=== PATIENT | male | born 1945 | race Caucasian/White ===

== ENCOUNTER 2016-08-22 18:19 | Inpatient (IN) | payer OTHER ==
[~2016-08-22] VITALS: Ht 182.9 cm; Wt 106.6 kg
[~2016-08-22 18:19] MED LIST: ALEVE220 M2 PO; COMBIVENT RESPIM4 GM; HYDROCODON-ACE1 EAC5 PO; HYSINGLA PO; MEDROL4 M2 PO; OMEPRAZOLE40 M1 PO; PERCOCET 5-3251 EACH PO; PREDNISONE10 M2 PO; PROVENTIL HFA6.7 GM INH; SPIRIVA18 MCG INH; SYMBICORT 16010.2 GM INH; TYLENOL EXTRA500 M2 PO
--- NOTE | 2016-08-22 18:23 | ED GENERAL ADULT ---
History of Present Illness General Chief Complaint: Dyspnea (COPD, CHF, Other) Stated Complaint: BIBA DYSPNEA Allergies Coded Allergies: NO KNOWN ALLERGIES (05/16/14) Reconcile Medications Acetaminophen (Tylenol Extra Strength) 500 MG TABLET 2 TAB PO PRN PAIN ( Reported) Albuterol Sulfate (Proventil Hfa) 90 MCG HFA.AER.AD 2 PUF INH PRN EMPHYSEMA ( Reported) Budesonide/Formoterol Fumarate (Symbicort 160-4.5 Mcg Inhaler) 160 MCG-4.5 MCG/ ACTUATION HFA.AER.AD 2 PUF INH TID EMPHYSEMA (Reported) Hydrocodone/Acetaminophen (Hydrocodon-Acetaminophen 5-300) (Unknown Strength) TABLET (Unknown Dose) PO TID PAIN (Reported) Naproxen Sodium (Aleve) 220 MG TABLET 2 TAB PO DAILY PAIN (Reported) Omeprazole 40 MG CAPSULE.DR 1 CAP PO DAILY GI (Reported) Prednisone 10 MG TABLET 0 PO SI COPD/Pneumonitis 06/15/16-06/19/16 take 6 tablets daily 06/20/16- 06/24/16 take 5 tablets daily 06/25/16- 06/29/16 take 4 tablets daily 06/30/16- 07/04/16 take 3 tablets daily 07/05/16-07/09/16 take 2 tablets daily 07/10/16- 07/14/16 take 1 tablet daily and then stop. 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
--- NOTE | 2016-08-22 18:26 | ED DYSPNEA/ASTHMA COMPLAINT ---
History of Present Illness General Chief Complaint: Dyspnea (COPD, CHF, Other) Stated Complaint: BIBA DYSPNEA Source: patient Exam Limitations: no limitations Vital Signs & Intake/Output Vital Signs & Intake/Output Vital Signs Date Time Temp Pulse Resp B/P Pulse O2 O2 Flow FiO2 Ox Delivery Rate 08/22 2058 97.5 91 20 127/77 92 Venti Mask 55% 08/22 190 94 Non 100% ReBreather 08/22 1854 97.8 104 20 107/75 94 Non 100% ReBreather 08/22 1836 97 Non 100% ReBreather Allergies Coded Allergies: NO KNOWN ALLERGIES (05/16/14) Reconcile Medications Acetaminophen (Tylenol Extra Strength) 500 MG TABLET 2 TAB PO PRN PAIN ( Reported) Albuterol Sulfate (Proventil Hfa) 90 MCG HFA.AER.AD 2 PUF INH PRN EMPHYSEMA ( Reported) Budesonide/Formoterol Fumarate (Symbicort 160-4.5 Mcg Inhaler) 160 MCG-4.5 MCG/ ACTUATION HFA.AER.AD 2 PUF INH TID EMPHYSEMA (Reported) Cholecalciferol (Vitamin D3) (Vitamin D) (Unknown Strength) TABLET (Unknown Dose) PO DAILY SUPPLEMENT (Reported) Cyanocobalamin (Vitamin B-12) (Unknown Strength) TABLET (Unknown Dose) PO QMON SUPPLEMENT (Reported) Hydrocodone/Acetaminophen (Hydrocodon-Acetaminophen 5-300) (Unknown Strength) TABLET (Unknown Dose) PO BID PAIN (Reported) Naproxen Sodium (Aleve) 220 MG TABLET 2 TAB PO DAILY PAIN (Reported) Omeprazole 40 MG CAPSULE.DR 1 CAP PO DAILY GI (Reported) Prednisone 10 MG TABLET 0 PO SI COPD/Pneumonitis 06/15/16-06/19/16 take 6 tablets daily 06/20/16- 06/24/16 take 5 tablets daily 06/25/16- 06/29/16 take 4 tablets daily 06/30/16- 07/04/16 take 3 tablets daily 07/05/16-07/09/16 take 2 tablets daily 07/10/16- 07/14/16 take 1 tablet daily and then stop. Tiotropium [place] (Spiriva) 18 MCG CAP.W.DEV 1 CAP INH DAILY EMPHYSEMA ( Reported) Triage Nurses Notes Reviewed? yes Onset: Abrupt Duration: day(s): (4), constant, continues in ED Timing: recent history Severity: moderate, severe HPI: 7-year-old male comes into the emergency room with complaints of shortness of breath is been going on for the past few weeks but increased over the past 4 days to the point where if he walks 5-6 feet he feels short of breath. Patient is on oxygen 60 L at home. History of COPD. Ambulance reports that his O2 saturation was 79% on arrival. They placed patient on high flow oxygen. His O2 saturation came up to the mid 90s. Patient denies any chest pain. Associated cough. Denies any vomiting or fever chills. Patient does admit to a history of blood clots in his left leg. Patient is currently not on anticoagulants. (YISSEL JOHN) Past History Travel History Traveled to [place] past 21 day No Medical History Any Pertinent Medical History? 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 No (YISSEL JOHN) Review of Systems Review of Systems Constitutional: Reports: see HPI. EENTM: Reports: no symptoms. Respiratory: Reports: see HPI. Cardiovascular: Reports: no symptoms. GI: Reports: no symptoms. Genitourinary: Reports: no symptoms. Musculoskeletal: Reports: no symptoms. Skin: Reports: no symptoms. Neurological/Psychological: Reports: no symptoms. Hematologic/Endocrine: Reports: no symptoms. Immunologic/Allergic: Reports: no symptoms. All Other Systems: Reviewed and Negative (YISSEL JOHN) Physical Exam Physical Exam General Appearance: alert, awake, moderate distress Head: atraumatic, normal appearance Eyes: Bilateral: normal appearance, EOMI. Ears, Nose, Throat: normal pharynx, normal ENT inspection Neck: normal inspection, full range of motion Respiratory: decreased breath sounds, respiratory distress (MODERATE) Cardiovascular: regular rate/rhythm Gastrointestinal: soft Extremities: normal inspection Neurologic/Psych: awake, alert, oriented x 3 Skin: intact, normal color Core Measures ACS in differential dx? No Severe Sepsis Present: No Septic Shock Present: No (YISSEL JOHN) Progress Differential Diagnosis: asthma, AMI, bronchitis, costochondritis, CHF, COPD, musculoskeletal pain, pericarditis, pulmonary embolism, pneumonia, pneumothorax, rib fracture, unstable angina Plan of Care: Orders Procedure Date/time Status Admit to inpatient 08/22 2227 Active THERAPIST ORDERS 08/22 2150 Complete ARTERIAL BLOOD GAS (GEN) 08/22 1826 Complete TROPONIN LEVEL 08/22 1826 Complete D-DIMER 08/22 1826 Complete COMPREHENSIVE METABOLIC PANEL 08/22 1826 Complete CBC WITHOUT DIFFERENTIAL 08/22 1826 Complete EKG 08/22 1826 Active Current Medications Sig/[place]etta Start time Last Medication Dose Stop Time Status Admin Azithromycin 500 MG ONCE ONE 08/22 2230 AC (Zithromax) 08/22 2329 Sodium Chloride 250 ML (Normal Saline 0.9%) Ceftriaxone Sodium 1,000 MG ONCE ONE 08/22 2230 AC (Rocephin) 08/22 2231 Laboratory Tests 08/22/161936: Anion Gap 10, Estimated GFR > 60, BUN/Creatinine Ratio 32.5 H, Glucose 126 H, Calcium 8.9, Total Bilirubin 1.0, AST 13 L, ALT 18 L, Alkaline Phosphatase 70, Troponin I < 0.01, Total Protein 6.3, Albumin 3.3 L, Globulin 3.0, Albumin/ Globulin Ratio 1.1, D-Dimer 833 H 08/22/161935: CBC w Diff NO MAN DIFF REQ, RBC 5.14, MCV 88.3, MCH 29.9, RDW 17.0 H, MPV 6.8 L, Gran % 84.7 H, Lymphocytes % 8.1 L, Monocytes % 6.9, Eosinophils % 0.1, Basophils % 0.2, Absolute Granulocytes 8.2 H, Absolute Lymphocytes 0.8 L, Absolute Monocytes 0.7 H, Absolute Eosinophils 0, Absolute Basophils 0, PUBS MCHC 33.8 08/22/161829: pH 7.46 H, pCO2 25 L, pO2 153 H, HCO3 17 L, ABG O2 Sat (Measured) 96.0, Carboxyhemoglobin 2.2, O2 Concentration % 100%, O2 Delivery Method NRB, Phlebotomy Draw Site RIGHT RADIAL Diagnostic Imaging: Viewed by Me: Radiology Read. Discussed w/RAD: Radiology Read. Radiology Impression: SERVICE DATE: 08/22/16 EXAM TYPE: RAD - XRY- PORTABLE CHEST XRAY EXAMINATION: XR PORTABLE CHEST CLINICAL INFORMATION: Shortness of breath. COMPARISON: Multiple prior studies. Most recent exams Chest x-ray 07/08/2016, CT chest 06/11/2016 TECHNIQUE: Portable view of the chest was obtained. 6:31 PM FINDINGS: Extensive interstitial lung disease similar prior studies. Lung volume is low. This likely accounts for the slight increased density in the peripheral lung at the mid and lower lobes relative to prior chest x-ray. An underlying infiltrate, particularly on the right lung, cannot be entirely excluded however. No pleural effusion. IMPRESSION: Extensive interstitial lung disease. Increased density in the right and left midlung which can be accentuated by the low inspiratory effort. An underlying infiltrate cannot be entirely excluded, particularly in the right lung. DICTATED BY: HAILY CAMP MD DATE/TIME DICTATED:08/22/161848 Initial ED EKG: normal intervals, normal p-waves, normal sinus rhythm, rate (101 ), nonspecific ST T wave chg, left anterior fascicular block Prior EKG: unchanged Hand-Off Endorsed To: MEHRDAD VALLADARES MD Endorsed Time: 1955 Pending: CT, labs (ERIN TRAN,YISSEL) Radiology Impression: PATIENT: YULISA FOWLER PRESENT AGE: 70 PATIENT ACCOUNT NO: [id number] : 45 LOCATION: [facility] ORDERING PHYSICIAN: YISSEL TRAN SERVICE DATE: 08/22/16 EXAM TYPE: CAT - CTA CHEST-PULMONARY EMBOLISM EXAMINATION: CT ANGIOGRAM OF THE CHEST WITH AND WITHOUT CONTRAST (CT PULMONARY ANGIOGRAM FOR PE) CLINICAL INFORMATION: Shortness of breath. Hypoxia. COMPARISON: CT chest 06/11/2016. Chest x-ray 08/22/2016 CT chest 12/12/2015 TECHNIQUE: Prior to contrast administration, noncontrast localization images were obtained. Subsequently, multidetector volumetric imaging was performed from the thoracic inlet to below the diaphragms following the administration of 85 mL Optiray 320 intravenous contrast. No contrast reaction reported Sagittal, coronal, and MIP oblique sagittal reformatted images were obtained on the CT workstation, uploaded to PACS, and reviewed. Total exam dose-length product 589.81 mGy-cm FINDINGS: QUALITY OF STUDY/CONTRAST BOLUS: Satisfactory. PULMONARY ARTERIES: No central or segmental pulmonary emboli. THORACIC AORTA: Thoracic aorta is mildly prominent measuring 4 cm transverse unchanged since prior study. There is vascular calcifications of the aortic arch. LUNG: There is underlying interstitial lung disease with emphysematous blebs of the lungs. No significant bronchiectasis. There is diffuse airspace disease with air bronchograms in the anterior right upper lobe in the posterior right lower lobe. This lung disease is worse than the exam of 06/11/2016 and is new since the CAT scan of 12/12/2015. No infiltrate of the left lung. PLEURA: No pleural effusion or pneumothorax. MEDIASTINUM: 1.5 cm diameter lymph node in the pretracheal retrovascular space and 1.4 cm lymph node in the subcarina. These lymph nodes are similar to the CAT scan of 06/11/2016. No evidence of septal bowing or right heart strain. CHEST WALL/AXILLA: No axillary or internal mammary lymphadenopathy. OSSEOUS STRUCTURES: Multilevel degenerative change of the spine with endplate spurs. UPPER ABDOMEN: Surgical changes at the gastroesophageal junction with small hiatal hernia. Cortical cyst at upper pole of right kidney. IMPRESSION: 1. No evidence of pulmonary embolism. 2. Chronic interstitial and emphysematous changes of lung. There is developing confluent airspace disease in the right lung that is worsening since prior exams. Finding of multifocal pneumonia. Patient does have history of lung cancer. Known underlying malignancy cannot be entirely excluded. There is associated mediastinal lymphadenopathy. VTE: Negative. DICTATED BY: HAILY CAMP MD DATE/TIME DICTATED:08/22/162131 RECORD LABEL INTERN:TANISHA DATE/TIME TRANSCRIBED:08/22/162131 CONFIDENTIAL, DO NOT COPY WITHOUT APPROPRIATE AUTHORIZATION. <Electronically signed in Other Vendor System> SIGNED BY: HAILY CAMP MD 08/22/162157 (JACQUELYN CORTÉS,MERHDAD Layton) Departure Departure Disposition: STILL A PATIENT Condition: Stable Clinical Impression Primary Impression: Dyspnea Referrals: JUANA VENEGAS MD (PCP/Family) Referred to [facility] as new patient No Departure Forms: Customer Survey General Discharge Information (YISSEL JHON) Admission Note Spoke With: ANDERS NESBITT MD Documentation of Exam: Documentation of any treatments & extenuating circumstances including Concerns Regarding Discharge (functional status, medication knowledge or non-compliance, living conditions, etc.) that warrant an admission rather than observation: [ Patient to be admitted for IV antibiotics and pulmonary consult. Patient is having increasing oxygen demand. Patient is at high risk to be discharged. EVEN ON high flow O2 and his saturations are 92% at rest.] PA/SUSTAINABILITY PROJECT COORDINATOR Co-Sign Statement Statement: ED Attending supervision documentation- [X] I saw and evaluated the patient. I have also reviewed all the pertinent lab results and diagnostic results. I agree with the findings and the plan of care as documented in the PA's/SUSTAINABILITY PROJECT COORDINATOR's documentation. [X] I have reviewed the ED Record and agree with the PA's/SUSTAINABILITY PROJECT COORDINATOR's documentation. [] Additions or exceptions (if any) to the PAs/SUSTAINABILITY PROJECT COORDINATOR's note and plan are summarized below: [] (JACQUELYN CORTÉS,MEHRDAD Layton) Critical Care Note Critical Care Note Critical Care Time: non-applicable (YISSEL JOHN)
[2016-08-22] MEDS ORDERED: VITAMIN D2000 UNI1 PO (18:56)
--- NOTE | 2016-08-22 18:56 | RADIOLOGY REPORT ---
EXAMINATION: XR PORTABLE CHEST CLINICAL INFORMATION: Shortness of breath. COMPARISON: Multiple prior studies. Most recent exams Chest x-ray 07/08/2016, CT chest 06/11/2016 TECHNIQUE: Portable view of the chest was obtained. 6:31 PM FINDINGS: Extensive interstitial lung disease similar prior studies. Lung volume is low. This likely accounts for the slight increased density in the peripheral lung at the mid and lower lobes relative to prior chest x-ray. An underlying infiltrate, particularly on the right lung, cannot be entirely excluded however. No pleural effusion. IMPRESSION: Extensive interstitial lung disease. Increased density in the right and left midlung which can be accentuated by the low inspiratory effort. An underlying infiltrate cannot be entirely excluded, particularly in the right lung.
[2016-08-22] MEDS ORDERED: VITAMIN B-121000 MC3 PO (18:57)
[2016-08-22 19:46] LABS: ABSOLUTE BASOPHIL COUNT 0 /CUMM (0.0-0.2); ABSOLUTE EOSINOPHIL COUNT 0 /CUMM (0.0-0.7); ABSOLUTE GRANULOCYTE CT 8.2 /CUMM (1.4-6.5); ABSOLUTE LYMPH COUNT 0.8 /CUMM (1.2-3.4); ABSOLUTE MONOCYTE COUNT 0.7 /CUMM (0.10-0.60); BASOPHIL % 0.2 % (0.0-2.0); EOSINOPHIL % 0.1 % (0-5); GRANULOCYTE % 84.7 % (42.2-75.2); HEMATOCRIT 45.4 % (42-52); MEAN CORPUSCULAR HGB 29.9 PG (27.0-31.0); MEAN CORPUSCULAR HGB CONC 33.8 G/DL (33.0-37.0); MEAN CORPUSCULAR VOLUME 88.3 FL (80.0-94.0); MEAN PLATELET VOLUME 6.8 FL (7.4-10.4); PLATELET COUNT 187 /CUMM (130-400); RED BLOOD CELL CT 5.14 /CUMM (4.70-6.10); WHITE BLOOD CELL COUNT 9.7 /CUMM (4.8-10.8)
--- NOTE | 2016-08-22 21:58 | CT SCAN REPORT ---
EXAMINATION: CT ANGIOGRAM OF THE CHEST WITH AND WITHOUT CONTRAST (CT PULMONARY ANGIOGRAM FOR PE) CLINICAL INFORMATION: Shortness of breath. Hypoxia. COMPARISON: CT chest 06/11/2016. Chest x-ray 08/22/2016 CT chest 12/12/2015 TECHNIQUE: Prior to contrast administration, noncontrast localization images were obtained. Subsequently, multidetector volumetric imaging was performed from the thoracic inlet to below the diaphragms following the administration of 85 mL Optiray 320 intravenous contrast. No contrast reaction reported Sagittal, coronal, and MIP oblique sagittal reformatted images were obtained on the CT workstation, uploaded to PACS, and reviewed. Total exam dose-length product 589.81 mGy-cm FINDINGS: QUALITY OF STUDY/CONTRAST BOLUS: Satisfactory. PULMONARY ARTERIES: No central or segmental pulmonary emboli. THORACIC AORTA: Thoracic aorta is mildly prominent measuring 4 cm transverse unchanged since prior study. There is vascular calcifications of the aortic arch. LUNG: There is underlying interstitial lung disease with emphysematous blebs of the lungs. No significant bronchiectasis. There is diffuse airspace disease with air bronchograms in the anterior right upper lobe in the posterior right lower lobe. This lung disease is worse than the exam of 06/11/2016 and is new since the CAT scan of 12/12/2015. No infiltrate of the left lung. PLEURA: No pleural effusion or pneumothorax. MEDIASTINUM: 1.5 cm diameter lymph node in the pretracheal retrovascular space and 1.4 cm lymph node in the subcarina. These lymph nodes are similar to the CAT scan of 06/11/2016. No evidence of septal bowing or right heart strain. CHEST WALL/AXILLA: No axillary or internal mammary lymphadenopathy. OSSEOUS STRUCTURES: Multilevel degenerative change of the spine with endplate spurs. UPPER ABDOMEN: Surgical changes at the gastroesophageal junction with small hiatal hernia. Cortical cyst at upper pole of right kidney. IMPRESSION: 1. No evidence of pulmonary embolism. 2. Chronic interstitial and emphysematous changes of lung. There is developing confluent airspace disease in the right lung that is worsening since prior exams. Finding of multifocal pneumonia. Patient does have history of lung cancer. Known underlying malignancy cannot be entirely excluded. There is associated mediastinal lymphadenopathy. VTE: Negative.
--- NOTE | 2016-08-22 23:55 | History & Physical ---
PAUL CORTÉS,[facility] 08/22/16 6584: General Information and HPI MD Statement: I have seen and personally examined YULISA FOWLER and documented this H&P. The patient is a 70 year old M who presented with a patient stated chief complaint of [progressive shortness of breath]. Source of Information: patient, old records Exam Limitations: no limitations History of Present Illness: 70/M with PMH of non-small cell lung cancer S/P radiation at [place] 4 months ago, COPD on 3 L at rest, 8 L on exertion, DVTs 20 years ago not on any anti- coagulation, who presented to [place] ED complaining of progressive shortness breath or the last 10 days. Patient shortness breath started 10 days ago, however according to the patient the last 4 days he became severely short of breath, Even a few steps can give him dyspnea and mild palpitation. Patient oxygen need significantly increased during the last month. Patient denies fever, chills, cough, chest pain, nausea, vomiting, sick contacts, or recent travel. Patient was admitted on May 2016 for acute hypoxic respiratory failure secondary to COPD exacerbation and radiation pneumonitis Patient stated that he received Flu shot this year and Pneumococcal vaccine last year. Allergies/Medications Allergies: Coded Allergies: NO KNOWN ALLERGIES (05/16/14) Home Med list Acetaminophen (Tylenol Extra Strength) 500 MG TABLET 2 TAB PO PRN PAIN ( Reported) Albuterol Sulfate (Proventil Hfa) 90 MCG HFA.AER.AD 2 PUF INH PRN EMPHYSEMA ( Reported) Budesonide/Formoterol Fumarate (Symbicort 160-4.5 Mcg Inhaler) 160 MCG-4.5 MCG/ ACTUATION HFA.AER.AD 2 PUF INH TID EMPHYSEMA (Reported) Cholecalciferol (Vitamin D3) (Vitamin D) (Unknown Strength) TABLET (Unknown Dose) PO DAILY SUPPLEMENT (Reported) Cyanocobalamin (Vitamin B-12) (Unknown Strength) TABLET (Unknown Dose) PO QMON SUPPLEMENT (Reported) Hydrocodone/Acetaminophen (Hydrocodon-Acetaminophen 5-300) (Unknown Strength) TABLET (Unknown Dose) PO BID PAIN (Reported) Naproxen Sodium (Aleve) 220 MG TABLET 2 TAB PO DAILY PAIN (Reported) Omeprazole 40 MG CAPSULE.DR 1 CAP PO DAILY GI (Reported) Prednisone 10 MG TABLET 0 PO SI COPD/Pneumonitis 06/15/16-06/19/16 take 6 tablets daily 06/20/16- 06/24/16 take 5 tablets daily 06/25/16- 06/29/16 take 4 tablets daily 06/30/16- 07/04/16 take 3 tablets daily 07/05/16-07/09/16 take 2 tablets daily 07/10/16- 07/14/16 take 1 tablet daily and then stop. 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 unknown Functional Ability ADLs Independent: dressing, eating, toileting, bathing. Ambulation: independent IADLs Independent: shopping, housework, finances, food prep, telephone, transportation , medication admin. Review of Systems Review of Systems Constitutional: Denies: chills, diaphoresis, fever. Cardiovascular: Reports: palpitations (very mild when SOB). Denies: chest pain, orthopena. Respiratory: Reports: short of breath. Denies: cough, hemoptysis, orthopnea, sputum production. GI: Denies: abdominal pain, bloating, constipation, diarrhea, distention, nausea, vomiting. Genitourinary: Denies: dysuria. Exam & Diagnostic Data Last 24 Hrs of Vital Signs/I&O Vital Signs Date Time Temp Pulse Resp B/P Pulse O2 O2 Flow FiO2 Ox Delivery Rate 08/23 0115 93 08/22 2351 97.8 87 20 134/79 94 40% 08/22 2058 97.5 91 20 127/77 92 Venti Mask 55% 08/22 1904 94 Non 100% ReBreather 08/22 1854 97.8 104 20 107/75 94 Non 100% ReBreather 08/22 1836 97 Non 100% ReBreather Intake & Output 08/23 0800 08/23 0000 08/22 1600 Intake Total Output Total Balance Patient 106.594 kg 106.594 kg Weight Physical Exam General Appearance Alert, Oriented X3, Cooperative, Moderate Distress Skin No Rashes HEENT Atraumatic, PERRLA, EOMI, Mucous Membr. moist/pink Neck No JVD Cardiovascular Regular Rate, Normal S1, Normal S2, No Murmurs Lungs mild wheezing on the right chest from the anterior side Abdomen Normal Bowel Sounds, Soft, No Tenderness Neurological Normal Speech Extremities No Cyanosis, No Edema, clubbing on all fingers Last 24 Hrs of Labs/Regan: Laboratory Tests 08/22/161936: Anion Gap 10, Estimated GFR > 60, BUN/Creatinine Ratio 32.5 H, Glucose 126 H, Calcium 8.9, Total Bilirubin 1.0, AST 13 L, ALT 18 L, Alkaline Phosphatase 70, Troponin I < 0.01, Ziv-D-Ucqliicqaum Pept 336 H, Total Protein 6.3, Albumin 3.3 L, Globulin 3.0, Albumin/Globulin Ratio 1.1, D-Dimer 833 H 08/22/161935: CBC w Diff NO MAN DIFF REQ, RBC 5.14, MCV 88.3, MCH 29.9, RDW 17.0 H, MPV 6.8 L, Gran % 84.7 H, Lymphocytes % 8.1 L, Monocytes % 6.9, Eosinophils % 0.1, Basophils % 0.2, Absolute Granulocytes 8.2 H, Absolute Lymphocytes 0.8 L, Absolute Monocytes 0.7 H, Absolute Eosinophils 0, Absolute Basophils 0, PUBS MCHC 33.8 08/22/161829: pH 7.46 H, pCO2 25 L, pO2 153 H, HCO3 17 L, ABG O2 Sat (Measured) 96.0, Carboxyhemoglobin 2.2, O2 Concentration % 100%, O2 Delivery Method NRB, Phlebotomy Draw Site RIGHT RADIAL Microbiology 08/23 250 URINE ROUT: Legionella Antigen - COMP 08/23 250 URINE ROUT: Streptococcus pneumoniae Antigen (M - COMP 08/23 215 BLOOD: Blood Culture - RECD 08/23 155 BLOOD: Blood Culture - RECD 08/23 42 LOWER RESP: Respiratory Culture - ORD 12/30 0042 LOWER RESP: Gram Stain - ORD Assessment/Plan Assessment: Assessment and plan Acute hypoxic respiratory failure 2/2 HAP. patient with COPD and radiation pneumonitis. Presented with a progressive shortness of breath. She was found to have a pneumonia on imaging. * Patient will be on high flow oxygen goal is saturations above 92% * TRC nebs [id number] * IV Solu-Medrol 40 every 8 hours for COPD * Received 1 dose of IV ceftriaxone and azithromycin in the ED.We'll start patient on vancomycin and ceftazidime to cover HCAP * Blood culture/sputum cultures * Urine strep and Legionella * Continue Symbicort, Spiriva, Ventolin inhalers * Pulmonary consult with Dr. Lowery in a.m. * Inform oncologist Dr. Yadav about the admissision #GERD * We will continue PPI for Heart healthy diet Lovenox Full code As Ranked By This Provider Problem List: 1. Lung cancer 2. Lung nodules 3. Hypoxemia 4. Acute respiratory failure Core Measures/Miscellaneous Acute Coronary Syndrome ACS Diagnosis: No Cerebrovascular Accident CVA/TIA Diagnosis: No Congestive Heart Failure CHF Diagnosis: No Venous Thromboembolism VTE Risk Factors: Acute medical illness, Age > 40, Cancer/chemo/oth therapy VTE Prophylaxis Ordered Inpt: Mech & Pharm No Mech VTE prophylaxis d/t: No contraindications No VTE Pharm Prophylaxis d/t: No contraindications VTE Diagnosis: No VTE Type: NONE VTE Confirmed by (Test): NONE Severe Sepsis Severe Sepsis Present: No Septic Shock Septic Shock Present: No Miscellaneous Documentation Attending Case Discussed With: ANDERS NESBITT MD Primary Care Physician: JUANA VENEGAS MD Patient sees these Specialists JUANA VENEGAS MD Level of Patient Care: General Medicine AMADO JEAN BAPTISTE 08/23/16 0021: Resident Review Statement Resident Statement: examined this patient, discussed with internal combustion engine assembler Other Findings: Patient is a 70-year-old male with past medical history of non-small cell lung cancer status post radiation at [place] 4 months ago, significant COPD/emphysema ( 3 L at rest, 8 L on exertion, previous history of DVTs not on any anti- coagulation), last admission in May 2016 for acute hypoxic respiratory failure secondary to COPD exacerbation and radiation pneumonitis presented to the hospital for increased shortness of breath and worsening respiratory distress. Denies any fever, chills, cough, sputum production, chest pain, palpitations, nausea, vomiting, sick contacts. Had Flu shot this season and Pneumococcal admission last year. His oxygen requirements has increased significantly over the past 4 weeks and he is barely able to ambulate 5-6 steps due to severe hypoxia. Patient desaturated to 79% in the ED and was put on high flow oxygen after which the saturations came up to 90%. Vitals in the ED temperature 97.8, pulse 104, respiration 20, blood pressure 107 /75 saturating 94% on high flow oxygen Labs showed no white count, H&H of 15.4/ 45.4, BUN 26, creatinine 0.8, AST 13, ALT 18, troponin negative, d-dimer 833 AB.46/25/153/17 Chest x-ray: Extensive interstitial lung disease, increased density in the right and the left midlung? Infiltrate in the right lung. Chest CTA: No PE..Chronic interstitial and emphysematous changes of lung. There is developing confluent airspace disease in the right lung that is worsening since prior exams. Finding of multifocal pneumonia.There is associated mediastinal lymphadenopathy. Physical exam: Gen.: Awake, alert, oriented 3, in moderate distress, speaking in full sentences. HEENT: PERRLA, EOMI, high flow oxygen CVS: Tachycardic, S1 and S2 heard, no murmurs rubs and gallops. Chest: Decreased breath sounds bilaterally, wheezing heard and really over the chest. Extremities:1+ pitting edema in bilateral lower extremities to mid shins , Clubbing of fingernails noted. Plan: 1.Acute hypoxic respiratory failure secondary to healthcare associated pneumonia in a patient with COPD/emphysematous changes and radiation pneumonitis. Low probability of PE, Low Wells score. Recent admission to the hospital 2 months ago for COPD exacerbation. [facility] -Continue high flow oxygen to keep oxygen saturations above 92% -TR nebs [id number]-[id number] -IV Solu-Medrol 40 every 8 hours -Received 1 dose of IV ceftriaxone and azithromycin in the ED.We'll start patient on vancomycin and ceftazidime to coverfor MRSA/ Gram negative septicemia. -Blood culture/sputum cultures -Urine strep and Legionella -Continue Symbicort, Spiriva, Ventolin inhalers -Pulmonary consult with Dr. Lowery in a.m. - Inform oncologist Dr. Yadav about the admissision -Continue PPI for GERD -Heart healthy diet -Mild pain pathway -Full code ANDERS NESBITT 08/23/16 0650: Attending MD Review Statement Attending Statement Attending MD Statement: examined this patient, discuss w/resident/PA/DIGITAL MARKETING APPRENTICE, agreed w/resident/PA/DIGITAL MARKETING APPRENTICE, reviewed EMR data (avail), reviewed images, amended to note Attending Assessment/Plan: CC : SOB PMHx: COPD on home oxygen at 3-5 L, remote history of DVT, diagnosis of lung cancer 6 months back status post radiation Patient complains of worsening shortness of breath since last 10 days, present at rest but more with exertion. Patient denies any cough, sputum production, chest pain, sick contacts, loss of consciousness, palpitations. Patient has chronic leg swelling since several years which has not changed recently. When patient could not take a few steps even to bathroom, he decided to come in ER. Patient states that his functionality has markedly declined since his radiation therapy approximately 4 months back, he was admitted in the month of May for suspected pneumonia. Even after treatment for that has not recovered to his normal. Before radiation therapy patient used to play golf for a few hours, now with progressively worsening of shortness of breath over the months, he cannot even walk a few steps. He is on tapering dose of by mouth steroids. He took his pneumonia vaccine last year, and flu shot this season. Vitals: Afebrile, heart rate 104 on presentation, respiratory rate 20-30, BP stable. Patient was saturating 79 % on 8 L nasal cannula at presentation, was started on nonrebreather and was saturating well at 90%. But patient had irritation of the mask so was changed to high flow nasal cannula, patient was maintaining O2 saturations are around 92%. But intermittently even with minimal exertion and talking patient's O2 saturation was dropping along with increased respiratory rate up to high 30s. On examination a O 3, accessory muscles of respiration in use, respiratory distress. No JVD, neck supple, mucosa dry, no lymphadenopathy, no pharyngeal congestion. CVS: S1-S2 heard Jorge and regular. RS: Diffuse crackles bilaterally. Markedly decreased air entry. Abdomen: Soft, NT, ND, bowel sounds present. Patient had pitting edema bilateral feet. Labs show WBC of 9.7 with granulocytes 84%. BUN 26, glucose 126, proBNP 336, d- dimer 833. ABG showed pH 7.46/25/153/17 100% NRB. CXR: Extensive interstitial lung disease. Increased density in the right and left midlung which can be accentuated by the low inspiratory effort. An underlying infiltrate cannot be entirely excluded, particularly in the right lung. CTA chest: No evidence of pulmonary embolism. Chronic interstitial and emphysematous changes of lung. There is developing confluent airspace disease in the right lung that is worsening since prior exams. Finding of multifocal pneumonia. Patient does have history of lung cancer. Known underlying malignancy cannot be entirely excluded. There is associated mediastinal lymphadenopathy. A and P #1 acute hypoxic respiratory failure: Probably secondary to pneumonia and the setting of underlying severe COPD #2 multifocal pneumonia and right lung: Patient does not have significant fever spike, had neutrophilia but patient is on by mouth steroids. CT findings suggest multifocal pneumonia. Given patient's immunocompromised state he may not mount appropriate reaction, he has been hospitalized in the last 3 months, for now we will cover for healthcare associated pneumonia with vancomycin and ceftaz, check flu test, sputum culture, blood culture, continue nebulization, continue high flow nasal cannula, he'll Mucinex, repeat ABG in the morning. Consult pulmonology and infectious diseases in morning. Continue IV prednisone 40 mg every 8 hourly given his extensive COPD. Patient had similar episode in the month of May at that time was found to have radiation pneumonitis. #3 patient and history of lung cancer: Status post radiation therapy. Informed oncology but patient's presence #4: DVT prophylaxis with Lovenox, adequate pain control.
[2016-08-23 06:37] VITALS: BP 98/57
[2016-08-23 06:39] VITALS: BP 110/67
--- NOTE | 2016-08-23 06:53 | Admission Certification ---
Admission Certification Certification Statement - As attending physician, I certify that at the time of - admission, based on clinical presentation, severity of - symptoms, need for further diagnostic testing and - therapeutic interventions, and risk of adverse outcomes - without in-hospital treatment, in my clinical assessment, - this patient requires an acute hospital stay for a minimum - of two nights or longer. I have also considered psychsocial - factors such as support system, advanced age, financial - issues, cognitive issues, and failed out-patient treatments, - past re-admission history, safety of patient, and lack of - compliance as applicable. Specific rationale supporting this admission is: Suspected multifocal right pneumonia, acute on chronic hypoxic respiratory failure
[2016-08-23 08:13] LABS: ABSOLUTE BASOPHIL COUNT 0 /CUMM (0.0-0.2); ABSOLUTE EOSINOPHIL COUNT 0 /CUMM (0.0-0.7); ABSOLUTE GRANULOCYTE CT 6.9 /CUMM (1.4-6.5); ABSOLUTE LYMPH COUNT 0.9 /CUMM (1.2-3.4); ABSOLUTE MONOCYTE COUNT 0.5 /CUMM (0.10-0.60); BASOPHIL % 0.1 % (0.0-2.0); EOSINOPHIL % 0.2 % (0-5); GRANULOCYTE % 82.1 % (42.2-75.2); HEMATOCRIT 41.4 % (42-52); MEAN CORPUSCULAR HGB 29.9 PG (27.0-31.0); MEAN CORPUSCULAR HGB CONC 33.8 G/DL (33.0-37.0); MEAN CORPUSCULAR VOLUME 88.5 FL (80.0-94.0); MEAN PLATELET VOLUME 7.1 FL (7.4-10.4); PLATELET COUNT 202 /CUMM (130-400); RBC DISTRIBUTION WIDTH 16.9 % (11.5-14.5); RED BLOOD CELL CT 4.68 /CUMM (4.70-6.10); WHITE BLOOD CELL COUNT 8.4 /CUMM (4.8-10.8)
--- NOTE | 2016-08-23 11:10 | Cons- Pulmonary ---
General Information and HPI Consulting Request Date of Consult: 08/23/16 Requested By: Med team History of Present Illness: 70/M with PMH of non-small cell lung cancer S/P radiation at [place] 4 months ago, COPD on 3 L at rest, 8 L on exertion, DVTs 20 years ago not on any anti- coagulation, who presented to [facility] ED complaining of progressive shortness breath or the last 10 days. Patient shortness breath started 10 days ago, however according to the patient the last 4 days he became severely short of breath, Even a few steps can give him dyspnea and mild palpitation. Patient oxygen need significantly increased during the last month. Patient denies fever, chills, cough, chest pain, nausea, vomiting, sick contacts, or recent travel. Patient was admitted on May 2016 for acute hypoxic respiratory failure secondary to COPD exacerbation and radiation pneumonitis Patient stated that he received Flu shot this year and Pneumococcal vaccine last year. 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 He has a significant prior smoking history, and developed worsening shortness of breath prompting a Chest CT on 08/01/15 which showed a spiculated 3 x 1.4 cm RUL lesion, and a 1.7 x 1.7cm RLL lesion. Pet showed uptake in both (SUVm 3.7 in the RUL lesion, and SUVm 5.7 in the RLL lesion), with no adenopathy or distant disease noted. CT guided biopsy of the RUL nodule was non-diagnostic. A repeat Chest CT showed radiographic progression of the 2 lesions. A mediastinoscopy on 01/02/16 was negative at station 4R. Despite lack of path confirmation, the two nodules were considered highly suspicious for lung cancers given his smoking history and the radiographic characteristics and progression on serial scans. With negative mediastinal staging, the RUL and RLL lesions were presumed to be independent stage I lung cancers, and therefore the patient underwent SBRT radiosurgery under the direction of Dr. Anat Hurtado. SUMMARY OF RADIATION THERAPY: Region Treated: RUL Technique: SBRT Radiation Energy: 6MV Dose per Fraction: 1000 cGy Number of Fractions: 5 Total Dose: 5000 cGy Region Treated: RLL Technique: SBRT Radiation Energy: 6MV Dose per Fraction: 1000 cGy Number of Fractions: 5 Total Dose: 5000 cGy Treatment Dates: 03/08/16 - 03/19/16 SInce xrt pt did have worsening dyspnea and he was recently rxd for xrt pna with a prolonged steroid taper Constitutional: Denies: chills, diaphoresis, fever. Cardiovascular: Reports: palpitations (very mild when SOB). Denies: chest pain, orthopena. Respiratory: Reports: short of breath. Denies: cough, hemoptysis, orthopnea, sputum production. GI: Denies: abdominal pain, bloating, constipation, diarrhea, distention, nausea, vomiting. Genitourinary: Denies: dysuria. Allergies/Medications Allergies: Coded Allergies: NO KNOWN ALLERGIES (05/16/14) Home Med List: Acetaminophen (Tylenol Extra Strength) 500 MG TABLET 2 TAB PO PRN PAIN ( Reported) Albuterol Sulfate (Proventil Hfa) 90 MCG HFA.AER.AD 2 PUF INH PRN EMPHYSEMA ( Reported) Budesonide/Formoterol Fumarate (Symbicort 160-4.5 Mcg Inhaler) 160 MCG-4.5 MCG/ ACTUATION HFA.AER.AD 2 PUF INH TID EMPHYSEMA (Reported) Cholecalciferol (Vitamin D3) (Vitamin D) (Unknown Strength) TABLET (Unknown Dose) PO DAILY SUPPLEMENT (Reported) Cyanocobalamin (Vitamin B-12) (Unknown Strength) TABLET (Unknown Dose) PO QMON SUPPLEMENT (Reported) Hydrocodone/Acetaminophen (Hydrocodon-Acetaminophen 5-300) (Unknown Strength) TABLET (Unknown Dose) PO BID PAIN (Reported) Naproxen Sodium (Aleve) 220 MG TABLET 2 TAB PO DAILY PAIN (Reported) Omeprazole 40 MG CAPSULE.DR 1 CAP PO DAILY GI (Reported) Prednisone 10 MG TABLET 0 PO SI COPD/Pneumonitis 06/15/16-06/19/16 take 6 tablets daily 06/20/16- 06/24/16 take 5 tablets daily 06/25/16- 06/29/16 take 4 tablets daily 06/30/16- 07/04/16 take 3 tablets daily 07/05/16-07/09/16 take 2 tablets daily 07/10/16- 07/14/16 take 1 tablet daily and then stop. Tiotropium [place] (Spiriva) 18 MCG CAP.W.DEV 1 CAP INH DAILY EMPHYSEMA ( Reported) Review of Systems Review of Systems Constitutional: Reports: see HPI. 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 unknown Functional Ability ADLs Independent: dressing, eating, toileting, bathing. Ambulation: independent IADLs Independent: shopping, housework, finances, food prep, telephone, transportation , medication admin. Exam & Diagnostic Data Last 24 Hrs of Vital Signs/I&O Vital Signs Date Time Temp Pulse Resp B/P Pulse O2 O2 Flow FiO2 Ox Delivery Rate 08/23 0639 98.6 68 20 110/67 96 08/23 0115 93 08/22 2351 97.8 87 20 134/79 94 40% 08/22 2058 97.5 91 20 127/77 92 Venti Mask 55% 08/22 1904 94 Non 100% ReBreather 08/22 1854 97.8 104 20 107/75 94 Non 100% ReBreather 08/22 1836 97 Non 100% ReBreather Intake & Output 08/23 1600 08/23 0800 08/23 0000 Intake Total 270 Output Total 325 Balance -55 Intake, IV 30 Intake, Oral 240 Output, Urine 325 Patient 235 lb 235 lb Weight Last 48 Hrs of Labs/Regan: Laboratory Tests 08/23/16 0655: Anion Gap 9, Estimated GFR > 60, BUN/Creatinine Ratio 30.0 H, CBC w Diff NO MAN DIFF REQ, RBC 4.68 L, MCV 88.5, MCH 29.9, RDW 16.9 H, MPV 7.1 L, Gran % 82.1 H, Lymphocytes % 11.2 L, Monocytes % 6.4, Eosinophils % 0.2, Basophils % 0.1, Absolute Granulocytes 6.9 H, Absolute Lymphocytes 0.9 L, Absolute Monocytes 0.5, Absolute Eosinophils 0, Absolute Basophils 0, PUBS MCHC 33.8 08/22/161936: Anion Gap 10, Estimated GFR > 60, BUN/Creatinine Ratio 32.5 H, Glucose 126 H, Calcium 8.9, Total Bilirubin 1.0, AST 13 L, ALT 18 L, Alkaline Phosphatase 70, Troponin I < 0.01, Jiy-O-Cwrpsswbeik Pept 336 H, Total Protein 6.3, Albumin 3.3 L, Globulin 3.0, Albumin/Globulin Ratio 1.1, D-Dimer 833 H 08/22/161935: CBC w Diff NO MAN DIFF REQ, RBC 5.14, MCV 88.3, MCH 29.9, RDW 17.0 H, MPV 6.8 L, Gran % 84.7 H, Lymphocytes % 8.1 L, Monocytes % 6.9, Eosinophils % 0.1, Basophils % 0.2, Absolute Granulocytes 8.2 H, Absolute Lymphocytes 0.8 L, Absolute Monocytes 0.7 H, Absolute Eosinophils 0, Absolute Basophils 0, PUBS MCHC 33.8 08/22/161829: pH 7.46 H, pCO2 25 L, pO2 153 H, HCO3 17 L, ABG O2 Sat (Measured) 96.0, Carboxyhemoglobin 2.2, O2 Concentration % 100%, O2 Delivery Method NRB, Phlebotomy Draw Site RIGHT RADIAL Microbiology 08/23 250 URINE ROUT: Legionella Antigen - COMP 08/23 250 URINE ROUT: Streptococcus pneumoniae Antigen (M - COMP Assessment/Plan Impression/Plan: CT CHEST WITH IVC IMPRESSION: 1. No evidence of pulmonary embolism. 2. Chronic interstitial and emphysematous changes of lung. There is developing confluent airspace disease in the right lung that is worsening since prior exams. Finding of multifocal pneumonia. Patient does have history of lung cancer. Known underlying malignancy cannot be entirely excluded. There is associated mediastinal lymphadenopathy. VTE: Negative. DICTATED BY: HAILY CAMP MD DATE/TIME DICTATED:08/22/162131 Physical Exam General Appearance Alert, Oriented X3, Cooperative, Moderate Distress Skin No Rashes HEENT Atraumatic, PERRLA, EOMI, Mucous Membr. moist/pink Neck No JVD Cardiovascular Regular Rate, Normal S1, Normal S2, No Murmurs Lungs mild wheezing on the right chest from the anterior side Abdomen Normal Bowel Sounds, Soft, No Tenderness Neurological Normal Speech Extremities No Cyanosis, No Edema, clubbing on all fingers This is a 70-year-old gentleman with very advanced emphysema with previous clinical diagnosis of right upper lobe and right lower lobe 2 separate primary lung cancers T2 probable N0 and T1 probable N0 with previous negative biopsy including negative biopsy for 4R lymph node with significant PET abnormality for which she has had radiation therapy at [place] now subsequently has worsening overall performance status with significant shortness of breath and CT scan suggestive of worsening pulmonary infiltrates with air bronchogram in the anterior right upper lobe and in the posterior right lower lobe which seems to be much worse since May 2016. His issues include * Acute hypoxemic respiratory failure related to very severe COPD now with worsening lung cancer in the right side clinically versus radiation pneumonitis. Bacterial pneumonitis seems less likely however it cannot be ruled out * Use had worsening mediastinal lymphadenopathy suggestive of tumor regression * No clinical evidence suggestive of invasive Aspergillus her PCP etc. however that may need to be ruled out if he clinically improves * Severe emphysema with worsening performance status * Recent evidence suggestive of radiation pneumonitis which is still present * Hiatal hernia with GERD * Anxiety/depression. Recommendation * Continue intravenous antibiotics which him to ceftazidime and azithromycin * Sputum culture * Swab his nose for MRSA * Start him on intravenous Solu-Medrol 40 mg every 8 foot 3 days then 40 mg every 12 * High flow oxygen therapy * Continue his current bronchodilator * Albuterol nebulizer therapy 4 times a day when necessary * Low-dose by mouth delighted if he has worsening shortness of breath * Had an extensive discussion with the patient and also discussed with his daughter over the telephone. The recent past his overall performance status and his dyspnea is getting worse. Patient is becoming more hypoxemic. This is due to combination of very severe COPD with emphysema and worsening lung cancer in the right lung. Patient wishes conservative therapy only. He wishes maximum medical therapy and he does not wish to be intubated. He wished to be made DNR/ DNI. If he were to deteriorate further he is can a consider palliative therapy. At this present time he should continue maximum medical therapy and decide on further care depending on his clinical progression. Prognosis is guarded. Discussed with his daughter over the telephone also extensively in the patient. * If he gets worse he could be transferred to the intensive care unit for better monitoring but however patient will be DNR/DNI. Consult Acknowledgment - Thank you for your consult request.
--- NOTE | 2016-08-23 11:27 | PN- Housestaff ---
CRISTINA CORTÉS,GRISELDA 08/23/16 1127: Subjective Follow-up For: Acute hypoxic respiratory failure Multifocal pneumonia COPD exacerbation Subjective: Patient seen and examined at bedside. He endorses persistent shortness of breath on exertion. Patient reports his dyspnea has been progressively worsening over the past 3 months. Patient understand the severeity of his lung disease and thus poor prognosis. Code status has been changed to DNR/DNI subsequently. Denies any chest pain, palpitations, f/c/n/v/c/d. Review of Systems Constitutional: Reports: see HPI. Objective Last 24 Hrs of Vital Signs/I&O Vital Signs Date Time Temp Pulse Resp B/P Pulse O2 O2 Flow FiO2 Ox Delivery Rate 08/23 1634 92 Nasal 7.0L Cannula 08/23 1418 99.0 99 20 110/64 94 08/23 1224 94 Nasal 8L Cannula 08/23 1209 Nasal 8L Cannula 08/23 0800 Nasal 40% Cannula 08/23 0639 98.6 68 20 110/67 96 08/23 0115 93 08/22 2351 97.8 87 20 134/79 94 40% 08/22 2058 97.5 91 20 127/77 92 Venti Mask 55% 08/22 1904 94 Non 100% ReBreather 08/22 1854 97.8 104 20 107/75 94 Non 100% ReBreather Intake & Output 08/23 1600 08/23 0800 08/23 0000 Intake Total 1100 270 Output Total 325 Balance 1100 -55 Intake, IV 500 30 Intake, Oral 600 240 Output, Urine 325 Patient 106.594 kg 106.594 kg Weight Physical Exam General Appearance: Alert, Oriented X3, Cooperative, No Acute Distress Other Physical Findings: Skin No Rashes HEENT Atraumatic, PERRLA, EOMI, Mucous Membr. moist/pink Neck No JVD Cardiovascular Regular Rate, Normal S1, Normal S2, No Murmurs Lungs mild wheezing on the right chest from the anterior side Abdomen Normal Bowel Sounds, Soft, No Tenderness Neurological Normal Speech Extremities No Cyanosis, No Edema, clubbing on all fingers Current Medications: Current Medications Sig/Rosetta Start time Last Medication Dose Route Stop Time Status Admin Acetaminophen 325 MG Q6P PRN 08/22 2315 AC PO Albuterol Sulfate 2 PUF Q6P PRN 08/23 1400 AC INH Albuterol Sulfate 2 PUF BID 08/23 1000 DC 08/23 INH 0912 Albuterol Sulfate 3 ML ONCE ONE 08/22 1845 DC 08/22 INH 08/22 1846 1830 Azithromycin 500 MG ONCE ONE 08/22 2230 DC 08/22 Sodium Chloride 250 ML IV 08/22 2329 2250 Budesonide/ 2 PUF TID 08/23 1000 AC 08/23 Formoterol Fumarate INH 1720 Ceftazidime 1,000 MG IQ8 08/23 0800 AC 08/23 IV 1720 Ceftriaxone Sodium 0 .STK-MED ONE 08/22 2238 DC .ROUTE Ceftriaxone Sodium 1,000 MG ONCE ONE 08/22 2230 DC 08/22 IV 08/22 223 2250 Cholecalciferol 1,000 IU DAILY 08/23 1000 AC 08/23 PO 0912 Enoxaparin Sodium 40 MG DAILY 08/23 1000 AC 08/23 SC 0912 Guaifenesin 600 MG Q12 08/23 0222 AC 08/23 PO 0912 Ipratropium [place] 2.5 ML ONCE ONE 08/22 1845 DC 08/22 INH 08/22 184 1830 Methylprednisolone 40 MG Q12 08/26 1000 AC IV Methylprednisolone 0 .STK-MED ONE 08/228 DC .ROUTE Methylprednisolone 40 MG Q8 08/22 2330 AC 08/23 IV 08/25 2300 1320 Naproxen 500 MG .STK-MED ONE 08/23 0557 DC PO 08/23 0558 Naproxen 250 MG BID PRN 08/22 2315 AC 08/23 PO 0601 Omeprazole 40 MG DAILY AC 08/23 0700 AC 08/23 PO 0600 Prednisone 10 MG DAILY 08/23 1000 CAN PO Sodium Chloride 1,000 ML Q13H 08/23 0100 CAN IV 08/23 1359 Tiotropium [place] 1 PUF DAILY 08/23 1000 AC 08/23 INH 1053 Vancomycin HCl 1,500 MG DAILY 08/23 1000 DC Sodium Chloride 500 ML IV Vancomycin HCl 1,500 MG Q12 08/23 1000 AC 08/23 Sodium Chloride 500 ML IV 1055 Last 24 Hrs of Lab/Rgean Results Last 24 Hrs of Labs/Mics: Laboratory Tests 08/23/16 0655: Anion Gap 9, Estimated GFR > 60, BUN/Creatinine Ratio 30.0 H, CBC w Diff NO MAN DIFF REQ, RBC 4.68 L, MCV 88.5, MCH 29.9, RDW 16.9 H, MPV 7.1 L, Gran % 82.1 H, Lymphocytes % 11.2 L, Monocytes % 6.4, Eosinophils % 0.2, Basophils % 0.1, Absolute Granulocytes 6.9 H, Absolute Lymphocytes 0.9 L, Absolute Monocytes 0.5, Absolute Eosinophils 0, Absolute Basophils 0, PUBS MCHC 33.8 08/22/161936: Anion Gap 10, Estimated GFR > 60, BUN/Creatinine Ratio 32.5 H, Glucose 126 H, Calcium 8.9, Total Bilirubin 1.0, AST 13 L, ALT 18 L, Alkaline Phosphatase 70, Troponin I < 0.01, Lrg-D-Ezporwbiqae Pept 336 H, Total Protein 6.3, Albumin 3.3 L, Globulin 3.0, Albumin/Globulin Ratio 1.1, D-Dimer 833 H 08/22/161935: CBC w Diff NO MAN DIFF REQ, RBC 5.14, MCV 88.3, MCH 29.9, RDW 17.0 H, MPV 6.8 L, Gran % 84.7 H, Lymphocytes % 8.1 L, Monocytes % 6.9, Eosinophils % 0.1, Basophils % 0.2, Absolute Granulocytes 8.2 H, Absolute Lymphocytes 0.8 L, Absolute Monocytes 0.7 H, Absolute Eosinophils 0, Absolute Basophils 0, PUBS MCHC 33.8 Microbiology 08/23 1359 UPPER RESP: Surveillance Culture - CAN Cancelled: Cancelled via OE: Duplicate Order 08/23 250 URINE ROUT: Legionella Antigen - COMP 08/23 250 URINE ROUT: Streptococcus pneumoniae Antigen (M - COMP 08/23 0215 BLOOD: Blood Culture - RECD 08/23 0155 BLOOD: Blood Culture - RECD 08/23 42 LOWER RESP: Respiratory Culture - COLB 08/23 42 LOWER RESP: Gram Stain - COLB Assessment/Plan Assessment: 70-year-old male with past medical history of non-small cell lung cancer status post radiation at [place] 3 months ago, 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 His acute hypoxic respiratory failure most likely 2/2 HCAP with a component of advanced emphysema and radiation pneumonitis. # Acute hypoxic respiratory failure Patient desaturated to 79% in the ED, requiring high flow oxygen after which the saturations came above 90%. This is most likely 2/2 HCAP and advanced COPD/ emphysema. It is also likely that radiation pneumonitis has developed following his XRT 3 months ago. Patient received 1 dose of IV ceftriaxone and azithromycin in the ED. * Adequate oxygen support to maintain saturations above 92% * TRC nebulizer treatment [id number] * Begin steroid as discussed below * Antimicrobial therapy as discussed below * Follow pulmonary recs # Multifocal pneumonia * Cont IV vancomycin and ceftazidime to coverfor MRSA/Gram negative septicemia * Discontinue vanco if MRSA screening of the nare is negative * Cont to monitor for signs of SIRS * Follow blood/sputum cultures * Urine strep and Legionella # Advanced COPD/emphysema * IV Solu-Medrol 40mg Q8H * Continue Symbicort, Spiriva, Ventolin inhalers * TRC neb treatment # Lung cancer Patient has a presumably independen primary NSCLCs of the right upper lobe and right lower lobe, cT2aN0 and cT1bN0, respectively. S/p 5 cylcles of XRT (last session 3 months ago). Chest CT on 08/01/15 showed a spiculated 3 x 1.4 cm RUL lesion, and a 1.7 x 1.7cm RLL lesion. PET showed uptake in both (SUVm 3.7 in the RUL lesion, and SUVm 5.7 in the RLL lesion), with no adenopathy or distant disease noted. CT guided biopsy of the RUL nodule was non-diagnostic. A repeat Chest CT showed radiographic progression of the 2 lesions. A mediastinoscopy on 01/02/16 was negative at station 4R. Despite lack of path confirmation, the two nodules were considered highly suspicious for lung cancers given his smoking history and the radiographic characteristics and progression on serial scans. With negative mediastinal staging, the RUL and RLL lesions were presumed to be independent stage I lung cancers, and therefore the patient underwent SBRT radiosurgery under the direction of Dr. Cristina Hurtado. * Per Dr. Yadav, no interventions recommended from oncology standpoint at this point. Patient is not a candidate for chemotherapy. Radiation is currently not indicated as patient may be actively suffering from radiation pneumonitis. # GERD # Mild pain pathway # Heart healthy diet # DNR/I Problem List: 1. Protrusion of intervertebral disc of lumbosacral region 2. Emphysema lung 3. Lung nodules 4. Hypoxemia 5. Lung cancer 6. Acute respiratory failure 7. COPD exacerbation 8. Radiation pneumonitis 9. Dyspnea Pain Ratin Pain Location: 0 Pain Goal: Remain pain free Pain Plan: Mild pain pathway Tomorrow's Labs & Rationales: CBC to monitor for infection CLARISSA CORTÉS,ANA 08/23/16 1525: Attending MD Review Statement Attending Statement Attending MD Statement: examined this patient, discuss w/resident/PA/PROCESS CONTROL SUPERVISOR, agreed w/resident/PA/PROCESS CONTROL SUPERVISOR, reviewed EMR data (avail), discussed with nursing, discussed with case mgmt, amended to note Attending Assessment/Plan: Patient seen and examined. Case discussed with his caddy master Jens Lowery MD. He is currently comfortable at rest. He is obviously distressed about his overall prognosis which is poor. His current condition appears to be secondary to his underlying severe COPD and worsening pulmonary cancer. Ocular pneumonia is within the differential although less likely in the absence of fever or leukocytosis. His respiratory condition has been worsening over the past few months particularly over the past week. He has now agreed for DO NOT RESUSCITATE/DO NOT INTUBATE status. He also states that he does not wish to be transferred to the intensive care unit should the need arise. His wishes at that his condition deteriorates he would like to be transition home if possible. We will continue therapy through the weekend with antibiotic therapy and steroids in hopes for improvement of his respiratory status. Patient will be reevaluated on Friday with a discussion with his family regarding goals at that point.
[2016-08-23 14:18] VITALS: BP 110/64
[2016-08-23 22:30] VITALS: BP 120/76
[2016-08-24 06:30] VITALS: BP 132/70
[2016-08-24 08:06] LABS: ABSOLUTE BASOPHIL COUNT 0 /CUMM (0.0-0.2); ABSOLUTE EOSINOPHIL COUNT 0 /CUMM (0.0-0.7); ABSOLUTE GRANULOCYTE CT 9.3 /CUMM (1.4-6.5); ABSOLUTE LYMPH COUNT 0.9 /CUMM (1.2-3.4); ABSOLUTE MONOCYTE COUNT 0.6 /CUMM (0.10-0.60); BASOPHIL % 0 % (0.0-2.0); EOSINOPHIL % 0 % (0-5); GRANULOCYTE % 85.9 % (42.2-75.2); HEMATOCRIT 43.4 % (42-52); MEAN CORPUSCULAR HGB 30.1 PG (27.0-31.0); MEAN CORPUSCULAR HGB CONC 33.9 G/DL (33.0-37.0); MEAN CORPUSCULAR VOLUME 88.8 FL (80.0-94.0); MEAN PLATELET VOLUME 7.3 FL (7.4-10.4); PLATELET COUNT 209 /CUMM (130-400); RED BLOOD CELL CT 4.89 /CUMM (4.70-6.10); WHITE BLOOD CELL COUNT 10.8 /CUMM (4.8-10.8)
--- NOTE | 2016-08-24 11:30 | PN- Housestaff ---
FLYNN CORTÉS,[facility] 08/24/16 1130: Subjective Follow-up For: Acute hypoxic respiratory failure Multifocal pneumonia COPD exacerbation Subjective: Patient seen and examined this morning. He was lying comfortably in bed in no acute distress oxygen has been brought down to 7 L satting high 90s. He maintains afebrile, cough improving. No other complaints. Review of Systems Constitutional: Reports: see HPI. Objective Last 24 Hrs of Vital Signs/I&O Vital Signs Date Time Temp Pulse Resp B/P Pulse O2 O2 Flow FiO2 Ox Delivery Rate 08/24 0630 97.9 81 20 132/70 92 Nasal 6.5L Cannula 08/24 0000 Nasal 6.5L Cannula 08/23 2230 98.9 92 20 120/76 95 Nasal 6.5L Cannula 08/23 1849 91 Nasal 7.0L Cannula 08/23 1634 92 Nasal 7.0L Cannula 08/23 1600 Nasal 8L Cannula 08/23 1418 99.0 99 20 110/64 94 08/23 1224 94 Nasal 8L Cannula 08/23 1209 Nasal 8L Cannula Intake & Output 08/24 1600 08/24 0800 08/24 0000 Intake Total 740 960 Output Total Balance 740 960 Intake, IV 500 Intake, Oral 240 960 Number 0 Bowel Movements Physical Exam General Appearance: Alert, Oriented X3, Cooperative, No Acute Distress Cardiovascular: Regular Rate, Normal S1, Normal S2, No Murmurs Lungs: Clear to Auscultation Abdomen: Normal Bowel Sounds, Soft, No Tenderness Neurological: Normal Speech Extremities: No Clubbing, No Cyanosis, No Edema Current Medications: Current Medications Sig/Rosetta Start time Last Medication Dose Route Stop Time Status Admin Acetaminophen 325 MG Q6P PRN 08/22 2315 AC PO Albuterol Sulfate 2 PUF Q6P PRN 08/23 1400 AC INH Albuterol Sulfate 2 PUF BID 08/23 1000 DC 08/23 INH 0912 Budesonide/ 2 PUF TID 08/23 1000 AC 08/24 Formoterol Fumarate INH 1119 Ceftazidime 1,000 MG IQ8 08/23 0800 AC 08/24 IV 0936 Cholecalciferol 1,000 IU DAILY 08/23 1000 AC 08/24 PO 1121 Enoxaparin Sodium 40 MG DAILY 08/23 1000 AC 08/24 SC 1121 Guaifenesin 600 MG Q12 08/23 0222 AC 08/24 PO 1121 Methylprednisolone 40 MG Q12 08/26 1000 AC IV Methylprednisolone 40 MG Q8 08/22 2330 AC 08/24 IV 08/25 2300 0708 Naproxen 500 MG ONCE PRN 08/230 DC 08/23 PO 08/23 2131 2237 Naproxen 250 MG BID PRN 08/22 2315 AC 08/23 PO 0601 Omeprazole 40 MG DAILY AC 08/23 0700 AC 08/24 PO 0708 Tiotropium [place] 1 PUF DAILY 08/23 1000 AC 08/24 INH 1119 Vancomycin HCl 1,500 MG Q12 08/23 1000 AC 08/23 Sodium Chloride 500 ML IV 2236 Last 24 Hrs of Lab/Regan Results Last 24 Hrs of Labs/Mics: Laboratory Tests 08/24/16 0600: CBC w Diff NO MAN DIFF REQ, RBC 4.89, MCV 88.8, MCH 30.1, RDW 17.0 H, MPV 7.3 L, Gran % 85.9 H, Lymphocytes % 8.5 L, Monocytes % 5.6, Eosinophils % 0, Basophils % 0 L, Absolute Granulocytes 9.3 H, Absolute Lymphocytes 0.9 L, Absolute Monocytes 0.6, Absolute Eosinophils 0, Absolute Basophils 0, PUBS MCHC 33.9 Microbiology 08/23 1359 UPPER RESP: Surveillance Culture - CAN Cancelled: Cancelled via OE: Duplicate Order Assessment/Plan Assessment: 70-year-old male with past medical history of non-small cell lung cancer status post radiation at [place] 3 months ago, 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 His acute hypoxic respiratory failure most likely 2/2 HCAP with a component of advanced emphysema and radiation pneumonitis. # Acute hypoxic respiratory failure Patient desaturated to 79% in the ED, requiring high flow oxygen after which the saturations came above 90%. This is most likely 2/2 HCAP and advanced COPD/ emphysema. It is also likely that radiation pneumonitis has developed following his XRT 3 months ago. Patient received 1 dose of IV ceftriaxone and azithromycin in the ED. * Adequate oxygen support to maintain saturations above 92% * TRC nebulizer treatment [id number] * Begin steroid as discussed below * Antimicrobial therapy as discussed below * Follow pulmonary recs # Multifocal pneumonia * Cont IV vancomycin and ceftazidime to coverfor MRSA/Gram negative septicemia * Discontinue vanco if MRSA screening of the nare is negative * Cont to monitor for signs of SIRS * Follow blood/sputum cultures * Urine strep and Legionella # Advanced COPD/emphysema * IV Solu-Medrol 40mg Q8H * Continue Symbicort, Spiriva, Ventolin inhalers * TRC neb treatment # Lung cancer Patient has a presumably independen primary NSCLCs of the right upper lobe and right lower lobe, cT2aN0 and cT1bN0, respectively. S/p 5 cylcles of XRT (last session 3 months ago). Chest CT on 08/01/15 showed a spiculated 3 x 1.4 cm RUL lesion, and a 1.7 x 1.7cm RLL lesion. PET showed uptake in both (SUVm 3.7 in the RUL lesion, and SUVm 5.7 in the RLL lesion), with no adenopathy or distant disease noted. CT guided biopsy of the RUL nodule was non-diagnostic. A repeat Chest CT showed radiographic progression of the 2 lesions. A mediastinoscopy on 01/02/16 was negative at station 4R. Despite lack of path confirmation, the two nodules were considered highly suspicious for lung cancers given his smoking history and the radiographic characteristics and progression on serial scans. With negative mediastinal staging, the RUL and RLL lesions were presumed to be independent stage I lung cancers, and therefore the patient underwent SBRT radiosurgery under the direction of Dr. Anat Hurtado. * Per Dr. Yadav, no interventions recommended from oncology standpoint at this point. Patient is not a candidate for chemotherapy. Radiation is currently not indicated as patient may be actively suffering from radiation pneumonitis. # GERD # Mild pain pathway # Heart healthy diet # DNR/I Problem List: 1. Dyspnea 2. COPD exacerbation 3. Lung cancer Pain Ratin Pain Location: none Pain Goal: Remain pain free Pain Plan: Mild pain pathway Tomorrow's Labs & Rationales: CBC in setting of infection ANA ROMO MD 08/24/16 1141: Attending MD Review Statement Attending Statement Attending MD Statement: examined this patient, discuss w/resident/PA/FINGER BUFFS ASSEMBLER, agreed w/resident/PA/FINGER BUFFS ASSEMBLER, reviewed EMR data (avail), discussed with nursing, discussed with case mgmt, amended to note Attending Assessment/Plan: Patient seen and examined. Lying comfortably in bed not in any acute distress. He reports feeling better today. Reports been able to walk to the bathroom unassisted. He is currently maintaining saturation on about 6 L of oxygen. On examination entry is fair bilaterally with no added sounds. He has no jugular venous distention. He has no peripheral edema. His symptomatology is likely a combination of his underlying COPD, pulmonary malignancy and possible radiation pneumonitis. We will continue systemic steroid therapy through the weekend. We begin slowly tapering his steroid therapy today and continue empiric antibiotic therapy.
--- NOTE | 2016-08-24 11:39 | PN- Att Addend ---
Attending Addendum Attending Brief Note Patient seen and examined. Lying comfortably in bed not in any acute distress. He reports feeling better today. Reports been able to walk to the bathroom unassisted. He is currently maintaining saturation on about 6 L of oxygen. On examination entry is fair bilaterally
--- NOTE | 2016-08-24 13:13 | PN- Pulmonary ---
Subjective HPI/Critical Care Issues: The patient is awake and alert. He reports feeling somewhat improved. His oxygen requirement continues to improve since admission. He reports feeling anxious. He denies any chest pain, chest congestion, or sputum production. He continues to have physically limiting shortness of breath. He denies any fever or chills. Overall, the patient feels that he is getting better and denies any new complaints today. Objective Current Medications: Current Medications Sig/Rosetta Start time Last Medication Dose Route Stop Time Status Admin Acetaminophen 325 MG Q6P PRN 08/22 2315 AC PO Albuterol Sulfate 2 PUF Q6P PRN 08/23 1400 AC INH Albuterol Sulfate 2 PUF BID 08/23 1000 DC 08/23 INH 0912 Budesonide/ 2 PUF TID 08/23 1000 AC 08/24 Formoterol Fumarate INH 1119 Ceftazidime 1,000 MG IQ8 08/23 0800 AC 08/24 IV 0936 Cholecalciferol 1,000 IU DAILY 08/23 1000 AC 08/24 PO 1121 Enoxaparin Sodium 40 MG DAILY 08/23 1000 AC 08/24 SC 1121 Guaifenesin 600 MG Q12 08/23 0222 AC 08/24 PO 1121 Methylprednisolone 40 MG Q12 08/26 1000 AC IV Methylprednisolone 40 MG Q8 08/22 2330 AC 08/24 IV 08/25 2300 0708 Naproxen 500 MG ONCE PRN 08/23 2130 DC 08/23 PO 08/23 2131 2237 Naproxen 250 MG BID PRN 08/22 2315 AC 08/23 PO 0601 Omeprazole 40 MG DAILY AC 08/23 0700 AC 08/24 PO 0708 Tiotropium [place] 1 PUF DAILY 08/23 1000 AC 08/24 INH 1119 Vancomycin HCl 1,500 MG Q12 08/23 1000 AC 08/23 Sodium Chloride 500 ML IV 2236 Vital Signs & I&O Last 24 Hrs of Vitals and I&O: Vital Signs Date Time Temp Pulse Resp B/P Pulse O2 O2 Flow FiO2 Ox Delivery Rate 08/24 1218 94 Nasal 7.0L Cannula 08/24 630 97.9 81 20 132/70 92 Nasal 6.5L Cannula 08/24 0000 Nasal 6.5L Cannula 08/23 2230 98.9 92 20 120/76 95 Nasal 6.5L Cannula 08/23 1849 91 Nasal 7.0L Cannula 08/23 1634 92 Nasal 7.0L Cannula 08/23 1600 Nasal 8L Cannula 08/23 1418 99.0 99 20 110/64 94 Intake & Output 08/24 1600 08/24 0800 08/24 0000 Intake Total 740 960 Output Total Balance 740 960 Intake, IV 500 Intake, Oral 240 960 Number 0 Bowel Movements Exam General Appearance: no apparent distress, alert, awake, comfortable Head: atraumatic, normal appearance Neck: supple Respiratory: Faint bilateral crackles and scattered rhonchi Cardiovascular: regular rate/rhythm Abdomen: normal bowel sounds, soft, non-tender Extremities: no edema Skin: intact, normal color, warm/dry Results Last 24 Hrs of Lab Results: Laboratory Tests 08/24/16 0600: CBC w Diff NO MAN DIFF REQ, RBC 4.89, MCV 88.8, MCH 30.1, RDW 17.0 H, MPV 7.3 L, Gran % 85.9 H, Lymphocytes % 8.5 L, Monocytes % 5.6, Eosinophils % 0, Basophils % 0 L, Absolute Granulocytes 9.3 H, Absolute Lymphocytes 0.9 L, Absolute Monocytes 0.6, Absolute Eosinophils 0, Absolute Basophils 0, PUBS MCHC 33.9 Last 24 Hrs of Micro Results: Cultures are negative to date. Impression/Plan Impression/Plan Impression/Plan: 1. Acute hypoxemic rest or failure related to very severe COPD with worsening lung cancer versus radiation pneumonitis. A superimposed superinfection needs to be excluded as well. 2. 2 separate lung cancers in the past, treated with radiation. 3. Hiatal hernia with superimposed GERD. 4. Anxiety/depression. Recommendations: * Continue IV antibiotics including ceftazidime and azithromycin. * Follow-up sputum culture. * Continue nebs/TRC. * Keep oxygen sats around 92%. * Continue IV steroids - however the medication orders need to be clarified as it is written for both every 8 and every 12. * Continue Symbicort and Spiriva. * Continue Mucinex. * Lovenox for DVT prophylaxis. * Continue all supportive care.
[2016-08-24 14:15] VITALS: BP 120/60
[2016-08-24 22:29] VITALS: BP 112/78
[2016-08-25 07:34] VITALS: BP 120/70
--- NOTE | 2016-08-25 08:40 | PN- Housestaff ---
FLYNN CORTÉS,[facility] 08/25/16 0840: Subjective Follow-up For: Acute hypoxic respiratory failure Multifocal pneumonia COPD exacerbation. Subjective: Patient seen and examined this morning. He was sitting in his bed in no acute distress. He remains on 7 L of oxygen satting high 90s. Remains afebrile,, vitals remained within normal limits. No other complaints. Review of Systems Constitutional: Reports: see HPI. Objective Last 24 Hrs of Vital Signs/I&O Vital Signs Date Time Temp Pulse Resp B/P Pulse O2 O2 Flow FiO2 Ox Delivery Rate 08/25 0734 97.6 74 18 120/70 93 Nasal 7.0L Cannula 08/25 0000 96 Nasal 7.0L Cannula 08/24 2229 98.0 82 20 112/78 96 08/24 1600 Nasal 7.0L Cannula 08/24 1415 97.5 89 20 120/60 93 Nasal 7.0L Cannula 08/24 1218 94 Nasal 7.0L Cannula Intake & Output 08/25 1600 08/25 0800 08/25 0000 Intake Total 540 980 Output Total Balance 540 980 Intake, IV 300 500 Intake, Oral 240 480 Number 0 Bowel Movements Physical Exam General Appearance: Alert, Oriented X3, Cooperative, No Acute Distress Cardiovascular: Regular Rate, Normal S1, Normal S2, No Murmurs Lungs: Clear to Auscultation, Normal Air Movement Abdomen: Normal Bowel Sounds, Soft, No Tenderness Extremities: No Clubbing, No Cyanosis, No Edema Current Medications: Current Medications Sig/Rosetta Start time Last Medication Dose Route Stop Time Status Admin Acetaminophen 325 MG Q6P PRN 08/22 2315 AC PO Albuterol Sulfate 2 PUF Q6P PRN 08/23 1400 AC INH Budesonide/ 2 PUF TID 08/23 1000 AC 08/25 Formoterol Fumarate INH 0852 Ceftazidime 1,000 MG IQ8 08/23 0800 AC 08/25 IV 0848 Cholecalciferol 1,000 IU DAILY 08/23 1000 AC 08/24 PO 1121 Enoxaparin Sodium 40 MG DAILY 08/23 1000 AC 08/25 SC 0851 Guaifenesin 600 MG Q12 08/23 0222 AC 08/25 PO 0852 Methylprednisolone 40 MG Q12 08/26 1000 AC IV Methylprednisolone 40 MG Q8 08/22 2330 DC 08/25 IV 08/25 2300 0632 Naproxen 250 MG BID PRN 08/22 2315 AC 08/24 PO 2325 Omeprazole 40 MG DAILY AC 08/23 0700 AC 08/25 PO 0632 Tiotropium [place] 1 PUF DAILY 08/23 1000 AC 08/25 INH 0847 Vancomycin HCl 1,500 MG Q12 08/23 1000 AC 08/24 Sodium Chloride 500 ML IV 2157 Last 24 Hrs of Lab/Regan Results Last 24 Hrs of Labs/Mics: Laboratory Tests 08/25/16 0715: CBC w Diff Pending, WBC Pending, RBC Pending, Hgb Pending, Hct Pending, MCV Pending, MCH Pending, RDW Pending, Plt Count Pending, MPV Pending, Gran % Pending, Lymphocytes % Pending, Monocytes % Pending, Eosinophils % Pending, Basophils % Pending, Absolute Granulocytes Pending, Absolute Lymphocytes Pending , Absolute Monocytes Pending, Absolute Eosinophils Pending, Absolute Basophils Pending, PUBS MCHC Pending Assessment/Plan Assessment: 70-year-old male with past medical history of non-small cell lung cancer status post radiation at [place] 3 months ago, 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 His acute hypoxic respiratory failure most likely 2/2 HCAP with a component of advanced emphysema and radiation pneumonitis. # Acute hypoxic respiratory failure Patient desaturated to 79% in the ED, requiring high flow oxygen after which the saturations came above 90%. This is most likely 2/2 HCAP and advanced COPD/ emphysema. It is also likely that radiation pneumonitis has developed following his XRT 3 months ago. Patient received 1 dose of IV ceftriaxone and azithromycin in the ED. * Adequate oxygen support to maintain saturations above 92% * TRC nebulizer treatment [id number] * Steroids, currently solumedrol 40mg BID * Antimicrobial therapy as discussed below * Follow pulmonary recs # Multifocal pneumonia * Cont IV vancomycin and ceftazidime to coverfor MRSA/Gram negative septicemia * Discontinue vanco if MRSA screening of the nare is negative * Cont to monitor for signs of SIRS * NGTD blood/sputum cultures * Urine strep and Legionella negative. # Advanced COPD/emphysema * IV Solu-Medrol 40mg Q8H * Continue Symbicort, Spiriva, Ventolin inhalers * [facility] neb treatment # Lung cancer Patient has a presumably independen primary NSCLCs of the right upper lobe and right lower lobe, cT2aN0 and cT1bN0, respectively. S/p 5 cylcles of XRT (last session 3 months ago). Chest CT on 08/01/15 showed a spiculated 3 x 1.4 cm RUL lesion, and a 1.7 x 1.7cm RLL lesion. PET showed uptake in both (SUVm 3.7 in the RUL lesion, and SUVm 5.7 in the RLL lesion), with no adenopathy or distant disease noted. CT guided biopsy of the RUL nodule was non-diagnostic. A repeat Chest CT showed radiographic progression of the 2 lesions. A mediastinoscopy on 01/02/16 was negative at station 4R. Despite lack of path confirmation, the two nodules were considered highly suspicious for lung cancers given his smoking history and the radiographic characteristics and progression on serial scans. With negative mediastinal staging, the RUL and RLL lesions were presumed to be independent stage I lung cancers, and therefore the patient underwent SBRT radiosurgery under the direction of Dr. Anat Hurtado. * Per Dr. Yadav, no interventions recommended from oncology standpoint at this point. Patient is not a candidate for chemotherapy. Radiation is currently not indicated as patient may be actively suffering from radiation pneumonitis. # GERD # Mild pain pathway # Heart healthy diet # DNR/I Problem List: 1. COPD exacerbation 2. Lung cancer 3. Dyspnea Pain Ratin Pain Location: none Pain Goal: Remain pain free Pain Plan: Tylenol Tomorrow's Labs & Rationales: CBC for WBC monitor ANA ROMO MD 08/25/16 1015: Attending MD Review Statement Attending Statement Attending MD Statement: examined this patient, discuss w/resident/PA/SAP HANA DEVELOPER, agreed w/resident/PA/SAP HANA DEVELOPER, reviewed EMR data (avail), discussed with nursing, amended to note Attending Assessment/Plan: Patient seen and examined. Resting comfortably. He reports no worsening of his symptoms. He reports been able to ambulate with less shortness of breath compared to his state prior to admission. He however does continue to complain of dyspnea with exertion. Stayed afebrile and hemodynamically stable. He is on 7 L of oxygen and maintaining saturation of about 93%. On examination he has adequate entry bilaterally with no significant added sounds. He has no jugular venous distention. He has no peripheral edema. He does appear to be in acute distress. He was jovial this morning. Recommendations: -Solu-Medrol 40 mg IV twice daily today. We'll reevaluate in the morning and consider transitioning to oral prednisone. -Continue current antibiotic regimen. Follow-up with the pulmonary service regarding transitioning him to oral antibiotics. -Patient scheduled to have family meeting with his motor vehicle escort driver Jens Lowery MD on Friday to further discuss prognosis and goals of care. -Due to mobilize patient as tolerated. -Hold off repeat labs tomorrow unless there is a change in clinical status.
[2016-08-25 08:57] LABS: ABSOLUTE BASOPHIL COUNT 0 /CUMM (0.0-0.2); ABSOLUTE EOSINOPHIL COUNT 0 /CUMM (0.0-0.7); ABSOLUTE MONOCYTE COUNT 0.7 /CUMM (0.10-0.60); BASOPHIL % 0 % (0.0-2.0); EOSINOPHIL % 0.1 % (0-5); GRANULOCYTE % 84.9 % (42.2-75.2); HEMATOCRIT 44.2 % (42-52); MEAN CORPUSCULAR HGB CONC 33.6 G/DL (33.0-37.0); MEAN CORPUSCULAR VOLUME 89.1 FL (80.0-94.0); MEAN PLATELET VOLUME 7.4 FL (7.4-10.4); PLATELET COUNT 239 /CUMM (130-400); RBC DISTRIBUTION WIDTH 17.5 % (11.5-14.5); RED BLOOD CELL CT 4.96 /CUMM (4.70-6.10)
[2016-08-25 10:48] LABS: WHITE BLOOD CELL COUNT 11.8 /CUMM (4.8-10.8)
--- NOTE | 2016-08-25 12:45 | PN- Pulmonary ---
Subjective HPI/Critical Care Issues: The patient is awake and alert. He reports slowly feeling better. He has ongoing shortness of breath at rest. He denies any new complaints today. Objective Current Medications: Current Medications Sig/Rosetta Start time Last Medication Dose Route Stop Time Status Admin Acetaminophen 325 MG Q6P PRN 08/22 2315 AC PO Albuterol Sulfate 2 PUF Q6P PRN 08/23 1400 AC INH Budesonide/ 2 PUF TID 08/23 1000 AC 08/25 Formoterol Fumarate INH 0852 Ceftazidime 1,000 MG IQ8 08/23 0800 AC 08/25 IV 0848 Cholecalciferol 1,000 IU DAILY 08/23 1000 AC 08/25 PO 1125 Enoxaparin Sodium 40 MG DAILY 08/23 1000 AC 08/25 SC 0851 Guaifenesin 600 MG Q12 08/23 0222 AC 08/25 PO 0852 Methylprednisolone 40 MG Q12 08/26 1000 AC IV Methylprednisolone 40 MG Q8 08/22 2330 DC 08/25 IV 08/25 2300 0632 Naproxen 250 MG BID PRN 08/22 2315 AC 08/24 PO 2325 Omeprazole 40 MG DAILY AC 08/23 0700 AC 08/25 PO 0632 Tiotropium [place] 1 PUF DAILY 08/23 1000 AC 08/25 INH 0847 Vancomycin HCl 1,500 MG Q12 08/23 1000 AC 08/25 Sodium Chloride 500 ML IV 1133 Vital Signs & I&O Last 24 Hrs of Vitals and I&O: Vital Signs Date Time Temp Pulse Resp B/P Pulse O2 O2 Flow FiO2 Ox Delivery Rate 08/25 0734 97.6 74 18 120/70 93 Nasal 7.0L Cannula 08/25 0000 96 Nasal 7.0L Cannula 08/24 2229 98.0 82 20 112/78 96 08/24 1600 Nasal 7.0L Cannula 08/24 1415 97.5 89 20 120/60 93 Nasal 7.0L Cannula Intake & Output 08/25 1600 08/25 0800 08/25 0000 Intake Total 540 980 Output Total Balance 540 980 Intake, IV 300 500 Intake, Oral 240 480 Number 0 Bowel Movements Exam General Appearance: no apparent distress, alert, awake, comfortable Head: atraumatic, normal appearance Neck: supple Respiratory: Faint bilateral crackles and scattered rhonchi Cardiovascular: regular rate/rhythm Abdomen: normal bowel sounds, soft, non-tender Extremities: no edema Skin: intact, normal color, warm/dry Results Last 24 Hrs of Lab Results: Laboratory Tests 08/25/16 0715: CBC w Diff NO MAN DIFF REQ, RBC 4.96, MCV 89.1, MCH 30.0, RDW 17.5 H, MPV 7.4, Gran % 84.9 H, Lymphocytes % 8.9 L, Monocytes % 6.1, Eosinophils % 0.1, Basophils % 0 L, Absolute Granulocytes 10.0 H, Absolute Lymphocytes 1.0 L, Absolute Monocytes 0.7 H, Absolute Eosinophils 0, Absolute Basophils 0, PUBS MCHC 33.6 Impression/Plan Impression/Plan Impression/Plan: 1. Acute hypoxemic rest or failure related to very severe COPD with worsening lung cancer versus radiation pneumonitis. A superimposed superinfection needs to be excluded as well. 2. 2 separate lung cancers in the past, treated with radiation. 3. Hiatal hernia with superimposed GERD. 4. Anxiety/depression. Recommendations: * Continue IV antibiotics including ceftazidime and azithromycin. * Follow-up sputum culture. * Continue nebs/TRC. * Keep oxygen sats around 92%. * Continue IV steroids - q 12 hours. * Continue Symbicort and Spiriva. * Continue Mucinex. * Lovenox for DVT prophylaxis. * Continue all supportive care.
[2016-08-25 15:22] VITALS: BP 114/68
[2016-08-25 22:45] VITALS: BP 104/60
[2016-08-26 05:59] VITALS: BP 98/70
[2016-08-26 07:44] LABS: ABSOLUTE BASOPHIL COUNT 0 /CUMM (0.0-0.2); ABSOLUTE EOSINOPHIL COUNT 0 /CUMM (0.0-0.7); ABSOLUTE GRANULOCYTE CT 8.4 /CUMM (1.4-6.5); ABSOLUTE MONOCYTE COUNT 0.8 /CUMM (0.10-0.60); BASOPHIL % 0 % (0.0-2.0); EOSINOPHIL % 0 % (0-5); GRANULOCYTE % 82.5 % (42.2-75.2); HEMATOCRIT 42.6 % (42-52); MEAN CORPUSCULAR HGB 29.9 PG (27.0-31.0); MEAN CORPUSCULAR VOLUME 87.9 FL (80.0-94.0); PLATELET COUNT 232 /CUMM (130-400); RBC DISTRIBUTION WIDTH 17.2 % (11.5-14.5); RED BLOOD CELL CT 4.85 /CUMM (4.70-6.10); WHITE BLOOD CELL COUNT 10.1 /CUMM (4.8-10.8)
--- NOTE | 2016-08-26 08:21 | PN- Housestaff ---
PATRICIO CORTÉS,MARGY 08/26/16 0821: Subjective Follow-up For: acute hypoxic resp failure due to hcap Subjective: pt was seen this morning, he is in good spirit. reports feeling much better. o2 requirement currently 3 L at rest. iv solumedrol changed to 40 mg prednisone. As per Dr. Newton, we will keep vanco and ceftaz for now and will check with Dr. Lowery tomorrow about changing to PO abx. Review of Systems Constitutional: Denies: chills, fever. EENTM: Denies: visual changes. Cardiovascular: Denies: chest pain, orthopena. Respiratory: Reports: short of breath. Denies: cough, sputum production, wheezing. Gastrointestinal: Denies: abdominal pain, bloating, constipation, diarrhea. Objective Last 24 Hrs of Vital Signs/I&O Vital Signs Date Time Temp Pulse Resp B/P Pulse O2 O2 Flow FiO2 Ox Delivery Rate 08/26 0800 Nasal 5.0L Cannula 08/26 0559 97.7 69 20 98/70 93 Nasal 6.0L Cannula 08/26 0000 Nasal 5.0L Cannula 08/25 2245 98.3 76 20 104/60 94 Nasal 6.0L Cannula 08/25 2142 95 Nasal 7.0L Cannula 08/25 1600 95 Nasal 7.0L Cannula 08/25 1522 98.7 79 20 114/68 95 Intake & Output 08/26 1600 08/26 0800 08/26 0000 Intake Total 490 500 Output Total Balance 490 500 Intake, IV 130 500 Intake, Oral 360 Physical Exam General Appearance: Alert, Oriented X3, Cooperative, No Acute Distress Skin: No Significant Lesion HEENT: Atraumatic, PERRLA Neck: Supple Lymphatic: Axillary nl, Cervical nl Lungs: Clear to Auscultation, Normal Air Movement Abdomen: Normal Bowel Sounds, Soft, No Tenderness Neurological: Normal Speech Extremities: No Edema, wearing compressing stockings Current Medications: Current Medications Sig/Rosetta Start time Last Medication Dose Route Stop Time Status Admin Acetaminophen 325 MG Q6P PRN 08/22 2315 AC PO Albuterol Sulfate 2 PUF Q6P PRN 08/23 1400 AC INH Budesonide/ 2 PUF TID 08/23 1000 AC 08/26 Formoterol Fumarate INH 0958 Ceftazidime 1,000 MG IQ8 08/23 0800 AC 08/26 IV 0828 Cholecalciferol 1,000 IU DAILY 08/23 1000 AC 08/26 PO 0959 Enoxaparin Sodium 40 MG DAILY 08/23 1000 AC 08/26 SC 1000 Guaifenesin 600 MG Q12 08/23 0222 AC 08/26 PO 0959 Melatonin 5 MG AT BEDTIME 08/26 2200 AC 08/25 PO 2359 Melatonin 5 MG .STK-MED ONE 08/25 2256 DC PO 08/25 2257 Melatonin 3 MG .STK-MED ONE 08/25 2254 DC PO 08/25 2255 Methylprednisolone 40 MG Q12 08/26 1000 DC IV Methylprednisolone 40 MG Q12 08/25 1430 DC 08/26 IV 0959 Naproxen 250 MG BID PRN 08/22 2315 AC 08/24 PO 2325 Omeprazole 40 MG DAILY AC 08/23 0700 AC 08/26 PO 0644 Prednisone 40 MG DAILY 08/27 1000 AC PO Tiotropium [place] 1 PUF DAILY 08/23 1000 AC 08/26 INH 0959 Vancomycin HCl 1,500 MG Q12 08/23 1000 AC 08/26 Sodium Chloride 500 ML IV 1019 Last 24 Hrs of Lab/Regan Results Last 24 Hrs of Labs/Mics: Laboratory Tests 08/26/16 0600: CBC w Diff NO MAN DIFF REQ, RBC 4.85, MCV 87.9, MCH 29.9, RDW 17.2 H, MPV 7.0 L, Gran % 82.5 H, Lymphocytes % 9.5 L, Monocytes % 8.0, Eosinophils % 0, Basophils % 0 L, Absolute Granulocytes 8.4 H, Absolute Lymphocytes 1.0 L, Absolute Monocytes 0.8 H, Absolute Eosinophils 0, Absolute Basophils 0, PUBS MCHC 34.0 Assessment/Plan Assessment: 70-year-old male with past medical history of non-small cell lung cancer status post radiation at [place] 3 months ago, 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 His acute hypoxic respiratory failure most likely 2/2 HCAP with a component of advanced emphysema and radiation pneumonitis. # Acute hypoxic respiratory failure Patient desaturated to 79% in the ED, requiring high flow oxygen after which the saturations came above 90%. This is most likely 2/2 HCAP and advanced COPD/ emphysema. It is also likely that radiation pneumonitis has developed following his XRT 3 months ago. Patient received 1 dose of IV ceftriaxone and azithromycin in the ED. * Adequate oxygen support to maintain saturations above 92% * TRC nebulizer treatment [id number] * Steroids, currently solumedrol 40mg BID --> switched to prednisone 40 daily * Antimicrobial therapy as discussed below * Follow pulmonary recs * Continue vanc and ceftaz pending Dr. Lowery's recc tomorrow # Multifocal pneumonia * Cont IV vancomycin and ceftazidime to coverfor MRSA/Gram negative septicemia * Discontinue vanco if MRSA screening of the nare is negative * Cont to monitor for signs of SIRS * NGTD blood/sputum cultures * Urine strep and Legionella negative. # Advanced COPD/emphysema * IV Solu-Medrol 40mg Q8H * Continue Symbicort, Spiriva, Ventolin inhalers * TRC neb treatment # Lung cancer Patient has a presumably independen primary NSCLCs of the right upper lobe and right lower lobe, cT2aN0 and cT1bN0, respectively. S/p 5 cylcles of XRT (last session 3 months ago). Chest CT on 08/01/15 showed a spiculated 3 x 1.4 cm RUL lesion, and a 1.7 x 1.7cm RLL lesion. PET showed uptake in both (SUVm 3.7 in the RUL lesion, and SUVm 5.7 in the RLL lesion), with no adenopathy or distant disease noted. CT guided biopsy of the RUL nodule was non-diagnostic. A repeat Chest CT showed radiographic progression of the 2 lesions. A mediastinoscopy on 01/02/16 was negative at station 4R. Despite lack of path confirmation, the two nodules were considered highly suspicious for lung cancers given his smoking history and the radiographic characteristics and progression on serial scans. With negative mediastinal staging, the RUL and RLL lesions were presumed to be independent stage I lung cancers, and therefore the patient underwent SBRT radiosurgery under the direction of Dr. Anat Hurtado. * Per Dr. Yadav, no interventions recommended from oncology standpoint at this point. Patient is not a candidate for chemotherapy. Radiation is currently not indicated as patient may be actively suffering from radiation pneumonitis. # GERD # Mild pain pathway # Heart healthy diet # DNR/I Problem List: 1. Acute respiratory failure Pain Ratin Pain Location: none Pain Goal: Remain pain free Pain Plan: mild pp Tomorrow's Labs & Rationales: none DVT/Prophylaxis: mechanical, pharmacological ANA NEWTON MD 08/26/16 1148: Attending MD Review Statement Attending Statement Attending MD Statement: examined this patient, discuss w/resident/PA/COATING MACHINE OPERATOR, agreed w/resident/PA/COATING MACHINE OPERATOR, reviewed EMR data (avail), discussed with nursing, discussed with case mgmt, amended to note Attending Assessment/Plan: Patient seen and examined. Resting comfortably and not in acute distress. No issues overnight. Reports being comfortable at rest. He reports less shortness of breath when ambulating. He remains afebrile and hemodynamically stable. Oxygen requirement has been tapered down to 5 L. On examination he has adequate entry without significant added sounds. He has no evidence of volume overload on exam. Recommendations: -Discontinue Solu-Medrol and begin patient on prednisone 40 mg daily. -Follow-up with the pulmonary service regarding transition patient to oral antibiotic therapy and regimen. -Patient scheduled to have a meeting with his jde developer Jens Lowery MD tomorrow to discuss further goals of care. -Mobilize patient as tolerated. -No need to repeat serum chemistry and CBC tomorrow unless there is a change in the patients clinical status.
--- NOTE | 2016-08-26 09:38 | PN- Pulmonary ---
Subjective HPI/Critical Care Issues: The patient is awake and alert. He reports feeling significantly improved. His oxygenation and continues to improve noting that he is now on 6 L nasal cannula. He offers no new complaints today. Objective Current Medications: Current Medications Sig/Rosetta Start time Last Medication Dose Route Stop Time Status Admin Acetaminophen 325 MG Q6P PRN 08/22 2315 AC PO Albuterol Sulfate 2 PUF Q6P PRN 08/23 1400 AC INH Budesonide/ 2 PUF TID 08/23 1000 AC 08/25 Formoterol Fumarate INH 205 Ceftazidime 1,000 MG IQ8 08/23 0800 AC 08/26 IV 0828 Cholecalciferol 1,000 IU DAILY 08/23 1000 AC 08/25 PO 1125 Enoxaparin Sodium 40 MG DAILY 08/23 1000 AC 08/25 SC 0851 Guaifenesin 600 MG Q12 08/23 0222 AC 08/25 PO 2058 Melatonin 5 MG AT BEDTIME 08/26 2200 AC 08/25 PO 2359 Melatonin 5 MG .STK-MED ONE 08/25 2256 DC PO 08/25 2257 Melatonin 3 MG .STK-MED ONE 08/25 2254 DC PO 08/25 2255 Methylprednisolone 40 MG Q12 08/26 1000 DC IV Methylprednisolone 40 MG Q12 08/25 1430 AC 08/25 IV 2058 Methylprednisolone 40 MG Q8 08/22 2330 DC 08/25 IV 08/25 2300 0632 Naproxen 250 MG BID PRN 08/22 2315 AC 08/24 PO 2325 Omeprazole 40 MG DAILY AC 08/23 0700 AC 08/26 PO 0644 Tiotropium [place] 1 PUF DAILY 08/23 1000 AC 08/25 INH 0847 Vancomycin HCl 1,500 MG Q12 08/23 1000 AC 08/25 Sodium Chloride 500 ML IV 2059 Vital Signs & I&O Last 24 Hrs of Vitals and I&O: Vital Signs Date Time Temp Pulse Resp B/P Pulse O2 O2 Flow FiO2 Ox Delivery Rate 08/26 0800 Nasal 5.0L Cannula 08/26 0559 97.7 69 20 98/70 93 Nasal 6.0L Cannula 08/26 0000 Nasal 5.0L Cannula 08/25 2245 98.3 76 20 104/60 94 Nasal 6.0L Cannula 08/25 2142 95 Nasal 7.0L Cannula 08/25 1600 95 Nasal 7.0L Cannula 08/25 1522 98.7 79 20 114/68 95 Intake & Output 08/26 1600 08/26 0800 08/26 0000 Intake Total 490 500 Output Total Balance 490 500 Intake, IV 130 500 Intake, Oral 360 Exam General Appearance: no apparent distress, alert, awake, comfortable Head: atraumatic, normal appearance Neck: supple Respiratory: Faint bilateral crackles and scattered rhonchi Cardiovascular: regular rate/rhythm Abdomen: normal bowel sounds, soft, non-tender Extremities: no edema Skin: intact, normal color, warm/dry Impression/Plan Impression/Plan Impression/Plan: 1. Acute hypoxemic respiratory failure related to very severe COPD with worsening lung cancer versus radiation pneumonitis. A superimposed superinfection needs to be excluded as well. 2. 2 separate lung cancers in the past, treated with radiation. 3. Hiatal hernia with superimposed GERD. 4. Anxiety/depression. Recommendations: * Agree with changing over to oral antibiotics. * Discontinue Solu-Medrol and start prednisone 40 mg daily.. * Continue nebs/TRC. * Keep oxygen sats around 92%. * Continue Symbicort and Spiriva. * Continue Mucinex. * Lovenox for DVT prophylaxis. * Dr. Lowery will resume follow-up care. * Continue all supportive care.
[2016-08-26 14:13] VITALS: BP 145/70
[2016-08-26 22:51] VITALS: BP 110/70
--- NOTE | 2016-08-27 06:07 | PN- Housestaff ---
CRISTINA CORTÉS,GRISELDA 08/27/16 0606: Subjective Follow-up For: Acute hypoxic respiratory failure Multifocal pneumonia COPD exacerbation Subjective: Patient seen and examined at bedside. Patient states that today is "the best he has felt in months." Patient endorses mild shortness of breath on exertion, much improved. He would really like to go home but can wait one more night. Denies any chest pain, palpitations, f/c/n/v/c/d. Review of Systems Constitutional: Reports: see HPI. Objective Last 24 Hrs of Vital Signs/I&O Vital Signs Date Time Temp Pulse Resp B/P Pulse O2 O2 Flow FiO2 Ox Delivery Rate 08/27 0738 98.5 99 20 102/60 91 Nasal 5.0L Cannula 08/27 0000 93 Nasal 5.0L Cannula 08/26 2251 98.5 80 20 110/70 93 Nasal 5.0L Cannula 08/26 1600 Nasal 5.0L Cannula 08/26 1413 97.8 101 20 145/70 91 Intake & Output 08/27 1600 08/27 0800 08/27 0000 Intake Total 200 400 Output Total Balance 200 400 Intake, Oral 200 400 Physical Exam General Appearance: Alert, Oriented X3, Cooperative, No Acute Distress Other Physical Findings: Skin No Rashes HEENT Atraumatic, PERRLA, EOMI, Mucous Membr. moist/pink Neck No JVD Cardiovascular Regular Rate, Normal S1, Normal S2, No Murmurs Lungs CTA, normal breath sounds Abdomen Normal Bowel Sounds, Soft, No Tenderness Neurological Normal Speech Extremities No Cyanosis, No Edema, clubbing on all fingers Current Medications: Current Medications Sig/Rosetta Start time Last Medication Dose Route Stop Time Status Admin Acetaminophen 325 MG Q6P PRN 08/22 2315 AC PO Albuterol Sulfate 2 PUF Q6P PRN 08/23 1400 AC INH Budesonide/ 2 PUF TID 08/23 1000 AC 08/27 Formoterol Fumarate INH 1020 Ceftazidime 1,000 MG IQ8 08/23 0800 DC 08/27 IV 0834 Cholecalciferol 1,000 IU DAILY 08/23 1000 AC 08/27 PO 1017 Enoxaparin Sodium 40 MG DAILY 08/23 1000 AC 08/27 SC 1019 Guaifenesin 600 MG Q12 08/23 0222 AC 08/27 PO 1019 Melatonin 5 MG AT BEDTIME 08/26 2200 AC 08/26 PO 2120 Methylprednisolone 40 MG Q12 08/25 1430 DC 08/26 IV 0959 Naproxen 250 MG BID PRN 08/22 2315 AC 08/24 PO 2325 Omeprazole 40 MG DAILY AC 08/23 0700 AC 08/27 PO 0540 Prednisone 60 MG DAILY 08/28 1000 AC PO Prednisone 40 MG DAILY 08/27 1000 DC PO Tiotropium [place] 1 PUF DAILY 08/23 1000 AC 08/27 INH 1019 Vancomycin HCl 1,500 MG Q12 08/23 1000 DC 08/26 Sodium Chloride 500 ML IV 212 Assessment/Plan Assessment: 70-year-old male with past medical history of non-small cell lung cancer status post radiation at [place] 3 months ago, 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 His acute hypoxic respiratory failure most likely 2/2 HCAP with a component of advanced emphysema and radiation pneumonitis. # Acute hypoxic respiratory failure Patient desaturated to 79% in the ED, requiring high flow oxygen after which the saturations came above 90%. This is most likely 2/2 HCAP and advanced COPD/ emphysema. It is also likely that radiation pneumonitis has developed following his XRT 3 months ago. Patient received 1 dose of IV ceftriaxone and azithromycin in the ED. * Adequate oxygen support to maintain saturations above 92% * TRC nebulizer treatment [id number] * Cont prednisone at increased dose of 60mg PO daily per pulm rec * Antimicrobial therapy as discussed below * Cont to appreciate pulmonary recs # Healthcare Associated Pneumonia * Cont IV vancomycin and ceftazidime, switch to Moxifloxacin tomorrow per pulm rec * Cont to monitor for signs of SIRS * Blood/sputum cultures - NGTD # Advanced COPD/emphysema * Cont antibiotics and steroid as per above-mentioned plans * Continue Symbicort, Spiriva, Ventolin inhalers * TRC neb treatment # Lung cancer Patient has a presumably independen primary NSCLCs of the right upper lobe and right lower lobe, cT2aN0 and cT1bN0, respectively. S/p 5 cylcles of XRT (last session 3 months ago). Chest CT on 08/01/15 showed a spiculated 3 x 1.4 cm RUL lesion, and a 1.7 x 1.7cm RLL lesion. PET showed uptake in both (SUVm 3.7 in the RUL lesion, and SUVm 5.7 in the RLL lesion), with no adenopathy or distant disease noted. CT guided biopsy of the RUL nodule was non-diagnostic. A repeat Chest CT showed radiographic progression of the 2 lesions. A mediastinoscopy on 01/02/16 was negative at station 4R. Despite lack of path confirmation, the two nodules were considered highly suspicious for lung cancers given his smoking history and the radiographic characteristics and progression on serial scans. With negative mediastinal staging, the RUL and RLL lesions were presumed to be independent stage I lung cancers, and therefore the patient underwent SBRT radiosurgery under the direction of Dr. Cristina Hurtado. * Per Dr. Yadav, no interventions recommended from oncology standpoint at this point. Patient is not a candidate for chemotherapy. Radiation is currently not indicated as patient may be actively suffering from radiation pneumonitis. # GERD # Mild pain pathway # Heart healthy diet # DNR/I Problem List: 1. Protrusion of intervertebral disc of lumbosacral region 2. Emphysema lung 3. Lung nodules 4. Hypoxemia 5. Lung cancer 6. Acute respiratory failure 7. COPD exacerbation 8. Radiation pneumonitis 9. Dyspnea Pain Ratin Pain Location: 0 Pain Goal: Remain pain free Pain Plan: Mild pain pathway Tomorrow's Labs & Rationales: CBC to monitor for infection ANA ROMO MD 08/27/16 1045: Attending MD Review Statement Attending Statement Attending MD Statement: examined this patient, discuss w/resident/PA/STONE HAND, agreed w/resident/PA/STONE HAND, reviewed EMR data (avail), discussed with nursing, discussed with case mgmt, amended to note Attending Assessment/Plan: Patient seen and examined. He is in very good spirits today. No new complaints today. Reports mild cough. Denies shortness of breath at rest. He reports that he is able to perform mild activities with less shortness of breath. He is remained hemodynamically stable. Maintaining saturation on 5 L of oxygen. On examination he has mild crepitus in the left lung base. Case discussed with his seismographer Jens Lowery MD. Recommendations: -Increase prednisone to 60 mg orally daily as recommended by his seismographer. -Transition to moxifloxacin for several more days of antibiotic therapy tomorrow. -Anticipate patient for discharge home tomorrow. -Follow-up with case management to set up home visiting nurse services. -Follow-up with case management to set up home visiting nurse services.
[2016-08-27 07:38] VITALS: BP 102/60
--- NOTE | 2016-08-27 13:00 | PN- Pulmonary ---
Subjective HPI/Critical Care Issues: Patient seen and examined at bedside. Patient states that today is "the best he has felt in months." Patient endorses mild shortness of breath on exertion, much improved. He would really like to go home but can wait one more night. Denies any chest pain, palpitations, f/c/n/v/c/d. Review of Systems Constitutional: Reports: see HPI. Objective Current Medications: Current Medications Sig/Rosetta Start time Last Medication Dose Route Stop Time Status Admin Acetaminophen 325 MG Q6P PRN 08/22 2315 AC PO Albuterol Sulfate 2 PUF Q6P PRN 08/23 1400 AC INH Budesonide/ 2 PUF TID 08/23 1000 AC 08/27 Formoterol Fumarate INH 1020 Ceftazidime 1,000 MG IQ8 08/23 0800 DC 08/27 IV 0834 Cholecalciferol 1,000 IU DAILY 08/23 1000 AC 08/27 PO 1017 Enoxaparin Sodium 40 MG DAILY 08/23 1000 AC 08/27 SC 1019 Guaifenesin 600 MG Q12 08/23 0222 AC 08/27 PO 1019 Melatonin 5 MG AT BEDTIME 08/26 2200 AC 08/26 PO 2120 Naproxen 250 MG BID PRN 08/22 2315 AC 08/24 PO 2325 Omeprazole 40 MG DAILY AC 08/23 0700 AC 08/27 PO 0540 Prednisone 60 MG DAILY 08/28 1000 AC PO Prednisone 40 MG DAILY 08/27 1000 DC PO Tiotropium [place] 1 PUF DAILY 08/23 1000 AC 08/27 INH 1019 Vancomycin HCl 1,500 MG Q12 08/23 1000 DC 08/26 Sodium Chloride 500 ML IV 2121 Vital Signs & I&O Last 24 Hrs of Vitals and I&O: Vital Signs Date Time Temp Pulse Resp B/P Pulse O2 O2 Flow FiO2 Ox Delivery Rate 08/27 0738 98.5 99 20 102/60 91 Nasal 5.0L Cannula 08/27 0000 93 Nasal 5.0L Cannula 08/26 2251 98.5 80 20 110/70 93 Nasal 5.0L Cannula 08/26 1600 Nasal 5.0L Cannula 08/26 1413 97.8 101 20 145/70 91 Intake & Output 08/27 1600 08/27 0800 08/27 0000 Intake Total 200 400 Output Total Balance 200 400 Intake, Oral 200 400 Impression/Plan Impression/Plan Impression/Plan: CT CHEST WITH IVC IMPRESSION: 1. No evidence of pulmonary embolism. 2. Chronic interstitial and emphysematous changes of lung. There is developing confluent airspace disease in the right lung that is worsening since prior exams. Finding of multifocal pneumonia. Patient does have history of lung cancer. Known underlying malignancy cannot be entirely excluded. There is associated mediastinal lymphadenopathy. VTE: Negative. DICTATED BY: HAILY CAMP MD DATE/TIME DICTATED:08/22/162131 Physical Exam General Appearance Alert, Oriented X3, Cooperative, Moderate Distress Skin No Rashes HEENT Atraumatic, PERRLA, EOMI, Mucous Membr. moist/pink Neck No JVD Cardiovascular Regular Rate, Normal S1, Normal S2, No Murmurs Lungs mild wheezing on the right chest from the anterior side Abdomen Normal Bowel Sounds, Soft, No Tenderness Neurological Normal Speech Extremities No Cyanosis, No Edema, clubbing on all fingers This is a 70-year-old gentleman with very advanced emphysema with previous clinical diagnosis of right upper lobe and right lower lobe 2 separate primary lung cancers T2 probable N0 and T1 probable N0 with previous negative biopsy including negative biopsy for 4R lymph node with significant PET abnormality for which she has had radiation therapy at [facility] now subsequently has worsening overall performance status with significant shortness of breath and CT scan suggestive of worsening pulmonary infiltrates with air bronchogram in the anterior right upper lobe and in the posterior right lower lobe which seems to be much worse since May 2016. His issues include * Resolving Acute hypoxemic respiratory failure related to very severe COPD now with worsening lung cancer in the right side clinically versus radiation pneumonitis. So far has shown improvement and Bacterial pneumonitis seems less likely however it cannot be ruled out * Use had worsening mediastinal lymphadenopathy suggestive of tumor progression vs reactive lymphadenopathy with previous LN biopsy being neg * No clinical evidence suggestive of invasive Aspergillus her PCP etc. however that may need to be ruled out if he clinically improves * Severe emphysema with worsening performance status * Recent evidence suggestive of radiation pneumonitis which is still present * Hiatal hernia with GERD * Anxiety/depression. Recommendation * Continue intravenous antibiotics and switch to po moxi for another 7 days * Sputum culture * PO prednisone 60 qd for 2 weeks and then very slow Taper after * Start po vit d 1000 units and one calcium pill daily * Start fosomax 70 mg q weekly after dc * Continue his current bronchodilator * Strict diet while on steroids * Hopefully dc in am.
--- NOTE | 2016-08-27 13:30 | Patient Discharge Instructions ---
Discharge Instructions General Discharge Information You were seen/treated for: Pneumonia Special Instructions: Please follow up with Dr. Lowery (crew dispatcher) and Dr. Lau (primary care) within a week of discharge. Diet Continue normal diet: Yes Activity Full Activity/No Limits: Yes Acute Coronary Syndrome Inclusion Criteria At DC or during hospital stay patient has or had the following: ACS DIAGNOSIS No Discharge Core Measures Meds if any: Prescribed or Continued at Discharge Meds if any: NOT Prescribed or Continued at Discharge Congestive Heart Failure Inclusion Criteria At DC or during hospital stay patient has or had the following: CHF DIAGNOSIS No Discharge Core Measures Meds if any: Prescribed or Continued at Discharge Meds if any: NOT Prescribed or Continued at Discharge Cerebrovascular accident Inclusion Criteria At DC or during hospital stay patient has or had the following: CVA/TIA Diagnosis No Discharge Core Measures Meds if any: Prescribed or Continued at Discharge Meds if any: NOT Prescribed or Continued at Discharge Venous thromboembolism Inclusion Criteria VTE Diagnosis No VTE Type NONE VTE Confirmed by (Test) NONE Discharge Core Measures - Per Current guidelines, there needs to be overlap - treatment for the first 5 days of Warfarin therapy. - If discharged on Warfarin prior to 5 days of - overlap therapy, the patient will need to be - assessed for post discharge needs including - *Post discharge parental anticoagulation - *Warfarin and/or parental anticoagulation education - *Follow up date to check INR post discharge At least 5 days overlap therapy as Inpatient No Meds if any: Prescribed or Continued at Discharge Note: Overlap Therapy is Warfarin and Anticoagulant Meds if any: NOT Prescribed or Continued at Discharge
[2016-08-27] MEDS ORDERED: AVELOX400 M1 PO ×3 (13:31→17:04)
[2016-08-27] MEDS ORDERED: FOSAMAX70 M1 PO ×3 (13:33→13:53)
[2016-08-27] MEDS ORDERED: CALCIUM GLUCONA45 MG PO (13:41)
[2016-08-27] MEDS ORDERED: PREDNISONE20 M1 PO ×3 (13:45→13:53)
[2016-08-27 15:37] VITALS: BP 124/72
[2016-08-27] MEDS ORDERED: AEROCHAMBER WI1 EACH INH (17:03)
[2016-08-27 22:46] VITALS: BP 120/60
--- NOTE | 2016-08-28 06:27 | PN- Housestaff ---
ANAT CORTÉS,LOR 08/28/16 0626: Subjective Follow-up For: Acute hypoxic respiratory failure Multifocal pneumonia COPD exacerbation Subjective: Patient seen and examined at bedside. He reports feeling even better than yesterday. Denies anyh cough and shortness of breath currently. Feels ready for discharge. Denies any chest pain, palpitations, f/c/n/v/c/d. Review of Systems Constitutional: Reports: see HPI. Objective Last 24 Hrs of Vital Signs/I&O Vital Signs Date Time Temp Pulse Resp B/P Pulse O2 O2 Flow FiO2 Ox Delivery Rate 08/28 08 Nasal 5.0L Cannula 08/28 0643 97.7 74 22 120/88 97 Nasal Cannula 08/28 0000 Nasal 5.0L Cannula 08/27 2246 98.1 90 20 120/60 93 Nasal Cannula Intake & Output 08/28 1600 08/28 0800 08/28 0000 Intake Total 100 350 Output Total Balance 100 350 Intake, IV 250 Intake, Oral 100 100 Physical Exam General Appearance: Alert, Oriented X3, Cooperative, No Acute Distress Other Physical Findings: Skin No Rashes HEENT Atraumatic, PERRLA, EOMI, Mucous Membr. moist/pink Neck No JVD Cardiovascular Regular Rate, Normal S1, Normal S2, No Murmurs Lungs CTA, normal breath sounds Abdomen Normal Bowel Sounds, Soft, No Tenderness Neurological Normal Speech Extremities No Cyanosis, No Edema, clubbing on all fingers Assessment/Plan Assessment: 70-year-old male with past medical history of non-small cell lung cancer status post radiation at [place] 3 months ago, 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 His acute hypoxic respiratory failure most likely 2/2 HCAP with a component of advanced emphysema and radiation pneumonitis. # Acute hypoxic respiratory failure Patient desaturated to 79% in the ED, requiring high flow oxygen after which the saturations came above 90%. This is most likely 2/2 HCAP and advanced COPD/ emphysema. It is also likely that radiation pneumonitis has developed following his XRT 3 months ago. Patient received 1 dose of IV ceftriaxone and azithromycin in the ED. * Adequate oxygen support to maintain saturations above 92% * TRC nebulizer treatment [id number] * Discharge on prednisone 60mg PO daily per pulm rec, taper to be completed after discharge * Antimicrobial therapy as discussed below * Cont to appreciate pulmonary recs # Healthcare Associated Pneumonia * Discharge on Moxifloxacin today per pulm rec * Cont to monitor for signs of SIRS * Blood/sputum cultures - NGTD # Advanced COPD/emphysema * Cont antibiotics and steroid as per above-mentioned plans * Continue Symbicort, Spiriva, Ventolin inhalers * TRC neb treatment # Lung cancer Patient has a presumably independen primary NSCLCs of the right upper lobe and right lower lobe, cT2aN0 and cT1bN0, respectively. S/p 5 cylcles of XRT (last session 3 months ago). Chest CT on 08/01/15 showed a spiculated 3 x 1.4 cm RUL lesion, and a 1.7 x 1.7cm RLL lesion. PET showed uptake in both (SUVm 3.7 in the RUL lesion, and SUVm 5.7 in the RLL lesion), with no adenopathy or distant disease noted. CT guided biopsy of the RUL nodule was non-diagnostic. A repeat Chest CT showed radiographic progression of the 2 lesions. A mediastinoscopy on 01/02/16 was negative at station 4R. Despite lack of path confirmation, the two nodules were considered highly suspicious for lung cancers given his smoking history and the radiographic characteristics and progression on serial scans. With negative mediastinal staging, the RUL and RLL lesions were presumed to be independent stage I lung cancers, and therefore the patient underwent SBRT radiosurgery under the direction of Dr. Anat Hurtado. * Per Dr. Yadav, no interventions recommended from oncology standpoint at this point. Patient is not a candidate for chemotherapy. Radiation is currently not indicated as patient may be actively suffering from radiation pneumonitis. # GERD # Mild pain pathway # Heart healthy diet # DNR/I Problem List: 1. Protrusion of intervertebral disc of lumbosacral region 2. Emphysema lung 3. Lung nodules 4. Hypoxemia 5. Lung cancer 6. Acute respiratory failure 7. COPD exacerbation 8. Radiation pneumonitis 9. Dyspnea Pain Ratin Pain Location: 0 Pain Goal: Remain pain free Pain Plan: Mild pathway Tomorrow's Labs & Rationales: None - discharge ANA ROMO MD 08/28/16 1048: Attending MD Review Statement Attending Statement Attending MD Statement: discuss w/resident/PA/PROMOTIONS PRODUCER, agreed w/resident/PA/PROMOTIONS PRODUCER, reviewed EMR data (avail), discussed with nursing, discussed with case mgmt, amended to note Attending Assessment/Plan: Patient seen and examined. Resting comfortably and not in acute distress. No issues overnight. He reports feeling well this morning and is ready to go home today. He has remained afebrile and hemodynamically stable. He has no leukocytosis on his labs. On examination he has mild left lower lobe crepitus. He is maintaining saturation on 5 L of oxygen. 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 Patient will be discharged home today on a prednisone taper. He'll continue moxifloxacin for his pneumonia and follow-up with the pulmonary service as an outpatient.
[2016-08-28 06:43] VITALS: BP 120/88
[2016-08-28 08:12] LABS: ABSOLUTE BASOPHIL COUNT 0 /CUMM (0.0-0.2); ABSOLUTE EOSINOPHIL COUNT 0.1 /CUMM (0.0-0.7); ABSOLUTE GRANULOCYTE CT 6.7 /CUMM (1.4-6.5); ABSOLUTE LYMPH COUNT 1.2 /CUMM (1.2-3.4); ABSOLUTE MONOCYTE COUNT 0.8 /CUMM (0.10-0.60); BASOPHIL % 0.2 % (0.0-2.0); EOSINOPHIL % 0.6 % (0-5); GRANULOCYTE % 76.8 % (42.2-75.2); HEMATOCRIT 45.2 % (42-52); MEAN CORPUSCULAR HGB 30.1 PG (27.0-31.0); MEAN CORPUSCULAR HGB CONC 34.2 G/DL (33.0-37.0); MEAN CORPUSCULAR VOLUME 88.1 FL (80.0-94.0); MEAN PLATELET VOLUME 7.1 FL (7.4-10.4); PLATELET COUNT 234 /CUMM (130-400); RBC DISTRIBUTION WIDTH 17.1 % (11.5-14.5); RED BLOOD CELL CT 5.13 /CUMM (4.70-6.10); WHITE BLOOD CELL COUNT 8.7 /CUMM (4.8-10.8)
--- NOTE | 2016-08-28 12:44 | PN- Pulmonary ---
Subjective HPI/Critical Care Issues: Doing better Still has mild dyspnea Objective Current Medications: Current Medications Sig/Rosetta Start time Last Medication Dose Route Stop Time Status Admin Acetaminophen 325 MG Q6P PRN 08/22 2315 AC PO Albuterol Sulfate 2 PUF Q6P PRN 08/23 1400 AC INH Budesonide/ 2 PUF TID 08/23 1000 AC 08/28 Formoterol Fumarate INH 1020 Calcium 600 MG DAILY 08/27 1329 DC PO Calcium Gluconate 500 MG DAILY 08/27 1335 AC 08/28 PO 1019 Ceftazidime 1,000 MG ONCE ONE 08/27 1900 CAN IV 08/27 1901 Ceftazidime 1,000 MG ONCE ONE 08/27 1630 DC 08/27 IV 08/27 1631 1632 Ceftazidime 1,000 MG IQ8 08/27 1600 DC IV 08/27 1900 Cholecalciferol 1,000 IU DAILY 08/23 1000 AC 08/28 PO 1019 Enoxaparin Sodium 40 MG DAILY 08/23 1000 AC 08/28 SC 1021 Guaifenesin 600 MG Q12 08/23 0222 AC 08/28 PO 1019 Melatonin 5 MG AT BEDTIME 08/26 2200 AC 08/27 PO 2208 Moxifloxacin HCl 400 MG DAILY 08/28 1000 AC 08/28 PO 1019 Naproxen 250 MG BID PRN 08/22 2315 AC 08/24 PO 2325 Omeprazole 40 MG DAILY AC 08/23 0700 AC 08/28 PO 0551 Patient Medication 1 ED .STK-MED ONE 08/27 1419 [facility] Teaching ED 08/27 1420 Prednisone 60 MG DAILY 08/28 1000 DC PO Prednisone 60 MG DAILY 08/27 1630 AC 08/28 PO 1019 Tiotropium Warrior 1 PUF DAILY 08/23 1000 AC 08/28 INH 1019 Vancomycin HCl 1,500 MG Q12 08/27 2200 CAN Sodium Chloride 500 ML IV 08/27 2300 Vancomycin HCl 1,500 MG ONCE ONE 08/27 1900 CAN Sodium Chloride 250 ML IV 08/27 1944 Vancomycin HCl 1,500 MG ONCE ONE 08/27 1630 CAN Sodium Chloride 500 ML IV 08/27 1759 Vancomycin HCl 1,500 MG ONCE ONE 08/27 1415 DC 08/27 Sodium Chloride 250 ML IV 08/27 1459 1633 Vital Signs & I&O Last 24 Hrs of Vitals and I&O: Vital Signs Date Time Temp Pulse Resp B/P Pulse O2 O2 Flow FiO2 Ox Delivery Rate 08/28 0800 Nasal 5.0L Cannula 08/28 0643 97.7 74 22 120/88 97 Nasal Cannula 08/28 0000 Nasal 5.0L Cannula 08/27 2246 98.1 90 20 120/60 93 Nasal Cannula 08/27 1600 Nasal 5.0L Cannula 08/27 1537 98.4 69 20 124/72 92 Intake & Output 08/28 1600 08/28 0800 08/28 0000 Intake Total 100 350 Output Total Balance 100 350 Intake, IV 250 Intake, Oral 100 100 Impression/Plan Impression/Plan Impression/Plan: CT CHEST WITH IVC IMPRESSION: 1. No evidence of pulmonary embolism. 2. Chronic interstitial and emphysematous changes of lung. There is developing confluent airspace disease in the right lung that is worsening since prior exams. Finding of multifocal pneumonia. Patient does have history of lung cancer. Known underlying malignancy cannot be entirely excluded. There is associated mediastinal lymphadenopathy. VTE: Negative. DICTATED BY: HAILY CAMP MD DATE/TIME DICTATED:08/22/162131 Physical Exam General Appearance Alert, Oriented X3, Cooperative, Moderate Distress Skin No Rashes HEENT Atraumatic, PERRLA, EOMI, Mucous Membr. moist/pink Neck No JVD Cardiovascular Regular Rate, Normal S1, Normal S2, No Murmurs Lungs mild wheezing on the right chest from the anterior side Abdomen Normal Bowel Sounds, Soft, No Tenderness Neurological Normal Speech Extremities No Cyanosis, No Edema, clubbing on all fingers This is a 70-year-old gentleman with very advanced emphysema with previous clinical diagnosis of right upper lobe and right lower lobe 2 separate primary lung cancers T2 probable N0 and T1 probable N0 with previous negative biopsy including negative biopsy for 4R lymph node with significant PET abnormality for which she has had radiation therapy at [place] now subsequently has worsening overall performance status with significant shortness of breath and CT scan suggestive of worsening pulmonary infiltrates with air bronchogram in the anterior right upper lobe and in the posterior right lower lobe which seems to be much worse since May 2016. His issues include * Resolving Acute hypoxemic respiratory failure related to very severe COPD now with worsening lung cancer in the right side clinically versus radiation pneumonitis. So far has shown improvement and Bacterial pneumonitis seems less likely however it cannot be ruled out * Use had worsening mediastinal lymphadenopathy suggestive of tumor progression vs reactive lymphadenopathy with previous LN biopsy being neg * No clinical evidence suggestive of invasive Aspergillus her PCP etc. however that may need to be ruled out if he clinically improves * Severe emphysema with worsening performance status * Recent evidence suggestive of radiation pneumonitis which is still present * Hiatal hernia with GERD * Anxiety/depression. Recommendation * moxi for another 5 days * PO prednisone 60 qd for 2 weeks and then very slow Taper after with 50 mg for two weeks and 40 for two weeks * Start po vit d 1000 units and one calcium pill daily * Start fosomax 70 mg q weekly after dc * Continue his current bronchodilator * Strict diet while on steroids * Hopefully dc today * Follow up as out pt
--- NOTE | 2016-08-29 15:34 | Discharge Summary ---
See Addendum Visit Information Visit Dates Admission Date: 08/22/16 Discharge Date: 08/28/16 Hospital Course Course Attending Physician: ANA ROMO M.D Primary Care Physician: RUBI CORTÉS,[place] Hospital Course: 70-year-old male with a past medical history of non-small cell lung cancer status post radiation at [place] 3 months ago, significant COPD/emphysema on 3L home oxygen at rest, and 8L on exertion, previous history of DVTs not on any anti-coagulation presenting with progressively worsening exertional dyspnea following the last radiation therapy 3 months ago. His acute hypoxic respiratory failure was considered to be most likely 2/2 HCAP with a component of advanced emphysema and radiation pneumonitis. # Acute hypoxic respiratory failure Patient desaturated to 79% in the ED, requiring high flow oxygen after which the saturations improved to above 90%. This was most likely 2/2 HCAP and advanced COPD/emphysema. It was also deemed likely that radiation pneumonitis has developed following his XRT 3 months ago. Patient received 1 dose of IV ceftriaxone and azithromycin in the ED. While inpatient patient received IV steroid with IV antibiotics, which was transitioned to an oral antibiotics upon discharge, as discussed below. Patient was discharged on steroid taper (in form of predinsone 20mg and 10mg tabs). # Healthcare Associated Pneumonia CTA chest upon admission showed no PE but persistent patchy bilateral pulmonary opacities, suggestive of multilobar pneumonia. Blood cultures showed no growth, and sputum culture, yeast. Patient received IV ceftriaxone 1g QD and IV Zithromax 500mg QD. Patient was discharged on Moxifloxacin per pulmonology's receommendation. # Advanced COPD/emphysema Patient received IV SoluMedrol and on IV antibiotics as per above-mentioned plans. Patient was also continued Symbicort, Spiriva, Ventolin inhalers. # Lung cancer Patient has a presumably independen primary NSCLCs of the right upper lobe and right lower lobe, cT2aN0 and cT1bN0, respectively. S/p 5 cylcles of XRT (last session 3 months ago). Chest CT on 08/01/15 showed a spiculated 3 x 1.4 cm RUL lesion, and a 1.7 x 1.7cm RLL lesion. PET showed uptake in both (SUVm 3.7 in the RUL lesion, and SUVm 5.7 in the RLL lesion), with no adenopathy or distant disease noted. CT guided biopsy of the RUL nodule was non-diagnostic. A repeat Chest CT showed radiographic progression of the 2 lesions. A mediastinoscopy on 01/02/16 was negative at station 4R. Despite lack of path confirmation, the two nodules were considered highly suspicious for lung cancers given his smoking history and the radiographic characteristics and progression on serial scans. With negative mediastinal staging, the RUL and RLL lesions were presumed to be independent stage I lung cancers, and therefore the patient underwent SBRT radiosurgery under the direction of Dr. Anat Hurtado. Patient was followed by Dr. Jarquin with no interventions while inpatient. * Per Dr. Yadav, no interventions recommended from oncology standpoint at this point. Patient is not a candidate for chemotherapy. Radiation is currently not indicated as patient may be actively suffering from radiation pneumonitis. Allergies: Coded Allergies: NO KNOWN ALLERGIES (05/16/14) Disposition Summary Disposition Principal Diagnosis: HCAP Additional Diagnosis: Acute hypoxic respiratory failure Discharge Disposition: hospice - home Discharge Instructions General Discharge Information Code Status: Do Not Resucitate/Intubat Patient's Diet: Heart healthy diet Patient's Activity: As tolerated with oxygen as needed Follow-Up Instructions/Appts: Please follow up with Dr. Lowery (wooling machine operator) and Dr. Lau (primary care) within a week of discharge. Medications at Discharge Discharge Medications: Stop taking the following medications: Prednisone (Prednisone) 10 MG TABLET ORAL See Instructions Qty = 105 Continue taking these medications: Omeprazole (Omeprazole) 40 MG CAPSULE.DR 1 Capsule ORAL DAILY Comments: Last Taken: 08/28/16 Time: 6 AM Tiotropium [place] (Spiriva) 18 MCG CAP.W.DEV 1 Capsule Inhale through mouth DAILY Comments: Last Taken: 08/28/16 Time: 10 AM Budesonide/Formoterol Fumarate (Symbicort 160-4.5 Mcg Inhaler) 160 MCG-4.5 MCG/ ACTUATION HFA.AER.AD 2 Puff Inhale through mouth THREE TIMES DAILY Comments: Last Taken: 08/28/16 Time: 10 AM Hydrocodone/Acetaminophen (Hydrocodon-Acetaminophen 5-300) (Unknown Strength) TABLET Unknown Dose ORAL TWICE DAILY Comments: NOT GIVEN Albuterol Sulfate (Proventil Hfa) 90 MCG HFA.AER.AD 2 Puff Inhale through mouth as needed for EMPHYSEMA Comments: NOT GIVEN Naproxen Sodium (Aleve) 220 MG TABLET 2 Tablet ORAL DAILY Comments: NOT GIVEN Acetaminophen (Tylenol Extra Strength) 500 MG TABLET 2 Tablet ORAL as needed for PAIN Comments: NOT GIVEN Cholecalciferol (Vitamin D3) (Vitamin D) (Unknown Strength) TABLET Unknown Dose ORAL DAILY Comments: Last Taken: 08/28/16 Time: 10 AM Cyanocobalamin (Vitamin B-12) (Unknown Strength) TABLET Unknown Dose ORAL EVERY FRIDAY Comments: NOT GIVEN Start taking the following new medications: Prednisone (Prednisone) 20 MG TABLET 60 Milligram ORAL DAILY Days = 25 No Refills Instructions: DOSE DATE 60mg until 09/09 40MG 09/10-09/11 30MG 09/12-09/13 20MG 09/14-09/15 10MG 09/16-09/17 5MG 09/18-09/1909/09/15. Comments: Last Taken: 08/28/16 Time: 10 AM Alendronate Sodium (Fosamax) 70 MG TABLET 1 Tablet ORAL Once a Week Qty = 12 No Refills Instructions: in the morning, at least 30 minutes before the first food, beverage, or medication of the day Comments: NOT GIVEN Moxifloxacin HCl (Avelox) 400 MG TABLET 1 Tablet ORAL DAILY Days = 7 No Refills Instructions: Stop after last dose on 09/03/16. Comments: Last Taken: 08/28/16 Time: 10 AM Calcium Gluconate (Calcium Gluconate) 45 MG CALCIUM (500 MG) TABLET 500 Milligram ORAL DAILY Days = 30 No Refills Comments: Last Taken: 08/28/16 Time: 10 AM Copies To: ARISTEO CORTÉS,DOREEN Drake; RUBI CORTÉS,JUANA
== END 2016-08-28 12:53 | DRG 177 ==
LOC: ERH 18:19 → ERHI 22:27 → 2NA 22:27
PROVIDERS: Physician Assistant Medical; Student in an Organized Health Care Education/Training Program; ADMIT Internal Medicine
DX: J15.6 Pneumonia due to other Gram-negative bacteria (principal); J96.21 Acute and chronic respiratory failure with hypoxia; J43.9 Emphysema, unspecified; C34.90 Malignant neoplasm of unspecified part of unspecified bronchus or lung; J44.9 Chronic obstructive pulmonary disease, unspecified; Z99.81 Dependence on supplemental oxygen; R59.0 Localized enlarged lymph nodes; J70.0 Acute pulmonary manifestations due to radiation; K21.9 Gastro-esophageal reflux disease without esophagitis; F17.210 Nicotine dependence, cigarettes, uncomplicated; K44.9 Diaphragmatic hernia without obstruction or gangrene; F41.8 Other specified anxiety disorders
CPT/HCPCS: 2NASP; ERO; 36415; 82436; 87040; 87070; 87449; 87450; 87804; 87804-59; 93005; 93010; J0456; J0696; J0713; J1650; J2920; J2930; J3370; J3490; J7040; J7512

== ENCOUNTER 2016-12-09 20:13 | Inpatient (IN) | payer OTHER ==
[~2016-12-09] VITALS: Ht 182.9 cm; Wt 106.6 kg
[~2016-12-09 20:13] MED LIST changes: +AEROCHAMBER WI1 EACH INH; +AVELOX400 M1 PO; +CALCIUM GLUCONA45 MG PO; +FOSAMAX70 M1 PO; +PREDNISONE20 M1 PO; +VITAMIN B-121000 MC3 PO; +VITAMIN D2000 UNI1 PO
--- NOTE | 2016-12-09 20:24 | NUR ---
PT IN ROOM 7. AWA SIMMONS AND RESP AT BEDSIDE. GETTING NEB TX. ABGS DRAWN. PT ON MONITOR AND IS IN SINUS T[place]
--- NOTE | 2016-12-09 20:26 | ED DYSPNEA/ASTHMA COMPLAINT ---
History of Present Illness General Chief Complaint: Dyspnea (COPD, CHF, Other) Stated Complaint: SOB Source: patient, old records Exam Limitations: no limitations Vital Signs & Intake/Output Vital Signs & Intake/Output Vital Signs Date Time Temp Pulse Resp B/P Pulse O2 O2 Flow FiO2 Ox Delivery Rate 12/090 93 Venti Mask 55% 12/09 2302 97.7 104 20 98/60 91 Venti Mask 55% 12/09 2213 100 22 115/76 95 Venti Mask 55% 12/09 2204 95 Venti Mask 55% 12/09 2024 96.1 122 40 129/82 78 Nasal 6.0L Cannula 12/10 2019 6.0L ED Intake and Output 12/10 0000 12/09 1200 Intake Total 300 Output Total Balance 300 Intake, IV 300 Patient 235 lb Weight Allergies Coded Allergies: NO KNOWN ALLERGIES (05/16/14) Reconcile Medications Albuterol Sulfate (Proventil Hfa) 90 MCG HFA.AER.AD 2 PUF INH PRN EMPHYSEMA ( Reported) Budesonide/Formoterol Fumarate (Symbicort 160-4.5 Mcg Inhaler) 160 MCG-4.5 MCG/ ACTUATION HFA.AER.AD 2 PUF INH TID EMPHYSEMA (Reported) Cholecalciferol (Vitamin D3) (Vitamin D) 2,000 UNIT TABLET 1 TAB PO DAILY SUPPLEMENT (Reported) Cyanocobalamin (Vitamin B-12) 1,000 MCG TABLET 1 TAB PO QMON SUPPLEMENT ( Reported) Hydrocodone/Acetaminophen (Hydrocodon-Acetaminophen 5-300) 5 MG-300 MG TABLET 1 TAB PO BID PRN PAIN (Reported) Naproxen Sodium (Aleve) 220 MG TABLET 2 TAB PO DAILY PAIN (Reported) Omeprazole 40 MG CAPSULE.DR 1 CAP PO DAILY GI (Reported) Prednisone 10 MG TABLET 20 MG PO DAILY STEROID (Reported) Triage Note: BIBA FOR SOB. PT WITH LUNG CA, COPD, ON HOME O2 AT 4 LITERS. HAS HAD WORSENING SOB PAST FEW DAYS. RECIEVED TWO NEB TX BY EMS. IV STARTED BY EMS. UPON ARRIVAL PT WITH RESP RATE 40. SATS 78% ON 6 LITERS. TACHY AT 122. AWA SIMMONS IN TO SEE PT. RT IN TO GIVE NEB TX. PT ABLE TO TALK AND PROVIDE HX DESPITE SOB. SKIN RED AND DRY. NON PRODUCTIVE COUGH Triage Nurses Notes Reviewed? yes Onset: Gradual Duration: getting worse Severity: severe Activities at Onset: activity, rest Prior Episodes/Possible Cause: frequent episodes, chronic episodes Modifying Factors: Improves With: rest. Worsens With: movement. HPI: Patient is a 71-year-old male with a recent diagnosis approximately 6 months ago of non-small cell lung carcinoma status post radiation, significant COPD on 3 L of home oxygen at rest however 8 L on exertion, previous DVT currently not on anticoagulation who is brought in by ambulance for a 2 to three-day history of worsening shortness of breath and dyspnea on exertion. Patient denies any fevers chills chest pain arm pain jaw pain nausea vomiting leg swelling or hemoptysis. (AWA MOSS) Past History Travel History Traveled to [place] past 21 day No Medical History Any Pertinent Medical History? see below for history Neurological: NONE EENT: NONE Cardiovascular: NONE Respiratory: COPD, emphysema, LUNG NODULES Gastrointestinal: HERNIA Hepatic: NONE Renal: NONE Musculoskeletal: NONE Psychiatric: NONE Endocrine: NONE Blood Disorders: NONE Cancer(s): lung cancer [employer]IVE/Reproductive: NONE History of MRSA: No History of VRE: No History of CDIFF: No Pneumonia Vaccine: 05/25/15 Influenza Vaccine: 05/25/16 Surgical History Surgical History: cholecystectomy, TONSILS REMOVED HERNIA REPAIR KNEE REPLACEMENT [facility] HYDROSEAL Psychosocial History Who do you live with Patient/Self Services at Home Oxygen What is your primary language Bhutanese Tobacco Use: Quit >30 days ago ETOH Use: occasional use Family History Hx Contributory? No (AWA MOSS) Review of Systems Review of Systems Constitutional: Reports: no symptoms. EENTM: Reports: no symptoms. Respiratory: Reports: see HPI, short of breath. Cardiovascular: Reports: no symptoms. GI: Reports: no symptoms. Genitourinary: Reports: no symptoms. Musculoskeletal: Reports: no symptoms. Skin: Reports: no symptoms. Neurological/Psychological: Reports: no symptoms. Hematologic/Endocrine: Reports: no symptoms. Immunologic/Allergic: Reports: no symptoms. All Other Systems: Reviewed and Negative (AWA MOSS) Physical Exam Physical Exam General Appearance: moderate distress Respiratory: quiet respiration, decreased breath sounds, respiratory distress Comments: HEENT: Normal EENT exam Neck: Supple, no lymphadenopathy, normal range of motion without pain or tenderness Back: Nontender, no CVA tenderness. Cardiovascular: TACHYCARDIA no murmurs rubs or gallops, normal JVP Abdomen: Soft, nontender nondistended, no appreciable organomegaly. Normal bowel sounds. No ascites Extremity: No edema, no calf tenderness to palpation, normal and equal pulses. Neuro: Alert oriented x3, motor sensory normal, Skin: No appreciable rash on exposed skin, skin is warm and dry. Psych: Mood and affect is normal, memory and judgment is normal. Core Measures ACS in differential dx? Yes Severe Sepsis Present: No Septic Shock Present: No (IRIS TRAN,AWA) Progress Differential Diagnosis: asthma, AMI, bronchitis, costochondritis, CHF, COPD, musculoskeletal pain, pericarditis, pulmonary embolism, pneumonia, pneumothorax, unstable angina, CANCER, Plan of Care: Orders Procedure Date/time Status Heart Healthy Diet 12/10 B Active TROPONIN LEVEL 12/10 0900 Active LACTIC ACID 12/10 0600 Active CBC WITHOUT DIFFERENTIAL 12/10 0600 Active BASIC ELECTROLYTES PLUS BUN&CR 12/10 0600 Active EKG 12/10 0300 Active LACTIC ACID 12/09 2320 Complete OXYGEN SETUP (GEN) 12/09 2300 Complete Vital Signs 12/09 2300 Active Teach/Educate 12/09 2300 Active Pain Treatment and Response 12/09 2300 Active Nutritional Intake, Monitor 12/09 2300 Active Isolation 12/09 2300 Active Intake & Output 12/09 2300 Active Patient Care Conference 12/09 2300 Active Activity/Ambulation 12/09 2300 Active Pathway - chart 12/09 2244 Active Code Status 12/09 2244 Active Intake & Output 12/09 2216 Active PULSE OXIMETRY (GEN) 12/09 2205 Active EKG 12/095 Active Pathway - chart 12/09 2204 Active STREP PNEUMO URINARY ANTIGEN 12/09 220 Active LEGIONELLA URINARY ANTIGEN 12/09 2204 Active LOWER RESPIRATORY CULTURE 12/09 2204 Active OXYGEN SETUP (GEN) 12/09 214 Active Saline Lock 12/09 2144 Active Misc Message 12/09 2144 Active ED Holding Orders 12/09 214 Active Vital Signs 12/09 214 Active Activity/Ambulation 12/09 2144 Active Code Status 12/09 2144 Complete Patient Data 12/09 2116 Active Admit to inpatient 12/10 2115 Active B-TYPE NATRIURETIC PEP (BNP) 12/09 204 Complete RAPID VIRAL INFLUENZA A 12/09 2025 Complete LACTIC ACID 12/10 2019 Complete LOWER RESPIRATORY CULTURE 12/09 2018 Active BLOOD CULTURE 12/09 2018 Active TROPONIN LEVEL 04/17 2019 Complete D-DIMER 12/09 2018 Complete COMPREHENSIVE METABOLIC PANEL 12/09 2018 Complete CBC WITHOUT DIFFERENTIAL 12/09 2018 Complete EKG 12/09 2018 Active ARTERIAL BLOOD GAS (GEN) 12/09 2017 Complete TRC EVALUATION (GEN) 12/09 UNK Active OXYGEN SETUP (GEN) 12/09 UNK Active House Staff 12/09 UNK Active VTE Mechanical Prophylaxis 12/09 UNK Active Vital Signs 12/09 UNK Complete ECHOCARDIOGRAM 12/09 UNK Active Current Medications Sig/Rosetta Start time Last Medication Dose Stop Time Status Admin Cyanocobalamin 1,000 MCG QMON 12/16 0700 AC (Vitamin B12) Azithromycin 500 MG DAILY 12/10 1000 AC (Zithromax) Sodium Chloride 250 ML (Normal Saline 0.9%) Ceftriaxone Sodium 1,000 MG DAILY 12/10 1000 AC (Rocephin) 12/11 0959 Cholecalciferol 1,000 IU DAILY 12/10 1000 AC (Vitamin D) Tiotropium [place] 1 PUF DAILY 12/10 1000 AC (Spiriva) Omeprazole 40 MG DAILY AC 12/10 0700 AC (Prilosec) Heparin Sodium 5,000 UNIT Q8 12/10 0600 AC (Porcine) Methylprednisolone 40 MG Q8 12/10 0600 AC (Solumedrol) Furosemide 20 MG ONCE ONE 12/09 2345 CAN (Lasix) 12/09 2346 Acetaminophen 650 MG Q6P PRN 12/09 2245 AC (Tylenol) Ibuprofen 400 MG TID PRN 12/09 2245 AC (Motrin) Oxycodone HCl 10 MG Q6P PRN 12/09 2245 AC (Roxicodone) Laboratory Tests 12/09/162331: Lactic Acid 2.6 H 12/09/167: Anion Gap 15, Estimated GFR > 60, BUN/Creatinine Ratio 31.1 H, Glucose 129 H, Calcium 9.3, Total Bilirubin 1.2, AST 18, ALT 29, Alkaline Phosphatase 65, Troponin I 0.03, Yqf-N-Oeikqksrgwn Pept 1490 H, Total Protein 6.6, Albumin 3.6, Globulin 3.0, Albumin/Globulin Ratio 1.2, D-Dimer 868 H 12/09/162043: Lactic Acid 2.1, CBC w Diff NO MAN DIFF REQ, RBC 5.47, MCV 91.1, MCH 30.4, RDW 15.9 H, MPV 7.6, Gran % 81.3 H, Lymphocytes % 10.3 L, Monocytes % 8.0, Eosinophils % 0.2, Basophils % 0.2, Absolute Granulocytes 8.8 H, Absolute Lymphocytes 1.1 L, Absolute Monocytes 0.9 H, Absolute Eosinophils 0, Absolute Basophils 0, PUBS MCHC 33.4 12/09/162025: Rkz-R-Ksxxbhtdvls Pept Cancelled 12/09/162014: pH 7.44, pCO2 22 L, pO2 52 L, HCO3 15 L, ABG O2 Sat (Measured) 83.0 L, P-50 (Temp Corrected) N, Carboxyhemoglobin 2.2, O2 Concentration % 6L, Temperature 97.0, O2 Delivery Method NEB, Phlebotomy Draw Site RIGHT RADIAL Microbiology 12/10 2203 URINE ROUT: Legionella Antigen - ORD 12/10 2203 URINE ROUT: Streptococcus pneumoniae Antigen (M - ORD 12/10 2203 LOWER RESP: Respiratory Culture - ORD 12/10 2203 LOWER RESP: Gram Stain - ORD 12/09 2132 NASOPHARYN: Influenza Virus A & B Rapid Smear - COMP 12/09 2116 BLOOD: Blood Culture - RECD 12/10 2043 BLOOD: Blood Culture - RECD 12/09 2018 LOWER RESP: Respiratory Culture - ORD 12/09 2018 LOWER RESP: Gram Stain - ORD Patient on initial examination was noted to have 6 L with nonrebreather at 77% oxygen saturation. Patient was given nebulizer treatment then put on 12 L which improved her oxygen saturation to 85% 12/09/2016 10:41:01 PM patient currently is on 12 L noted to be 93% with significant improvement of respiratory distress. Patient's CT angiogram was unremarkable for pulmonary embolism. Patient will be admitted for concerns of COPD respiratory failure. Discussed admission with Dr. Lara who agrees (IRIS TRAN,AWA) Diagnostic Imaging: Viewed by Me: CT Scan. Radiology Impression: no acute abnormality Initial ED EKG: SINUS TACHYCARDIA 111 BPM Prior EKG: unchanged Comments: PATIENT: YULISA FOWLER PRESENT AGE: 71 PATIENT ACCOUNT NO: [id number] : 45 LOCATION: 1NO ORDERING PHYSICIAN: AWA TRAN SERVICE DATE: 12/09/16 EXAM TYPE: CAT - CTA CHEST-PULMONARY EMBOLISM EXAMINATION: CT PULMONARY EMBOLISM STUDY CLINICAL INFORMATION: Shortness of breath, elevated d-dimer. COMPARISON: Same day chest radiograph. Chest CTA from July 2016. TECHNIQUE: Contiguous helical images of the chest were obtained following the administration of IV contrast. Multiplanar reconstructions were performed. MIPS were obtained and reviewed. DLP: 590 mGy-cm. CONTRAST: 85 mL of Optiray 320 were demonstrated without incident. FINDINGS: The heart is of normal size. There is no pericardial effusion. The great vessels are unremarkable. Specifically, there is no pulmonary arterial filling defect. There is no CT evidence for pulmonary embolism. There are no chest wall masses. Review of lung windows demonstrates that there are neither pleural effusions nor pneumothoraces. Again identified is emphysema, predominantly within the upper lobes. The appearance of extensive interstitial disease within the right lung is not significantly changed. Interstitial disease within the left upper lobe is also stable. I doubt the presence of significant superimposed acute airspace disease. Limited evaluation of the upper abdomen demonstrates that the liver is of normal size and attenuation without focal lesions. Normal adrenal glands are identified. A hiatal hernia is present. IMPRESSION: No CT evidence for pulmonary embolism. Stable appearance of diffuse chronic interstitial disease superimposed upon emphysema. The appearance of opacification in the right lung is relatively stable. (AWA MOSS) Departure Departure Disposition: STILL A PATIENT Condition: Critical Clinical Impression Primary Impression: Respiratory failure Secondary Impressions: Cor pulmonale Referrals: JUANA VENEGAS MD (PCP/Family) Departure Forms: Customer Survey General Discharge Information Admission Note Spoke With: ANDERS NESBITT MD Documentation of Exam: Documentation of any treatments & extenuating circumstances including Concerns Regarding Discharge (functional status, medication knowledge or non-compliance, living conditions, etc.) that warrant an admission rather than observation: [ Discussed patient with who agrees with telemetry admission for concerns of respiratory failure, patient requires pulmonology consultation,] (AWA MOSS) PA/MINIATURE MODEL MAKER Co-Sign Statement Statement: ED Attending supervision documentation- [X] I saw and evaluated the patient. I have also reviewed all the pertinent lab results and diagnostic results. I agree with the findings and the plan of care as documented in the PA's/MINIATURE MODEL MAKER's documentation. [X] I have reviewed the ED Record and agree with the PA's/MINIATURE MODEL MAKER's documentation. [] Additions or exceptions (if any) to the PAs/MINIATURE MODEL MAKER's note and plan are summarized below: [] (AJCQUELYN CORTÉS,MEHRDAD Layton) Critical Care Note Critical Care Note Critical Care Time: 30-74 min (IRIS TRAN,AWA)
--- NOTE | 2016-12-09 20:32 | NUR ---
PT GIVEN SOLUMEDROL IV. ABGS RESULTED. FACE MASK PUT UP TO 55% BY RT. SATS 88%. PT CONTINUES TO BE TALKATIVE DESPITE SOB.
--- NOTE | 2016-12-09 20:40 | NUR ---
TIMI MCCURDY IN TO DRAW LABS AND BLOOD CULTURES
--- NOTE | 2016-12-09 20:52 | RADIOLOGY REPORT ---
EXAMINATION: CHEST 1 VIEW CLINICAL INFORMATION: Shortness of breath. COMPARISON: 09/27/2016. TECHNIQUE: An AP view of the chest is provided. FINDINGS: The cardiac silhouette is not enlarged. The mediastinal and hilar contours are unremarkable. There are neither pleural effusions nor pneumothoraces. Again identified is extensive interstitial disease with persistent superimposed airspace disease within the right midlung and left lung base with slight improved aeration at the left lung base since the prior exam. The osseous structures are unremarkable. IMPRESSION: Persistent extensive interstitial disease with superimposed right mid and lower lung zone airspace disease.
[2016-12-09 20:59] LABS: ABSOLUTE BASOPHIL COUNT 0 /CUMM (0.0-0.2); ABSOLUTE EOSINOPHIL COUNT 0 /CUMM (0.0-0.7); ABSOLUTE GRANULOCYTE CT 8.8 /CUMM (1.4-6.5); ABSOLUTE LYMPH COUNT 1.1 /CUMM (1.2-3.4); ABSOLUTE MONOCYTE COUNT 0.9 /CUMM (0.10-0.60); BASOPHIL % 0.2 % (0.0-2.0); EOSINOPHIL % 0.2 % (0-5); GRANULOCYTE % 81.3 % (42.2-75.2); HEMATOCRIT 49.8 % (42-52); MEAN CORPUSCULAR HGB 30.4 PG (27.0-31.0); MEAN CORPUSCULAR HGB CONC 33.4 G/DL (33.0-37.0); MEAN CORPUSCULAR VOLUME 91.1 FL (80.0-94.0); MEAN PLATELET VOLUME 7.6 FL (7.4-10.4); PLATELET COUNT 199 /CUMM (130-400); RBC DISTRIBUTION WIDTH 15.9 % (11.5-14.5); RED BLOOD CELL CT 5.47 /CUMM (4.70-6.10); WHITE BLOOD CELL COUNT 10.8 /CUMM (4.8-10.8)
--- NOTE | 2016-12-09 21:05 | NUR ---
PER ED IN THE LAB, BLUE,SST,SALOMON NEED TO BE REDRAWN
--- NOTE | 2016-12-09 21:08 | NUR ---
O2 SATS 88-90 ON 55% VENTI MASK. PT FEELS SOME BETTER.
--- NOTE | 2016-12-09 21:20 | NUR ---
SECOND SET OF CULTURES DRAWN BY TIMI MCCURDY
[2016-12-09] MEDS ORDERED: PREDNISONE10 M2 PO (21:42)
--- NOTE | 2016-12-09 21:49 | NUR ---
RESP RATE 30. SATS 92% ON 55% FACE MASK. IV ABX GIVEN.
--- NOTE | 2016-12-09 21:50 | History & Physical ---
BRIJESH CORTÉS,EUGENIO 12/09/16 2148: General Information and HPI MD Statement: I have seen and personally examined YULISA FOWLER and documented this H&P. The patient is a 71 year old M who presented with a patient stated chief complaint of []. Source of Information: old records Exam Limitations: clinical condition History of Present Illness: Patient is a 71-year-old male , former smoker with significant past medical history of GERD, hiatal hernia, anxiety, depression , NSCLC s/p radiation at [facility](2015), history of radiation pneumonitis, DVT (not on anticoagulation ) COPD on 4 liters of oxygen, lung nodule, presented with chief complaints of gradually progressive dyspnea since couple of days. According to the patient after having radiation in May 2016. He had 2 episodes of pneumonia in June and August and he was doing okay on 4 liters of oxygen. I want to weeks ago he started having gradually progressive dyspnea, especially on exertion. Even his oxygen requirement has increased from 4 liters to 6 liters. His oxygen saturation decreased down to 64%. Seems more than 2 days , he is getting worse and worse. He is feeling generalized weakness along with tingling and numbness in limbs. He denies for taking any treatment. He was also complaining of cough since last 2 months, which was dry in nature and gotten worse since couple of days. He also has episodes of hot spells and chills around a week ago. His appetite has been decreased. He feels more thirsty , although his fluid intake is adequate. He is also having episodes of alternating diarrhea and constipation. He was also c/o chest pain, which he thinks more related to the hurt burn. Off note according to him he was told by Dr Lowery, advised him to keep oxygen to 2 L only, but when home nurse came to home, he was found to be in low SpO2 so they increase the oxygen to 4L. He was also told by Dr Lowery that he should use night time oxygen but he is not using it because cord tangle around neck and he is afraid of it. Denies -fever, nausea, vomiting, sick contact, recent trauma. He is also complaining of increased frequency and hesitancy of urination. He denies for any history of BPH. Surgical history -history of cholecystectomy, partial/total knee replacement, tonsillitis, hydrocele, gastric bypass surgery Personal history-former smoker, he was diagnosed as having emphysema at the age of 19 years. He is going to [place] for regular follow-up. Family history- father -emphysema , at the age of 60 years, sister - lung cancer Allergies/Medications Allergies: Coded Allergies: NO KNOWN ALLERGIES (05/16/14) Home Med list Albuterol Sulfate (Proventil Hfa) 90 MCG HFA.AER.AD 2 PUF INH PRN EMPHYSEMA ( Reported) Budesonide/Formoterol Fumarate (Symbicort 160-4.5 Mcg Inhaler) 160 MCG-4.5 MCG/ ACTUATION HFA.AER.AD 2 PUF INH TID EMPHYSEMA (Reported) Cholecalciferol (Vitamin D3) (Vitamin D) 2,000 UNIT TABLET 1 TAB PO DAILY SUPPLEMENT (Reported) Cyanocobalamin (Vitamin B-12) 1,000 MCG TABLET 1 TAB PO QMON SUPPLEMENT ( Reported) Hydrocodone/Acetaminophen (Hydrocodon-Acetaminophen 5-300) 5 MG-300 MG TABLET 1 TAB PO BID PRN PAIN (Reported) Naproxen Sodium (Aleve) 220 MG TABLET 2 TAB PO DAILY PAIN (Reported) Omeprazole 40 MG CAPSULE.DR 1 CAP PO DAILY GI (Reported) Prednisone 10 MG TABLET 20 MG PO DAILY STEROID (Reported) Past History Travel History Traveled to [place] past 21 day No Medical History Neurological: NONE EENT: NONE Cardiovascular: NONE Respiratory: COPD, emphysema, LUNG NODULES Gastrointestinal: HERNIA Hepatic: NONE Renal: NONE Musculoskeletal: NONE Psychiatric: NONE Endocrine: NONE Blood Disorders: NONE Cancer(s): lung cancer 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 unknown Functional Ability ADLs Independent: dressing, eating, toileting, bathing. Ambulation: independent IADLs Independent: shopping, housework, finances, food prep, telephone, transportation , medication admin. Review of Systems Review of Systems Constitutional: Reports: chills, weakness. Denies: diaphoresis, fever, malaise. EENTM: Reports: blurred vision. Denies: double vision, visual changes, eye pain. Cardiovascular: Reports: chest pain, edema, orthopena, palpitations, peripheral edema. Denies: syncope. Respiratory: Reports: cough, orthopnea, short of breath. Denies: hemoptysis, sputum production, stridor, wheezing. GI: Reports: constipation, diarrhea, distention. Denies: abdominal pain, bloating, bowel incontinence, melena, nausea, bloody stool. Genitourinary: Reports: frequency, hesitation. Musculoskeletal: Denies: back pain. Skin: Denies: no symptoms. Neurological/Psychological: Reports: anxiety, depressed. Exam & Diagnostic Data Last 24 Hrs of Vital Signs/I&O Vital Signs Date Time Temp Pulse Resp B/P Pulse O2 O2 Flow FiO2 Ox Delivery Rate 12/09 2310 93 Venti Mask 55% 12/093 97.7 104 20 98/60 91 Venti Mask 55% 12/094 100 22 115/76 95 Venti Mask 55% 12/09 2204 95 Venti Mask 55% 12/09 2024 96.1 122 40 129/82 78 Nasal 6.0L Cannula 12/09 2020 6.0L Intake & Output 12/10 0800 12/10 0000 12/09 1600 Intake Total 300 Output Total Balance 300 Intake, IV 300 Patient 106.594 kg Weight Physical Exam General Appearance Alert, Oriented X3, Cooperative, Mild Distress Skin No Rashes, No Breakdown HEENT Atraumatic, PERRLA, EOMI, dilated right and constricted left pupil Neck Supple, JVD+ Cardiovascular Normal S1, Normal S2, tachycardia Lungs decresed air entry Abdomen Soft, No Tenderness, distended Neurological Normal Speech Extremities No Clubbing, No Cyanosis, mild edema, clubbing+ Vascular Normal Pulses, Pulses Symmetrical Last 24 Hrs of Labs/Regan: Laboratory Tests 12/09/16 2332: Lactic Acid 2.6 H 12/09/167: Anion Gap 15, Estimated GFR > 60, BUN/Creatinine Ratio 31.1 H, Glucose 129 H, Calcium 9.3, Total Bilirubin 1.2, AST 18, ALT 29, Alkaline Phosphatase 65, Troponin I 0.03, Cul-A-Ewjqvznbmxp Pept 1490 H, Total Protein 6.6, Albumin 3.6, Globulin 3.0, Albumin/Globulin Ratio 1.2, D-Dimer 868 H 12/09/162043: Lactic Acid 2.1, CBC w Diff NO MAN DIFF REQ, RBC 5.47, MCV 91.1, MCH 30.4, RDW 15.9 H, MPV 7.6, Gran % 81.3 H, Lymphocytes % 10.3 L, Monocytes % 8.0, Eosinophils % 0.2, Basophils % 0.2, Absolute Granulocytes 8.8 H, Absolute Lymphocytes 1.1 L, Absolute Monocytes 0.9 H, Absolute Eosinophils 0, Absolute Basophils 0, PUBS MCHC 33.4 12/09/162025: Bnx-U-Jwphtvldtnr Pept Cancelled 12/09/162014: pH 7.44, pCO2 22 L, pO2 52 L, HCO3 15 L, ABG O2 Sat (Measured) 83.0 L, P-50 (Temp Corrected) N, Carboxyhemoglobin 2.2, O2 Concentration % 6L, Temperature 97.0, O2 Delivery Method NEB, Phlebotomy Draw Site RIGHT RADIAL Microbiology 12/10 2203 URINE ROUT: Legionella Antigen - ORD 12/10 2203 URINE ROUT: Streptococcus pneumoniae Antigen (M - ORD 12/10 2203 LOWER RESP: Respiratory Culture - ORD 12/10 2203 LOWER RESP: Gram Stain - ORD 12/09 2132 NASOPHARYN: Influenza Virus A & B Rapid Smear - COMP 12/09 2116 BLOOD: Blood Culture - RECD 12/10 2043 BLOOD: Blood Culture - RECD 12/09 2018 LOWER RESP: Respiratory Culture - ORD 12/09 2018 LOWER RESP: Gram Stain - ORD Diagnostic Data EKG Results HR -111, III -QS complex CXR Results persistent extensive interstitial disease with superimposed right mid and lower lung zone airspace disease Assessment/Plan Assessment: Patient is a 71-year-old male , former smoker with significant past medical history of GERD, hiatal hernia, anxiety, depression , NSCLC s/p radiation at [facility](2016), DVT (not on anticoagulation ) COPD on 4 liters of oxygen, lung nodule, presented with chief complaints of gradually progressive dyspnea since couple of days. Vital signs at the time of admission temperature 96.1, pulse 72, respiratory rate 40, blood pressure 129/82, SPO2 78% on 6 liters by nasal cannula Chest x-ray- persistent extensive interstitial disease with superimposed right mid and lower lung zone airspace disease Pertinent labs - granulocyte -81.3, d-dimer - ABG -pH, CO2 22, PO2 52, bicarbonate 15, SPO2 83% Plan Acute hypoxemic respiratory failure is secondary to COPD exacerbation can be due to pneumonia or PE * CXR showed persistent extensive interstitial disease * Patient was given nebulization, Solu-Medrol IV in emergency department. * CTA was done and negative for PE * We alexi continue Oxygen supplementation to keep SpO2 >92% * keep head end of bed elevated * we will place pulmonary consult tmr * we dont know exactly status of Lung cancer * we will start him on Inj Solumedrol 40mg IV Q8 * we will continue Inj pantoprazole 40mg IV OD * We will start him on ceftriaxone and azithromycin for CAP Atypical chest pain * we will do serial troponins and two sets are negtive * it is more lilkely GERD * we will continue Inj pantoprazole 40mg IV OD Lactic Acidosis * We will regularly monitor it. * it may be due to infection/dehydration Diet-heart healthy diet DVT prophylaxis-ALP S/Heparin CODE STATUS-full code As Ranked By This Provider Problem List: 1. Acute respiratory failure with hypoxia 2. COPD (chronic obstructive pulmonary disease) 3. ILD (interstitial lung disease) Core Measures/Miscellaneous Acute Coronary Syndrome ACS Diagnosis: No Cerebrovascular Accident CVA/TIA Diagnosis: No Congestive Heart Failure CHF Diagnosis: No Venous Thromboembolism VTE Risk Factors: Age > 40, Cancer/chemo/oth therapy, Immobility, paresis No Mech VTE prophylaxis d/t: No contraindications No VTE Pharm Prophylaxis d/t: No contraindications VTE Diagnosis: No VTE Type: NONE VTE Confirmed by (Test): NONE Severe Sepsis Severe Sepsis Present: No Septic Shock Septic Shock Present: No Miscellaneous Documentation Attending Case Discussed With: ANDERS NESBITT MD Primary Care Physician: JUANA VENEGAS MD Patient sees these Specialists [facility] Dr. Lowery Level of Patient Care: Telemetry SONAL SRINIVASAN 12/09/16 2150: Resident Review Statement Resident Statement: examined this patient, discussed with internet project manager, agreed with internet project manager, discussed with family, reviewed EMR data (avail), discussed with nursing , discussed with case mgmt, reviewed images, amended to note Other Findings: 71-year-old male with a past medical history of COPD on 4 L of oxygen at home, primary NSCLCs of the right upper lobe and right lower lobe, cT2aN0 and cT1bN0, respectively, status post radiation at [facility] in May 2016, GERD, osteoporosis presented to the ED with chief complaint of worsening shortness of breath for the past few days. According to the patient he was discharged from the hospital in August and was able to function normally at home maintaining O2 saturations on 4 L of oxygen via nasal cannula. However within the past couple of weeks or so he's been experiencing progressive shortness of breath and has been having increasing his oxygen requirements up to 5 L with O2 saturations as low as 64%. He states that within the past 3 days his shortness of breath worsened accompanied by worsening cough that since Friday. He states that he is has nonproductive cough, denies any hemoptysis. He states that he may have had this history of sick contacts since he was out on Friday and his symptoms started to worsen symptoms. He denies any fevers per se but does admit to chills occasionally. He denies any history of weight loss. 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 Past medical history significant for COPD, non-small cell lung cancer status post radiation in 05/2016 and GERD. Patient states that he did not see his primary care physician or for his worsening symptoms because he knew that he would be sent to the ER. He states that since yesterday his symptoms worsened to the point where he couldn't tolerate them anymore and so he presented to the ER today. He denies any chest pain, nausea, vomiting, dizziness, lightheadedness, does endorse headaches however denies any abdominal pain, diarrhea and/or constipation. He denies any worsening lower extremity swelling. He does have a history of DVT in the past. He is currently not on any anticoagulation. Patient was discharged from [facility] in 08/29/2016 at that time was admitted for acute hypoxemic respiratory failure thought to be secondary to PNA Vitals at the time of admission blood pressure 129/82, respiratory rate 40, tachycardic to 122, afebrile saturating 78% on 6 L of oxygen via nasal cannula. Physical exam he is alert and oriented 3 and in mild respiratory distress sitting in bed with hyponasal cannula. HEENT revealed PERRLA, dry mucous membranes. Cardiovascular exam was benign with normal S1, S2 pertinent for tachycardia, no murmurs rubs or gallops appreciated. Examination of the neck did not reveal any elevated JVD or cervical lymphadenopathy. Respiratory exam revealed decreased breath sounds bilaterally, no rhonchi or wheezes appreciated. Abdominal exam is benign abdomen soft, nontender, nondistended normal bowel sounds in all 4 quadrants. Examination of lower extreme she did not reveal any edema. Neuro exam was grossly unremarkable. Labs pertinent for normal white blood cell counts 10,800, H&H of 16.6/49.8, platelet count of 1 99,000. Serum chemistries revealed sodium of 141, potassium of 4.1, bicarbonate of 19, anion gap of 15, BUN 28 and creatinine of 0.9. Serum glucose elevated to 129. Lactic acid is pending. LFTs unremarkable with an AST /ALT 15/29, total bili of 1.2, calcium of 9.3 and an alkaline phosphatase of 65. First set of troponin is pending and proBNP is 1490. D-dimer is pending. ABG showed a pH of 7.44, PCO2 of 22, PO2 of 52 and bicarbonate of 15. Chest x-ray showed persistent extensive interstitial disease with superimposed right mid and lower lung zone airspace disease. In the ER he received azithromycin, ceftriaxone, Proventil and Solu-Medrol 125 mg IV 1 Rapid viral influenza A was negative EKG showed ST, HR:114; ID:[id number], left atrial enlargement, no ST-T changes A stress test done in 2013 revealed no evidence of stress-induced myocardial ischemia. Assessment and plan Admit patient to telemetry for continuous pulse ox #Acute on chronic hypoxemic respiratory failure Most likely secondary to COPD exacerbation versus community-acquired pneumonia given its been more than 3 months at his been out of the hospital and radiation pneumonitis usually presents within 6 months vs CHF exacerbation (no JVD, has 1+ bilateral edema, and eleavted pro- BNP) He already received Solu-Medrol 125 mg IV 1. Continue on Solu-Medrol 40 mg IV every 8hrs. Start him on ceftriaxone and azithromycin for possible community-acquired pneumonia given radiological evidence of PNA (unlikely taht it is just a resolution of his previous pneumonia in August) Follow-up lower respiratory culture if any Follow-up urinary antigen for Legionella and strep pneumo Plan consult with Dr. Lowery in a.m. Consider getting an echocardiogram as he did have an elevated BNP, but does not seem to be volume overloaded on physical exam. Will avoid hydrating him with fluids. Rule out ACS with troponins and EKG at 3 AM and 9 AM. CTA to rule out pulmonary embolism. Of note his rapid flu was negative. Meanwhile, admit to telemetry for continuous pulse ox and continue to titrate oxygen to maintain saturations greater than 92%. Dounebs/TRCs Will hold Symbicort for now # Elevated lactic acid - 2/2 respiratory alkalosis? - Will not hydrate him with fluids, given elevated BNP, and indeterminate status of his ejection fraction. #GERD Continue Nexium 40mg daily #Osteoarthritis Continue Vitamin D supplements and pain managemnt as per pathway - DVT prophylaxis Heparin 5000 international units 3 times a day subcutaneous Diet Heart healthy CODE STATUS Full code ANDERS NESBITT 12/10/16 0352: Attending MD Review Statement Attending Statement Attending MD Statement: examined this patient, discuss w/resident/PA/DIRECTOR OF GOLF, agreed w/resident/PA/DIRECTOR OF GOLF, reviewed EMR data (avail), reviewed images, amended to note Attending Assessment/Plan: CC: Acute worsening of shortness of breath PMHx: COPD on home oxygen at 3-5 L, remote history of DVT,?diagnosis of lung cancer s/p radiation Patient complains of worsening shortness of breath since last 2 to 3 wks, present at rest but worse with exertion. Patient endorses dry cough, no sputum production, on and off chest pain, central, substernal, nonradiating, nonexertional. Otherwise no sick contacts, loss of consciousness, palpitations. He occasionally has blurry vision, headache. Patient has chronic leg swelling which has not changed recently. He gradually increased his home oxygen to up to 6 L in last 2-3 days, without much relief and respiratory symptoms so he came to ER. Patient states that his functionality has markedly declined since his radiation therapy. He is on tapering dose of by mouth steroids, currently 2 tablets daily, probably stopping next month. Patient follows up with Dr. Lowery outpatient bull rider, did not follow-up with oncology service at [facility]. Vitals: Afebrile, heart rate 122 on presentation, respiratory rate 40, BP stable. Patient was saturating 79 % on 6 L nasal cannula at presentation, was started on Ventimask and was saturating well at 90%. On examination: a O 3, accessory muscles of respiration in use, moderate respiratory distress. No JVD, neck supple, mucosa dry, no lymphadenopathy, no pharyngeal congestion. Right pupil dilated as compared to left, equally reacting, extraocular muscles intact, no other focal neurological deficits. CVS: S1-S2 heard RRR. RS: Diffuse decreased air entry bilaterally. Abdomen: Soft, NT, ND, bowel sounds present. Patient had pitting edema bilateral feet right more than left. Labs show WBC of 10.8 with granulocytes 81%. Bicarbonate 19, BUN 28, proBNP 336, d-dimer 1490, lactate 2.1, troponin 0.03 ABG showed pH 7.44/22/52/15 on 6 L NC. CXR: Persistent extensive interstitial disease with superimposed right mid and lower lung zone airspace disease. CTA chest: No CT evidence for pulmonary embolism. Stable appearance of diffuse chronic interstitial disease superimposed upon emphysema. The appearance of opacification in the right lung is relatively stable. A and P #1 acute on chronic hypoxic respiratory failure: Significantly tachycardic, tachypneic on presentation, in the setting of acute worsening of respiratory symptoms, history of malignancy pneumonia and pulmonary embolism ruled out with CTA. CT mentions about stable interstitial disease with superimposed emphysema which may be contribution to symptoms. Patient does have some leukocytosis with neutrophilia which may be probably secondary to his chronic steroid use, but given cough, respiratory symptoms and hypoxia currently, admit to telemetry floor, continue with IV antibiotics with ceftriaxone and azithromycin, consult pulmonology in a.m., continue oxygen support, continue IV methylprednisolone 40 mg every 8 hour, scheduled and when necessary albuterol and Atrovent, sputum culture, blood culture. Patient lactic acidosis probably is secondary to hypoxia. Trend troponin, serial EKG, telemetry monitoring #2 patient was suspected to have 2 independent primaries in lung, not biopsy- proven, status postradiation (suspected non-small cell cancer), patient did not follow up with oncologist after his last radiation treatment and says that has been cleared from them. CTA did not mention any progressive worsening of lesions , in fact shows interstitial disease, await pulmonology opinion for further workup #3: DVT prophylaxis with Lovenox, adequate pain control. #4 patient's proBNP is elevated as compared to past, has pitting edema bilateral lower extremities (chronic according to him), no JVP, obtain 2-D echo for pulmonary hypertension #5 patient's pupils are unequal right pupil more dilated than left, extraocular muscles intact, no ptosis, ? Unclear significance, ? MRI brain Patient mentions that he does not want to be a vegetative state on life support but wants resuscitations done and does is full code. He has a copy of living will at home and his daughter has a copy as well.
--- NOTE | 2016-12-09 21:53 | NUR ---
CRITICAL TEST RESULTS [id number] YULISA FOWLER 71 M TESTS AND RESULTS: LACTIC ACID 2.1 Results received and read back by: TIMI TREVIZO Results received date and time: 12/09/162152 The following provider was notified of the results, and read the results back: MD VALLADARES Notified date and time: 12/09/16 at 2152
--- NOTE | 2016-12-09 22:04 | NUR ---
PT RESTING COMFORTABLY AT THIS TIME. REMAINS ON VENTI MASK AT 55%. REPORTS SOB WITH EXERTION. O2 SAT 95% AT THIS TIME. AZITHROMYCIN INFUSING.
--- NOTE | 2016-12-09 22:07 | NUR ---
PT TO ROOM 185 BED 1
--- NOTE | 2016-12-09 22:19 | NUR ---
REPORT TO KAZ PABON ON
[2016-12-09 23:03] VITALS: BP 98/60
--- NOTE | 2016-12-09 23:49 | CT SCAN REPORT ---
EXAMINATION: CT PULMONARY EMBOLISM STUDY CLINICAL INFORMATION: Shortness of breath, elevated d-dimer. COMPARISON: Same day chest radiograph. Chest CTA from July 2016. TECHNIQUE: Contiguous helical images of the chest were obtained following the administration of IV contrast. Multiplanar reconstructions were performed. MIPS were obtained and reviewed. DLP: 590 mGy-cm. CONTRAST: 85 mL of Optiray 320 were demonstrated without incident. FINDINGS: The heart is of normal size. There is no pericardial effusion. The great vessels are unremarkable. Specifically, there is no pulmonary arterial filling defect. There is no CT evidence for pulmonary embolism. There are no chest wall masses. Review of lung windows demonstrates that there are neither pleural effusions nor pneumothoraces. Again identified is emphysema, predominantly within the upper lobes. The appearance of extensive interstitial disease within the right lung is not significantly changed. Interstitial disease within the left upper lobe is also stable. I doubt the presence of significant superimposed acute airspace disease. Limited evaluation of the upper abdomen demonstrates that the liver is of normal size and attenuation without focal lesions. Normal adrenal glands are identified. A hiatal hernia is present. IMPRESSION: No CT evidence for pulmonary embolism. Stable appearance of diffuse chronic interstitial disease superimposed upon emphysema. The appearance of opacification in the right lung is relatively stable.
--- NOTE | 2016-12-10 03:56 | Admission Certification ---
Admission Certification Certification Statement - As attending physician, I certify that at the time of - admission, based on clinical presentation, severity of - symptoms, need for further diagnostic testing and - therapeutic interventions, and risk of adverse outcomes - without in-hospital treatment, in my clinical assessment, - this patient requires an acute hospital stay for a minimum - of two nights or longer. I have also considered psychsocial - factors such as support system, advanced age, financial - issues, cognitive issues, and failed out-patient treatments, - past re-admission history, safety of patient, and lack of - compliance as applicable. Specific rationale supporting this admission is: Acute on chronic hypoxic respiratory failure, severe emphysema with interstitial lung disease with exacerbation
--- NOTE | 2016-12-10 07:24 | PN- Housestaff ---
SHAE CORTÉS,[facility] 12/10/16 0724: Subjective Follow-up For: 1. Acute on Chronic hypoxic respiratory failure 2. Acute pneumonitis secondary to radiation 3. Anion Gap Metabolic Acidosis 4. History of NSCLC S/P radiation therapy Tele-Events Since Last Visit: SR-ST 75 - 109, no events Subjective: The patient reported with relatively patulous compared to how he felt when he was first admitted. He still continues to have shortness of breath especially exertional and was unable to complete a full sentence without getting short of breath. He has persistent chronic cough, which is nonproductive, did not change from baseline though. He denies chest pain, palpitations, nausea vomiting, abdominal pain, fever or chills. Review of Systems Constitutional: Reports: see HPI. Cardiovascular: Reports: no symptoms. Respiratory: Reports: see HPI, cough, short of breath, wheezing. Gastrointestinal: Reports: no symptoms. Genitourinary: Reports: no symptoms. Musculoskeletal: Reports: no symptoms. Objective Last 24 Hrs of Vital Signs/I&O Vital Signs Date Time Temp Pulse Resp B/P Pulse O2 O2 Flow FiO2 Ox Delivery Rate 12/10 0804 98.2 91 19 128/83 92 Nasal 6.0L Cannula 12/10 0800 92 Nasal 6.0L Cannula 12/10 0000 94 Venti Mask 55% 12/09 2310 93 Venti Mask 55% 12/09 2303 97.7 104 20 98/60 91 Venti Mask 55% 12/09 2214 100 22 115/76 95 Venti Mask 55% 12/09 2205 95 Venti Mask 55% 12/09 2024 96.1 122 40 129/82 78 Nasal 6.0L Cannula 12/09 2020 6.0L Intake & Output 12/10 1600 12/10 0800 12/10 0000 Intake Total 240 300 Output Total 600 Balance -360 300 Intake, IV 300 Intake, Oral 240 Output, Urine 600 Patient 235 lb Weight Physical Exam General Appearance: Alert, Oriented X3, Cooperative, Mild Distress Cardiovascular: Regular Rate, Normal S1, Normal S2, No Murmurs Lungs: bilateral diffuse wheezing Abdomen: Normal Bowel Sounds, Soft, No Tenderness, No Hepatospenomegaly Neurological: Normal Speech, Strength at 5/5 X4 Ext, Normal Tone, Sensation Intact Extremities: Normal Pulses, trace ankle edema, clubbing of fingers Current Medications: Current Medications Sig/Rosetta Start time Last Medication Dose Route Stop Time Status Admin Acetaminophen 650 MG Q6P PRN 12/09 2245 AC PO Albuterol Sulfate 3 ML TID 12/10 1000 AC 12/10 INH 0920 Albuterol Sulfate 3 ML ONCE ONE 12/09 2030 DC 12/09 INH 12/09 Alendronate Sodium 70 MG QWED 12/11 0700 AC PO Alprazolam 0.5 MG DAILY NEEDED PRN 12/10 1000 AC PO 12/17 0959 Azithromycin 500 MG 2200 12/10 2200 AC Sodium Chloride 250 ML IV Azithromycin 500 MG DAILY 12/10 1000 DC Sodium Chloride 250 ML IV Azithromycin 500 MG ONCE ONE 12/09 2045 DC 12/09 Sodium Chloride 250 ML IV 12/09 2144 2148 Budesonide/ 2 PUF BID 12/10 1000 AC 12/10 Formoterol Fumarate INH 1218 Calcium Carbonate 1,250 MG DAILY 12/10 1000 AC 12/10 PO 1217 Ceftriaxone Sodium 1,000 MG 2200 12/10 2200 AC IV 12/11 2159 Ceftriaxone Sodium 1,000 MG DAILY 12/10 1000 DC IV 12/11 0959 Ceftriaxone Sodium 0 .STK-MED ONE 12/09 2136 DC .ROUTE Ceftriaxone Sodium 1,000 MG ONCE ONE 12/09 2100 DC 12/09 IV 12/09 210 2148 Cholecalciferol 1,000 IU DAILY 12/10 1000 AC 12/10 PO 1021 Cyanocobalamin 1,000 MCG QMON 12/16 0700 AC PO Furosemide 20 MG ONCE ONE 12/09 2345 CAN IV 12/09 2346 Heparin Sodium 5,000 UNIT Q8 12/10 0600 AC 12/10 (Porcine) SC 0559 Ibuprofen 400 MG TID PRN 12/09 2245 AC PO Ipratropium [place] 2.5 ML TID 12/10 1000 DC 12/10 INH 0920 Methylprednisolone 40 MG Q8 12/10 0600 AC 12/10 IV 0559 Methylprednisolone 0 .STK-MED ONE 12/09 2030 DC .ROUTE Methylprednisolone 125 MG ONCE ONE 12/09 2030 DC 12/09 IV 12/09 Omeprazole 40 MG DAILY AC 12/10 0945 CAN PO Omeprazole 40 MG DAILY AC 12/10 0700 AC 12/10 PO 0600 Oxycodone HCl 10 MG Q6P PRN 12/09 2245 AC 12/10 PO 1031 Sodium Chloride 1,000 ML Q10H 12/10 1400 AC IV 12/10 2359 Tiotropium [place] 1 PUF DAILY 12/10 1000 AC INH Tiotropium [place] 1 PUF DAILY 12/10 1000 CAN INH Trimethoprim/ 1 TAB MoWeFr@1000 12/11 1000 AC Sulfamethoxazole PO Last 24 Hrs of Lab/Regan Results Last 24 Hrs of Labs/Mics: Laboratory Tests 12/10/16 1033: Anion Gap 17 H, Estimated GFR > 60, BUN/Creatinine Ratio 27.5 H, Troponin I 0.02 12/10/16 0900: Troponin I Cancelled 12/10/16 0853: Lactic Acid 5.3 H, CBC w Diff NO MAN DIFF REQ, RBC 5.60, MCV 90.7, MCH 30.4, RDW 15.6 H, MPV 8.0, Gran % 88.4 H, Lymphocytes % 8.8 L, Monocytes % 2.8, Eosinophils % 0, Basophils % 0 L, Absolute Granulocytes 8.2 H, Absolute Lymphocytes 0.8 L, Absolute Monocytes 0.3, Absolute Eosinophils 0, Absolute Basophils 0, PUBS MCHC 33.5 12/10/16 0330: Lactic Acid 2.3 H, Troponin I 0.04 12/09/16 2332: Lactic Acid 2.6 H 12/09/167: Anion Gap 15, Estimated GFR > 60, BUN/Creatinine Ratio 31.1 H, Glucose 129 H, Calcium 9.3, Total Bilirubin 1.2, AST 18, ALT 29, Alkaline Phosphatase 65, Troponin I 0.03, Kns-Y-Ljhknhynoyt Pept 1490 H, Total Protein 6.6, Albumin 3.6, Globulin 3.0, Albumin/Globulin Ratio 1.2, D-Dimer 868 H 12/09/162043: Lactic Acid 2.1, CBC w Diff NO MAN DIFF REQ, RBC 5.47, MCV 91.1, MCH 30.4, RDW 15.9 H, MPV 7.6, Gran % 81.3 H, Lymphocytes % 10.3 L, Monocytes % 8.0, Eosinophils % 0.2, Basophils % 0.2, Absolute Granulocytes 8.8 H, Absolute Lymphocytes 1.1 L, Absolute Monocytes 0.9 H, Absolute Eosinophils 0, Absolute Basophils 0, PUBS MCHC 33.4 12/09/162025: Ofn-P-Bsvhvohbxth Pept Cancelled 12/09/162014: pH 7.44, pCO2 22 L, pO2 52 L, HCO3 15 L, ABG O2 Sat (Measured) 83.0 L, P-50 (Temp Corrected) N, Carboxyhemoglobin 2.2, O2 Concentration % 6L, Temperature 97.0, O2 Delivery Method NEB, Phlebotomy Draw Site RIGHT RADIAL Microbiology 12/11 399 URINE ROUT: Legionella Antigen - COMP 12/11 399 URINE ROUT: Streptococcus pneumoniae Antigen (M - COMP 12/10 2203 LOWER RESP: Respiratory Culture - COLB 12/10 2203 LOWER RESP: Gram Stain - COLB 12/09 2132 NASOPHARYN: Influenza Virus A & B Rapid Smear - COMP 12/09 2116 BLOOD: Blood Culture - RES 12/10 2043 BLOOD: Blood Culture - RES 12/09 2018 LOWER RESP: Respiratory Culture - COLB 12/09 2018 LOWER RESP: Gram Stain - COLB Assessment/Plan Assessment: 71-year-old man with a past medical history of smoking with significant past history of GERD, anxiety and depression, non-small cell lung cancer status post radiation pnemonitis 2016, history of radiation pneumonitis, history of DVT but not on anticoagulation, COPD on 4 L of home oxygen, history of lung nodule, history of chronic respiratory failure, now presents with progressive dyspnea especially on exertion since the past few days. Recently he was seen by Dr. Lowery as an outpatient, and he was being tapered off of his prolonged by mouth steroid taper, had increased requirement of oxygen from 4 L to 6 L and oxygen saturation decreased to as low as 64%. He is being admitted for acute on chronic hypoxic respiratory failure, COPD exacerbation and radiation pneumonitis. Assessment and plan: 1. Acute on Chronic hypoxic respiratory failure secondary to COPD exacerbation and radiation pneumonitis: - Patient has a history of chronic hypoxic respiratory failure, very severe COPD , on 4 liters of home oxygen, and a prolonged steroid taper and was started in July 2016. He was tapering his steroids every monthly, and currently was on 20 mg daily to maintain when he was supposed to transition to 10 mg daily. Unfortunately started developing shortness of breath when he was being tapered off of steroids and had to be admitted for acute on chronic hypoxic respiratory failure, with oxygen as low as 64% on 4 L of oxygen that she normally uses at home. CT ruled out pulmonary embolism matures baseline interstitial lung disease. - We'll continue oxygen at 6 L or more required to keep saturation between 90-92 % - For now will treat him with IV steroids 40 mg every 8 hours - Strict TRC nebs [id number] - Continue with Symbicort - Continue with daily Spiriva - Although the patient does not have pneumonia, but the patient has radiation pneumonitis. The patient received IV azithromycin ceftriaxone, but tomorrow will transition to by mouth moxifloxacin for a total of 7 days - Patient is medically compromised with history of lung cancer status post radiation and interstitial lung disease, therefore will start Bactrim DS one tablet every Friday for PCP prophylaxis - As patient is at high doses of steroids, has been well, will start him on Fosamax, vitamin D and calcium. - Pulmonology consult with Dr. Lowery 2. Anion Gap Metabolic Acidosis/Lactic acidosis: - Patient presented with a gap of 17, bicarbonate 19, evaluation with a July 28 4, PCO2 22 by mouth 252 and bicarbonate of 15. - Likely secondary to his respiratory failure - We'll repeat ABGs tomorrow - We'll continue with current management - Patient has a lactic acid of 2.6 cm to 5.3, will hydrate with 1 bag of normal saline, monitor his respiratory status and recheck lactic acid 3. History of NSCLC S/P radiation therapy - Patient has a history of non-small cell lung cancer status post radiation therapy at [facility] in 2016 - Also has a history of radiation pneumonitis and multiple admissions in the past requiring high doses of steroids - Continue current therapy - PCP Prophylaxis with Bactrim 4. GERD/hiatal hernia: - We'll continue with omeprazole 40 mg by mouth daily 5. Osteoarthritis: - We'll continue with vitamin D - We'll add Fosamax and PO calcium 6. Anxiety/depression: We'll continue with Xanax as needed 7. Heart healthy diet 8. Due to prophylaxis with subcutaneous heparin 9. Full CODE STATUS Problem List: 1. ILD (interstitial lung disease) 2. COPD (chronic obstructive pulmonary disease) 3. Acute respiratory failure with hypoxia 4. Lung cancer 5. Lung nodules Pain Ratin Pain Location: none Pain Goal: Remain pain free Pain Plan: When necessary Tylenol, ibuprofen and Percocet, Proventil 1-3, 4-6 and 7-10 Tomorrow's Labs & Rationales: BEP to monitor her acidosis DVT/Prophylaxis: pharmacological RAHEEL LIZAMA MD 12/10/161956: Attending MD Review Statement Attending Statement Attending MD Statement: examined this patient, discuss w/resident/PA/CUSTOMER SERVICE ADVOCATE, agreed w/resident/PA/CUSTOMER SERVICE ADVOCATE, reviewed EMR data (avail) Attending Assessment/Plan: Patient still very short of breath on minimal exertion, and experiencing some shortness of breath at rest. Saturating well on supplemental oxygen. Lactate was decreasing to 2.2, but increased sharply to 5.6 without change in symptoms, still afebrile, not hypotensive. Will continue IV Solumedrol, give IV fluids, continue antibiotics, trend lactate to normal, follow pulmonary recommendations, DVT PPx
[2016-12-10 08:04] VITALS: BP 128/83
--- NOTE | 2016-12-10 09:18 | Cons- Pulmonary ---
General Information and HPI Consulting Request Date of Consult: 12/10/16 Requested By: Med team History of Present Illness: Patient is a 71-year-old male , former smoker with significant past medical history of GERD, hiatal hernia, anxiety, depression , NSCLC s/p radiation at [facility](2016), history of radiation pneumonitis, DVT (not on anticoagulation ) COPD on 4 liters of oxygen, lung nodule, presented with chief complaints of gradually progressive dyspnea since couple of days. I want to weeks ago he started having gradually progressive dyspnea, especially on exertion. Even his oxygen requirement has increased from 4 liters to 6 liters. His oxygen saturation decreased down to 64%. Seems more than 2 days, he is getting worse and worse. He is feeling generalized weakness along with tingling and numbness in limbs. He denies for taking any treatment. He was also complaining of cough since last 2 months, which was dry in nature and gotten worse since couple of days. He also has episodes of hot spells and chills around a week ago. His appetite has been decreased. He feels more thirsty , although his fluid intake is adequate. He is also having episodes of alternating diarrhea and constipation. He was also c/o chest pain, which he thinks more related to the hurt burn. Allergies/Medications Allergies: Coded Allergies: NO KNOWN ALLERGIES (05/16/14) Home Med List: Albuterol Sulfate (Proventil Hfa) 90 MCG HFA.AER.AD 2 PUF INH PRN EMPHYSEMA ( Reported) Budesonide/Formoterol Fumarate (Symbicort 160-4.5 Mcg Inhaler) 160 MCG-4.5 MCG/ ACTUATION HFA.AER.AD 2 PUF INH TID EMPHYSEMA (Reported) Cholecalciferol (Vitamin D3) (Vitamin D) 2,000 UNIT TABLET 1 TAB PO DAILY SUPPLEMENT (Reported) Cyanocobalamin (Vitamin B-12) 1,000 MCG TABLET 1 TAB PO QMON SUPPLEMENT ( Reported) Hydrocodone/Acetaminophen (Hydrocodon-Acetaminophen 5-300) 5 MG-300 MG TABLET 1 TAB PO BID PRN PAIN (Reported) Naproxen Sodium (Aleve) 220 MG TABLET 2 TAB PO DAILY PAIN (Reported) Omeprazole 40 MG CAPSULE.DR 1 CAP PO DAILY GI (Reported) Prednisone 10 MG TABLET 20 MG PO DAILY STEROID (Reported) Review of Systems Review of Systems Constitutional: Reports: see HPI. 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 Home Services at Home: Oxygen Primary Language: Maori Smoking Status: Former Smoker ETOH Use: occasional use Living Will? unknown Functional Ability ADLs Independent: dressing, eating, toileting, bathing. Ambulation: independent IADLs Independent: shopping, housework, finances, food prep, telephone, transportation , medication admin. Exam & Diagnostic Data Last 24 Hrs of Vital Signs/I&O Vital Signs Date Time Temp Pulse Resp B/P Pulse O2 O2 Flow FiO2 Ox Delivery Rate 12/10 0804 98.2 91 19 128/83 92 Nasal 6.0L Cannula 12/10 0000 94 Venti Mask 55% 12/09 2310 93 Venti Mask 55% 12/09 2303 97.7 104 20 98/60 91 Venti Mask 55% 12/09 2214 100 22 115/76 95 Venti Mask 55% 12/095 95 Venti Mask 55% 12/09 2024 96.1 122 40 129/82 78 Nasal 6.0L Cannula 12/09 2020 6.0L Intake & Output 12/10 1600 12/10 0800 12/10 0000 Intake Total 240 300 Output Total 600 Balance -360 300 Intake, IV 300 Intake, Oral 240 Output, Urine 600 Patient 235 lb Weight Last 48 Hrs of Labs/Regan: Laboratory Tests 12/10/16 0900: Troponin I Cancelled 12/10/16 0853: Lactic Acid Pending, CBC w Diff Pending, WBC Pending, RBC Pending, Hgb Pending, Hct Pending, MCV Pending, MCH Pending, RDW Pending, Plt Count Pending, MPV Pending, PUBS MCHC Pending 12/10/16 0330: Lactic Acid 2.3 H, Troponin I 0.04 12/09/16 2332: Lactic Acid 2.6 H 12/09/16 2117: Anion Gap 15, Estimated GFR > 60, BUN/Creatinine Ratio 31.1 H, Glucose 129 H, Calcium 9.3, Total Bilirubin 1.2, AST 18, ALT 29, Alkaline Phosphatase 65, Troponin I 0.03, Ngw-N-Xunpswqufmm Pept 1490 H, Total Protein 6.6, Albumin 3.6, Globulin 3.0, Albumin/Globulin Ratio 1.2, D-Dimer 868 H 12/09/162043: Lactic Acid 2.1, CBC w Diff NO MAN DIFF REQ, RBC 5.47, MCV 91.1, MCH 30.4, RDW 15.9 H, MPV 7.6, Gran % 81.3 H, Lymphocytes % 10.3 L, Monocytes % 8.0, Eosinophils % 0.2, Basophils % 0.2, Absolute Granulocytes 8.8 H, Absolute Lymphocytes 1.1 L, Absolute Monocytes 0.9 H, Absolute Eosinophils 0, Absolute Basophils 0, PUBS MCHC 33.4 12/09/162025: Zcb-P-Tsqvrdtmncc Pept Cancelled 12/09/162014: pH 7.44, pCO2 22 L, pO2 52 L, HCO3 15 L, ABG O2 Sat (Measured) 83.0 L, P-50 (Temp Corrected) N, Carboxyhemoglobin 2.2, O2 Concentration % 6L, Temperature 97.0, O2 Delivery Method NEB, Phlebotomy Draw Site RIGHT RADIAL Microbiology 12/11 399 URINE ROUT: Legionella Antigen - COMP 12/11 399 URINE ROUT: Streptococcus pneumoniae Antigen (M - COMP 12/09 2132 NASOPHARYN: Influenza Virus A & B Rapid Smear - COMP Assessment/Plan Impression/Plan: Chest ct There are no chest wall masses. Review of lung windows demonstrates that there are neither pleural effusions nor pneumothoraces. Again identified is emphysema, predominantly within the upper lobes. The appearance of extensive interstitial disease within the right lung is not significantly changed. Interstitial disease within the left upper lobe is also stable. I doubt the presence of significant superimposed acute airspace disease. Limited evaluation of the upper abdomen demonstrates that the liver is of normal size and attenuation without focal lesions. Normal adrenal glands are identified. A hiatal hernia is present. IMPRESSION: No CT evidence for pulmonary embolism. Stable appearance of diffuse chronic interstitial disease superimposed upon emphysema. The appearance of opacification in the right lung is relatively stable. DICTATED BY: CHAYO HAMPTON MD DATE/TIME DICTATED:12/09/163 Physical Exam General Appearance Alert, Oriented X3, Cooperative, Mild Distress Skin No Rashes, No Breakdown HEENT Atraumatic, PERRLA, EOMI, dilated right and constricted left pupil Neck Supple, JVD+ Cardiovascular Normal S1, Normal S2, tachycardia Lungs decresed air entry, crackles Abdomen Soft, No Tenderness, distended Neurological Normal Speech Extremities No Clubbing, No Cyanosis, mild edema, clubbing+ Vascular Normal Pulses, Pulses Symmetrical This is a 71-year-old gentleman with very advanced emphysema with previous clinical diagnosis of 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 His issues include * Acute hypoxic resp failure due to acute pneumonitis due to prob post radiation in the right side which is worse as he is being tapered off prednisone, with sig copd * XRT pneumonitis * No clinical evidence suggestive of invasive Aspergillus or pcp (pt was on pcp prophylaxis uptill recently) * Severe emphysema with worsening performance status * Hiatal hernia with GERD * Anxiety/depression. Recommendation * COnt iv steroids, and transition to prednisone 60 mg qd for 2 weeks and then keep hiim on 50 mg till he sees me in the office * Start po vit d 1000 units and one calcium pill daily * Start fosomax 70 mg q weekly * Bactrim ds for pcp prophylaxis (9ne ds tablet on fri/fri/friday) * PO abx after tommorow with moxi for a total abx of 7 days * Continue his current bronchodilator * Strict diet while on steroids, we will prob use imuran as an out pt * Keep sao2 at 91-92 as xrt pna will get worsened due to hyperoxyic lung injury * omeprazole po qd * cont symbicort * Start spiriva daily * Strict sugar control * Low dose xanax prn * Will follow closely Dr Howard/Frank covering next week Consult Acknowledgment - Thank you for your consult request.
[2016-12-10 10:38] LABS: ABSOLUTE BASOPHIL COUNT 0 /CUMM (0.0-0.2); ABSOLUTE EOSINOPHIL COUNT 0 /CUMM (0.0-0.7); ABSOLUTE GRANULOCYTE CT 8.2 /CUMM (1.4-6.5); ABSOLUTE LYMPH COUNT 0.8 /CUMM (1.2-3.4); ABSOLUTE MONOCYTE COUNT 0.3 /CUMM (0.10-0.60); BASOPHIL % 0 % (0.0-2.0); EOSINOPHIL % 0 % (0-5); HEMATOCRIT 50.8 % (42-52); MEAN CORPUSCULAR HGB 30.4 PG (27.0-31.0); MEAN CORPUSCULAR HGB CONC 33.5 G/DL (33.0-37.0); MEAN CORPUSCULAR VOLUME 90.7 FL (80.0-94.0); RBC DISTRIBUTION WIDTH 15.6 % (11.5-14.5); WHITE BLOOD CELL COUNT 9.3 /CUMM (4.8-10.8)
[2016-12-10 11:18] LABS: GRANULOCYTE % 88.4 % (42.2-75.2); PLATELET COUNT 219 /CUMM (130-400)
[2016-12-11 06:42] VITALS: BP 126/88
--- NOTE | 2016-12-11 07:19 | PN- Housestaff ---
SHAE CORTÉS,[facility] 12/11/16 0719: Subjective Follow-up For: 1. Acute on Chronic hypoxic respiratory failure secondary to advanced COPD 2. Acute pneumonitis secondary to radiation 3. Anion Gap Metabolic Acidosis - resolved 4. History of NSCLC S/P radiation therapy Subjective: The patient reported marked improvement today, he was able to walk to the bathroom without significant dyspnea that he experienced the past couple of days , wheezing has reduced, he still has dry cough which is at baseline, feeling more comfortable at 6 L of oxygen however very apprehensive about plan after discharge boxes at that time his cotton admitted for similar complaints due to his advanced lung disease. Denies chest pain, palpitations, nausea vomiting diarrhea, abdominal pain, urinary symptoms, fever or chills. Review of Systems Constitutional: Reports: see HPI. Cardiovascular: Denies: chest pain, orthopena, palpitations, peripheral edema. Respiratory: Reports: cough, short of breath, wheezing. Gastrointestinal: Reports: no symptoms. Genitourinary: Reports: no symptoms. Musculoskeletal: Reports: no symptoms. Objective Last 24 Hrs of Vital Signs/I&O Vital Signs Date Time Temp Pulse Resp B/P B/P Pulse O2 O2 Flow FiO2 Mean Ox Delivery Rate 12/11 0829 96 Nasal 6.0L Cannula 12/11 0642 98.0 83 20 126/88 92 Nasal 6.0L Cannula 12/11 0000 Nasal 6.0L Cannula 12/10 1923 92 Nasal 6.0L Cannula 12/10 1600 90 Nasal 6.0L Cannula 12/10 1514 Nasal 2.0L Cannula Intake & Output 12/11 1600 12/11 0800 12/11 0000 Intake Total 800 345 Output Total 200 Balance 600 345 Intake, IV 800 225 Intake, Oral 120 Output, Urine 200 Physical Exam General Appearance: Alert, Oriented X3, Cooperative, No Acute Distress Cardiovascular: Regular Rate, Normal S1, Normal S2, No Murmurs Lungs: bilateral wheezing, improved from yesterday Extremities: Normal Pulses, trace ankle edema, chronic, has compression stockings Current Medications: Current Medications Sig/Rosetta Start time Last Medication Dose Route Stop Time Status Admin Acetaminophen 650 MG Q6P PRN 12/09 2245 AC PO Albuterol Sulfate 3 ML EVERY 4 HRS/AWAKE 12/10 1600 AC 12/11 INH 0827 Albuterol Sulfate 3 ML TID 12/10 1000 DC 12/10 INH 1433 Alendronate Sodium 70 MG QWED 12/11 0700 AC 12/11 PO 0552 Alprazolam 0.5 MG DAILY NEEDED PRN 12/10 1000 AC 12/11 PO 12/17 0959 0946 Azithromycin 500 MG 2200 12/10 2200 DC 12/10 Sodium Chloride 250 ML IV 12/10 2355 2217 Azithromycin 500 MG DAILY 12/10 1000 DC Sodium Chloride 250 ML IV Budesonide/ 2 PUF BID 12/10 1000 AC 12/11 Formoterol Fumarate INH 0942 Calcium Carbonate 1,250 MG DAILY 12/10 1000 AC 12/11 PO 0942 Ceftriaxone Sodium 1,000 MG 2200 12/10 2200 DC 12/10 IV 12/10 2355 2217 Ceftriaxone Sodium 1,000 MG DAILY 12/10 1000 DC IV 12/11 0959 Cholecalciferol 1,000 IU DAILY 12/10 1000 AC 12/11 PO 0942 Cyanocobalamin 1,000 MCG QMON 12/16 0700 AC PO Heparin Sodium 5,000 UNIT Q8 12/10 0600 AC 12/11 (Porcine) SC 0551 Ibuprofen 400 MG TID PRN 12/09 2245 AC PO Ipratropium [place] 2.5 ML TID 12/10 1000 DC 12/10 INH 0920 Methylprednisolone 40 MG Q8 12/10 0600 AC 12/11 IV 0552 Moxifloxacin HCl 400 MG DAILY 12/11 1000 AC 12/11 PO 12/17 1001 0942 Omeprazole 40 MG DAILY AC 12/10 0945 CAN PO Omeprazole 40 MG DAILY AC 12/10 0700 AC 12/11 PO 0552 Oxycodone HCl 10 MG Q6P PRN 12/09 2245 AC 12/11 PO 0946 Patient Medication 1 ED .STK-MED ONE 12/10 1436 DC Teaching ED 12/10 1437 Sodium Chloride 1,000 ML ONCE ONE 12/10 2345 DC 12/10 IV 12/11 0944 2340 Sodium Chloride 1,000 ML Q10H 12/10 1400 DC 12/10 IV 12/10 2359 1418 Tiotropium [place] 1 PUF DAILY 12/10 1000 AC 12/11 INH 0942 Trimethoprim/ 1 TAB MoWeFr@1000 12/11 1000 AC 12/11 Sulfamethoxazole PO 0942 Last 24 Hrs of Lab/Regan Results Last 24 Hrs of Labs/Mics: Laboratory Tests 12/11/16 0300: Lactic Acid 2.1 12/10/16 2145: Lactic Acid 2.6 H 12/10/16 1500: Lactic Acid 2.9 H 12/10/16 1033: Anion Gap 17 H, Estimated GFR > 60, BUN/Creatinine Ratio 27.5 H, Troponin I 0.02 Assessment/Plan Assessment: 71-year-old man with a past medical history of smoking with significant past history of GERD, anxiety and depression, non-small cell lung cancer status post radiation pnemonitis 2016, history of radiation pneumonitis, history of DVT but not on anticoagulation, COPD on 4 L of home oxygen, history of lung nodule, history of chronic respiratory failure, now presents with progressive dyspnea especially on exertion since the past few days. Recently he was seen by Dr. Lowery as an outpatient, and he was being tapered off of his prolonged by mouth steroid taper, had increased requirement of oxygen from 4 L to 6 L and oxygen saturation decreased to as low as 64%. He is being admitted for acute on chronic hypoxic respiratory failure, COPD exacerbation and radiation pneumonitis. Assessment and plan: 1. Acute on Chronic hypoxic respiratory failure secondary to COPD exacerbation and radiation pneumonitis: - Patient has a history of chronic hypoxic respiratory failure, very severe COPD , on 4 liters of home oxygen, and a prolonged steroid taper that was started in July 2016. He was tapering his steroids Qmonthly; currently was on 20 mg daily and was supposed to transition to 10 mg daily. Unfortunately he started developing shortness of breath when he was being tapered off of steroids and had to be admitted for acute on chronic hypoxic respiratory failure, with oxygen as low as 64% on 4 L of oxygen that he normally uses at home. CT ruled out pulmonary embolism and shows baseline interstitial lung disease. - Currently on 6 L of oxygen and maintaining saturations between 90-92%, will continue on the same level for now - Will continue with IV steroids 40 mg every 8 hours amd transition to PO 60 mg as recommended by Dr. Lowery - Strict [facility] nebs [id number] - Continue with Symbicort - Continue with daily Spiriva - Although the patient does not have pneumonia, but the patient has radiation pneumonitis. The patient received IV azithromycin ceftriaxone, transitioned to by mouth moxifloxacin for a total of 7 days today - Continue with Bactrim DS one tablet every Friday for PCP prophylaxis - As patient is at high doses of steroids, has been well, will start him on Fosamax, vitamin D and calcium. - Willl follow Pulm 2. Anion Gap Metabolic Acidosis/Lactic acidosis: - Patient presented with a gap of 17, bicarbonate 19, evaluation with a July 28 4, PCO2 22 by mouth 252 and bicarbonate of 15. - Patient has a lactic acid of 2.6 cm to 5.3, which normalized to 2 after 2 bags of IV NS 3. History of NSCLC S/P radiation therapy - Patient has a history of non-small cell lung cancer status post radiation therapy at [facility] in 2016 - Also has a history of radiation pneumonitis and multiple admissions in the past requiring high doses of steroids - Continue current therapy - PCP Prophylaxis with Bactrim 4. GERD/hiatal hernia: - We'll continue with omeprazole 40 mg by mouth daily 5. Osteoarthritis: - We'll continue with vitamin D, Fosamax and PO calcium 6. Anxiety/depression: - We'll continue with Xanax as needed 7. Heart healthy diet 8. Due to prophylaxis with subcutaneous heparin 9. Full CODE STATUS Problem List: 1. Acute respiratory failure with hypoxia 2. ILD (interstitial lung disease) 3. COPD exacerbation 4. Lung cancer 5. Lung nodules Pain Ratin Pain Location: None Pain Goal: Remain pain free Pain Plan: PRN Tylenol and Percocet Tomorrow's Labs & Rationales: Not needed DVT/Prophylaxis: pharmacological Consulting Request: Consulting Specialty: Pulmonary Disease Consulting Physician: Dr. Lowery Reason for Consult: Acute hypoxic resp failure Discharge Plan Discharge Disposition: home Stable for Discharge? No DELTA CORTÉS,[facility] 12/11/16 1227: Attending MD Review Statement Attending Statement Attending MD Statement: examined this patient, discuss w/resident/PA/ANODE ADJUSTER, agreed w/resident/PA/ANODE ADJUSTER, discussed with family, reviewed EMR data (avail), discussed with nursing, reviewed images, amended to note Attending Assessment/Plan: Patient seen and examined, feels slightly better but gets short of breath with very minimal exertion. Requiring 6 L of oxygen and he is still on high-dose IV steroids. Vital Signs Date Time Temp Pulse Resp B/P B/P Pulse O2 O2 Flow FiO2 Mean Ox Delivery Rate 12/11 0829 96 Nasal 6.0L Cannula 12/11 0800 96 Nasal 6.0L Cannula 12/11 0642 98.0 83 20 126/88 92 Nasal 6.0L Cannula 12/11 0000 Nasal 6.0L Cannula 12/10 1923 92 Nasal 6.0L Cannula 12/10 1600 90 Nasal 6.0L Cannula 12/10 1514 Nasal 2.0L Cannula on exam; aox3, nad. cv; s1,s2, rrr resp; mild scattered expiratory wheeze. abd; soft, nt, bs+ ext; no edema. Laboratory Tests 12/11 12/11 12/10 12/10 1040 0300 2145 1500 Chemistry Sodium Pending Potassium Pending Chloride Pending Carbon Dioxide Pending Anion Gap Pending BUN Pending Creatinine Pending BUN/Creatinine Ratio Pending Lactic Acid (0.7 - 2.1 mmol/L) 2.1 2.6 H 2.9 H A/P; 71 y/o M with pmh sig for GERD, hiatal hernia, anxiety, depression , NSCLC s/p radiation at [facility](2016), history of radiation pneumonitis, DVT (not on anticoagulation) , chronic respiratory failure on 4 L home oxygen dependency, admitted with acute on chronic respiratory failure likely secondary to radiation pneumonitis. Patient also had anion gap metabolic acidosis with lactic acidosis. Lactate levels have improved after IV hydration. Currently he is on IV steroids. Patient has been followed by pulmonology and they are recommending to keeping the patient on high-dose IV steroids. He is also on moxifloxacin as well as Bactrim for PCP prophylaxis. Continue TRC nebs. Continue all other current medications. DVT prophylaxis: Heparin subcutaneous. We will try to slowly taper her oxygen to see if patient can tolerate.
--- NOTE | 2016-12-11 09:44 | PN- Pulmonary ---
Subjective HPI/Critical Care Issues: The patient is awake and alert. He reports feeling slightly improved overall. He continues however to have ongoing shortness of breath. He remains on nasal cannula at 6 L/m. He does not have any significant sputum production and he is not coughing. He denies any new complaints today. Objective Current Medications: Current Medications Sig/Rosetta Start time Last Medication Dose Route Stop Time Status Admin Acetaminophen 650 MG Q6P PRN 12/09 2245 AC PO Albuterol Sulfate 3 ML EVERY 4 HRS/AWAKE 12/10 1600 AC 12/11 INH 0827 Albuterol Sulfate 3 ML TID 12/10 1000 DC 12/10 INH 1433 Alendronate Sodium 70 MG QWED 12/11 0700 AC 12/11 PO 0552 Alprazolam 0.5 MG DAILY NEEDED PRN 12/10 1000 AC PO 12/17 0959 Azithromycin 500 MG 2200 12/10 2200 DC 12/10 Sodium Chloride 250 ML IV 12/10 2355 2217 Azithromycin 500 MG DAILY 12/10 1000 DC Sodium Chloride 250 ML IV Budesonide/ 2 PUF BID 12/10 1000 AC 12/10 Formoterol Fumarate INH 2218 Calcium Carbonate 1,250 MG DAILY 12/10 1000 AC 12/10 PO 1217 Ceftriaxone Sodium 1,000 MG 2200 12/10 2200 DC 12/10 IV 12/10 2355 2217 Ceftriaxone Sodium 1,000 MG DAILY 12/10 1000 DC IV 12/11 0959 Cholecalciferol 1,000 IU DAILY 12/10 1000 AC 12/10 PO 1021 Cyanocobalamin 1,000 MCG QMON 12/16 0700 AC PO Heparin Sodium 5,000 UNIT Q8 12/10 0600 AC 12/11 (Porcine) SC 0551 Ibuprofen 400 MG TID PRN 12/09 2245 AC PO Ipratropium [place] 2.5 ML TID 12/10 1000 DC 12/10 INH 0920 Methylprednisolone 40 MG Q8 12/10 0600 AC 12/11 IV 0552 Moxifloxacin HCl 400 MG DAILY 12/11 1000 AC PO 12/17 1001 Omeprazole 40 MG DAILY AC 12/10 0945 CAN PO Omeprazole 40 MG DAILY AC 12/10 0700 AC 12/11 PO 0552 Oxycodone HCl 10 MG Q6P PRN 12/09 2245 AC 12/10 PO 2217 Patient Medication 1 ED .STK-MED ONE 12/10 1436 DC Teaching ED 12/10 1437 Sodium Chloride 1,000 ML ONCE ONE 12/10 2345 AC 12/10 IV 12/11 0944 2340 Sodium Chloride 1,000 ML Q10H 12/10 1400 DC 12/10 IV 12/10 2359 1418 Tiotropium [place] 1 PUF DAILY 12/10 1000 AC INH Tiotropium [place] 1 PUF DAILY 12/10 1000 CAN INH Trimethoprim/ 1 TAB MoWeFr@1000 12/11 1000 AC Sulfamethoxazole PO Vital Signs & I&O Last 24 Hrs of Vitals and I&O: Vital Signs Date Time Temp Pulse Resp B/P B/P Pulse O2 O2 Flow FiO2 Mean Ox Delivery Rate 12/11 0829 96 Nasal 6.0L Cannula 12/11 0642 98.0 83 20 126/88 92 Nasal 6.0L Cannula 12/11 0000 Nasal 6.0L Cannula 12/10 1923 92 Nasal 6.0L Cannula 12/10 1600 90 Nasal 6.0L Cannula 12/10 1514 Nasal 2.0L Cannula Intake & Output 12/11 1600 12/11 0800 12/11 0000 Intake Total 800 345 Output Total 200 Balance 600 345 Intake, IV 800 225 Intake, Oral 120 Output, Urine 200 Impression/Plan Impression/Plan Impression/Plan: 1. Acute hypoxic respiratory failure secondary to radiation pneumonitis, improving with steroids. 2. Advanced COPD. 3. History of radiation pneumonitis. 4. Hiatal hernia with reflux disease. 5. Chronic respiratory failure with worsening performance status. 6. Anxiety and depression. Recommendations: * Continue prednisone recommendations as per Dr. Lowery's note from 12/10. * Osteoporosis prevention to continue. * PCP prophylaxis with Bactrim to continue. * Moxifloxacin with a total of 7 days antibiotics. * Continue current nebs/TRC and bronchodilators including Symbicort and Spiriva. * Maintain oxygen saturations between 91 and 92%. * DVT prophylaxis at all times. * Blood sugar control while on high-dose steroids. * Continue all supportive care.
[2016-12-11 13:56] VITALS: BP 106/66
[2016-12-11 22:22] VITALS: BP 116/66
--- NOTE | 2016-12-12 01:00 | Event Note ---
Event Note Event Note: Got a call from patient's nurse stating that the patient had blood cultures positive for gram positive cocci. I confirmed this with the lab. Dr. Ruiz was notified of the same by the lab. Vancomycin 1500 mg one time dose given.
[2016-12-12 06:32] VITALS: BP 120/80
--- NOTE | 2016-12-12 08:06 | PN- Housestaff ---
SHAE CORTÉS,[facility] 12/12/16 0806: Subjective Follow-up For: 1. Acute on Chronic hypoxic respiratory failure secondary to advanced COPD 2. Acute pneumonitis secondary to radiation 3. Anion Gap Metabolic Acidosis - resolved 4. History of NSCLC S/P radiation therapy Subjective: The patient stated he was chilly at night and was having several bouts of cough with no sputum production. He also got a little more short of breath. He had a relatively uncomfortable night. He denies any fevers or chest pains. Of note his blood cultures came positive for gram positive cocci last night and a dose of IV Vancomycin was given to him over night. Review of Systems Constitutional: Reports: see HPI. Cardiovascular: Reports: no symptoms. Respiratory: Reports: cough, short of breath, wheezing. Denies: sputum production. Gastrointestinal: Reports: no symptoms. Genitourinary: Reports: no symptoms. Musculoskeletal: Reports: no symptoms. Objective Last 24 Hrs of Vital Signs/I&O Vital Signs Date Time Temp Pulse Resp B/P B/P Pulse O2 O2 Flow FiO2 Mean Ox Delivery Rate 12/12 0759 93 Nasal 6.0L Cannula 12/12 0632 97.5 75 20 120/80 93 Nasal 6.0L Cannula 12/12 0000 Nasal 6.0L Cannula 12/11 2222 98.8 97 18 116/66 91 12/11 1957 88 Nasal 5.0L Cannula 12/11 1828 88 Nasal 5.0L Cannula 12/11 1600 Nasal 6.0L Cannula 12/11 1356 97.6 96 18 106/66 96 Nasal 6.0L Cannula 12/11 0829 96 Nasal 6.0L Cannula Intake & Output 12/12 1600 12/12 0800 12/12 0000 Intake Total 620 950 Output Total Balance 620 950 Intake, IV 500 Intake, Oral 120 950 Physical Exam General Appearance: Alert, Oriented X3, Cooperative, Mild Distress Cardiovascular: Regular Rate, Normal S1, Normal S2, No Murmurs Lungs: bilateral diffuse wheezing, improving, coughing with deep breaths Abdomen: Normal Bowel Sounds, Soft, No Tenderness, No Hepatospenomegaly Neurological: Normal Gait, Normal Speech, Strength at 5/5 X4 Ext, Normal Tone, Sensation Intact Extremities: No Cyanosis, Normal Pulses, bilateral leg edema, wearing compression stockings Current Medications: Current Medications Sig/Rosetta Start time Last Medication Dose Route Stop Time Status Admin Acetaminophen 650 MG Q6P PRN 12/09 2245 AC PO Albuterol Sulfate 3 ML EVERY 4 HRS/AWAKE 12/10 1600 AC 12/12 INH 0757 Alendronate Sodium 70 MG QWED 12/11 0700 AC 12/11 PO 0552 Alprazolam 0.5 MG DAILY NEEDED PRN 12/10 1000 AC 12/11 PO 12/17 0959 2114 Benzocaine/Menthol 1 SHAYNE Q2P PRN 12/12 0745 AC PO Benzonatate 100 MG TID 12/12 1000 AC PO Budesonide/ 2 PUF BID 12/10 1000 AC 12/11 Formoterol Fumarate INH 2118 Calcium Carbonate 1,250 MG DAILY 12/10 1000 AC 12/11 PO 0942 Cholecalciferol 1,000 IU DAILY 12/10 1000 AC 12/11 PO 0942 Cyanocobalamin 1,000 MCG QMON 12/16 0700 AC PO Heparin Sodium 5,000 UNIT Q8 12/10 0600 AC 12/12 (Porcine) SC 0543 Ibuprofen 400 MG TID PRN 12/09 2245 AC PO Methylprednisolone 40 MG Q8 12/10 0600 AC 12/12 IV 0543 Moxifloxacin HCl 400 MG DAILY 12/11 1000 AC 12/11 PO 12/17 1001 0942 Omeprazole 40 MG DAILY AC 12/10 0700 AC 12/12 PO 0543 Oxycodone HCl 10 MG Q6P PRN 12/09 2245 AC 12/11 PO 1626 Patient Medication 1 ED .STK-MED ONE 12/11 1356 DC Teaching ED 12/11 1357 Sodium Chloride 1,000 ML ONCE ONE 12/10 2345 DC 12/10 IV 12/11 0944 2340 Tiotropium [place] 1 PUF DAILY 12/10 1000 AC 12/11 INH 0942 Trimethoprim/ 1 TAB MoWeFr@1000 12/11 1000 AC 12/11 Sulfamethoxazole PO 0942 Vancomycin HCl 1,500 MG ONCE ONE 12/12 0100 DC 12/12 Sodium Chloride 500 ML IV 12/12 0259 0140 Last 24 Hrs of Lab/Regan Results Last 24 Hrs of Labs/Mics: Laboratory Tests 12/11/16 1040: Anion Gap 12, Estimated GFR > 60, BUN/Creatinine Ratio 25.0 Assessment/Plan Assessment: 71-year-old man with a past medical history of smoking with significant past history of GERD, anxiety and depression, non-small cell lung cancer status post radiation pnemonitis 2016, history of radiation pneumonitis, history of DVT but not on anticoagulation, COPD on 4 L of home oxygen, history of lung nodule, history of chronic respiratory failure, now presents with progressive dyspnea especially on exertion since the past few days. Recently he was seen by Dr. Lowery as an outpatient, and he was being tapered off of his prolonged by mouth steroid taper, had increased requirement of oxygen from 4 L to 6 L and oxygen saturation decreased to as low as 64%. He is being admitted for acute on chronic hypoxic respiratory failure, COPD exacerbation and radiation pneumonitis. Assessment and plan: 1. Acute on Chronic hypoxic respiratory failure secondary to COPD exacerbation and radiation pneumonitis: - Patient has a history of chronic hypoxic respiratory failure, very severe COPD , on 4 liters of home oxygen, and a prolonged steroid taper that was started in July 2016. He was tapering his steroids Qmonthly; currently was on 20 mg daily and was supposed to transition to 10 mg daily. Unfortunately he started developing shortness of breath when he was being tapered off of steroids and had to be admitted for acute on chronic hypoxic respiratory failure, with oxygen as low as 64% on 4 L of oxygen that he normally uses at home. CT ruled out pulmonary embolism and shows baseline interstitial lung disease. - Overnight the patient had severe bouts of cough without any phlegm, was chilly and short of breath. His oxygen was tapered to 5 liters with saturation going down to 88%. - Currently on 6 L of oxygen and maintaining saturations at 93%, we will try taper down 5.5 liters to maintain saturations between 91 and 92% - Today will try to taper IV steroids to 40 mg Q12 hours and transitioning to PO prednisone 60 mg x 2 weeks as advised by Dr. Lowery - Received a dose of IV Vanc last night for positive blood cultures for GPC - Strict TRC nebs [id number] - Continue with Symbicort - Continue with daily Spiriva - Is on moxifloxacin for a total of 7 days, day 2 today - Bactrim DS one tablet every Friday for PCP prophylaxis - Continue Fosamax, vitamin D and calcium. - Willl follow Pulm 2. Anion Gap Metabolic Acidosis/Lactic acidosis: - Resolved - Patient presented with a gap of 17, bicarbonate 19, evaluation with a July 28 4, PCO2 22 by mouth 252 and bicarbonate of 15. - Patient has a lactic acid of 2.6 cm to 5.3, which normalized to 2 after 2 bags of IV NS Serum bicarb has normalized as well 3. History of NSCLC S/P radiation therapy - Patient has a history of non-small cell lung cancer status post radiation therapy at [place] in 2016 - Also has a history of radiation pneumonitis and multiple admissions in the past requiring high doses of steroids - Continue current therapy - PCP Prophylaxis with Bactrim 4. GERD/hiatal hernia: - We'll continue with omeprazole 40 mg by mouth daily 5. Osteoarthritis: - We'll continue with vitamin D, Fosamax and PO calcium 6. Anxiety/depression: - We'll continue with Xanax as needed 7. Heart healthy diet 8. Due to prophylaxis with subcutaneous heparin 9. Full CODE STATUS Problem List: 1. Acute respiratory failure with hypoxia 2. COPD exacerbation 3. Hypoxemia 4. ILD (interstitial lung disease) 5. Lung cancer 6. Radiation pneumonitis Pain Ratin Pain Location: None Pain Goal: Remain pain free Pain Plan: PRN Tylenol and Percocet Tomorrow's Labs & Rationales: Not needed DVT/Prophylaxis: pharmacological Consulting Request: 1 Consulting Specialty: Pulmonary Disease Consulting Physician: Dr. Lowery Reason for Consult: Acute hypoxic resp failure Consulting Request: 2 Consulting Specialty: Pulmonary Disease Consulting Physician: Dr. Howard Reason for Consult: Acute hypoxic resp failure Discharge Plan Stable for Discharge? No DELTA CORTÉS,JACQUELINE 12/12/16 1138: Attending MD Review Statement Attending Statement Attending MD Statement: examined this patient, discuss w/resident/PA/MARBLE CARVER, agreed w/resident/PA/MARBLE CARVER, reviewed EMR data (avail), discussed with nursing, discussed with case mgmt, amended to note Attending Assessment/Plan: Patient seen and examined, slightly better today. We tried to taper his oxygen to 5 L yesterday but he dropped his oxygen saturations to 88%. He satting 93% on 6 L. Would recommend decreasing the oxygen to 5.5 L [facility] oxygen saturations responded. Would decrease his Solu-Medrol to 40 mg IV every 12 today. Continue his antibiotics. Blood cultures growing gram-positive cocci in clusters just 1 set. We'll follow-up on the final results. Continue inhalers. Continue TRC nebs. Continue all other current medications. DVT prophylaxis: Hep sq. Possibel discharge over the w/e. I have notified the nurse outreach case manager about patient's request for a second electrical oxygen unit for home.
--- NOTE | 2016-12-12 09:13 | PN- Pulmonary ---
Subjective HPI/Critical Care Issues: The patient is awake and alert. He reports feeling improved, but remains dyspneic. He did not sleep well last night noting he had a significant cough. He is currently receiving cough medication and feeling improved. He also had fluctuations in his body temperature which she attributes to his room temperature being low. He is afebrile on steroids. He otherwise denies any new complaints today. Objective Current Medications: Current Medications Sig/Rosetta Start time Last Medication Dose Route Stop Time Status Admin Acetaminophen 650 MG Q6P PRN 12/09 2245 AC PO Albuterol Sulfate 3 ML EVERY 4 HRS/AWAKE 12/10 1600 AC 12/12 INH 0757 Alendronate Sodium 70 MG QWED 12/11 0700 AC 12/11 PO 0552 Alprazolam 0.5 MG DAILY NEEDED PRN 12/10 1000 AC 12/11 PO 12/17 0959 2114 Benzocaine/Menthol 1 SHAYNE Q2P PRN 12/12 0745 AC PO Benzonatate 100 MG TID 12/12 1000 AC PO Budesonide/ 2 PUF BID 12/10 1000 AC 12/11 Formoterol Fumarate INH 2118 Calcium Carbonate 1,250 MG DAILY 12/10 1000 AC 12/11 PO 0942 Cholecalciferol 1,000 IU DAILY 12/10 1000 AC 12/11 PO 0942 Cyanocobalamin 1,000 MCG QMON 12/16 0700 AC PO Heparin Sodium 5,000 UNIT Q8 12/10 0600 AC 12/12 (Porcine) SC 0543 Ibuprofen 400 MG TID PRN 12/09 2245 AC PO Methylprednisolone 40 MG Q12 12/12 1000 UNVr IV Methylprednisolone 40 MG Q8 12/10 0600 DC 12/12 IV 0543 Moxifloxacin HCl 400 MG DAILY 12/11 1000 AC 12/11 PO 12/17 1001 0942 Omeprazole 40 MG DAILY AC 12/10 0700 AC 12/12 PO 0543 Oxycodone HCl 10 MG Q6P PRN 12/09 2245 AC 12/11 PO 1626 Patient Medication 1 ED .STK-MED ONE 12/11 1356 DC Teaching ED 12/11 1357 Sodium Chloride 1,000 ML ONCE ONE 12/10 2345 DC 12/10 IV 12/11 0944 2340 Tiotropium [place] 1 PUF DAILY 12/10 1000 AC 12/11 INH 0942 Trimethoprim/ 1 TAB MoWeFr@1000 12/11 1000 AC 12/11 Sulfamethoxazole PO 0942 Vancomycin HCl 1,500 MG ONCE ONE 12/12 0100 DC 12/12 Sodium Chloride 500 ML IV 12/12 0259 0140 Vital Signs & I&O Last 24 Hrs of Vitals and I&O: Vital Signs Date Time Temp Pulse Resp B/P B/P Pulse O2 O2 Flow FiO2 Mean Ox Delivery Rate 12/12 0759 93 Nasal 6.0L Cannula 12/12 0632 97.5 75 20 120/80 93 Nasal 6.0L Cannula 12/12 0000 Nasal 6.0L Cannula 12/11 2222 98.8 97 18 116/66 91 12/11 1957 88 Nasal 5.0L Cannula 12/11 1828 88 Nasal 5.0L Cannula 12/11 1600 Nasal 6.0L Cannula 12/11 1356 97.6 96 18 106/66 96 Nasal 6.0L Cannula Intake & Output 12/12 1600 12/12 0800 12/12 0000 Intake Total 620 950 Output Total Balance 620 950 Intake, IV 500 Intake, Oral 120 950 Physical Exam General Appearance Alert, Oriented X3, Cooperative, Mild Distress Skin No Rashes, No Breakdown HEENT Atraumatic, PERRLA, EOMI, dilated right and constricted left pupil Neck Supple, JVD+ Cardiovascular Normal S1, Normal S2, tachycardia Lungs decresed air entry, crackles Abdomen Soft, No Tenderness, distended Neurological Normal Speech Extremities No Clubbing, No Cyanosis, mild edema, clubbing+ Impression/Plan Impression/Plan Impression/Plan: 1. Acute hypoxic respiratory failure secondary to radiation pneumonitis, improving with steroids. 2. Advanced COPD. 3. History of radiation pneumonitis. 4. Hiatal hernia with reflux disease. 5. Chronic respiratory failure with worsening performance status. 6. Anxiety and depression. Recommendations: * Continue prednisone recommendations as per Dr. Lowery's note from 12/10. * Osteoporosis prevention to continue. * PCP prophylaxis with Bactrim to continue. * Moxifloxacin with a total of 7 days antibiotics. * Continue current nebs/TRC and bronchodilators including Symbicort and Spiriva. * Maintain oxygen saturations between 91 and 92%. * DVT prophylaxis at all times. * Blood sugar control while on high-dose steroids. * Continue all supportive care.
--- NOTE | 2016-12-12 12:30 | ECHOCARDIOGRAM REPORT ---
YULISA FOWLER Age: 71 : 1945 Gender: M Exam Date: 12/11/2016 19:49 Exam Location: [address] [place] [address] Ht (in): 72 Wt (lb): 234 BSA: 2.35 BP: 98 / 60 Ordering Physician: SONAL SRINIVASAN MD Referring Physician: SONAL SRINIVASAN MD Technologist: Cheri Villagomez NEW Room Number: 211 Indications: SHORTNESS OF BREATH Rhythm: Sinus Technical Quality: Good FINDINGS Left Ventricle Normal size left ventricle. Mild concentric left ventricular hypertrophy. Normal left ventricular ejection fraction visually estimated at >65 %. No obvious regional wall motion abnormalities. Abnormal relaxation filling pattern of the left ventricle for age (stage 1 diastolic dysfunction). Right Ventricle The right ventricle is normal in size and function. Right Atrium The right atrium is normal in size. Left Atrium Mild left atrial dilatation. Mitral Valve Mild thickening/calcification of the mitral valve leaflets. Moderate mitral annular calcification. No mitral regurgitation. Aortic Valve Diffuse thickening (sclerosis) of the aortic valve cusps without reduced excursion. No aortic stenosis. Trace aortic regurgitation. Tricuspid Valve Structurally normal tricuspid valve. Mild tricuspid regurgitation. Right ventricular systolic pressure estimated to be elevated at 45 mmHg. Pulmonic Valve Structurally normal pulmonic valve. There is no pulmonic regurgitation. Pericardium Normal pericardium without effusion. No pleural effusion. Great Vessels The ascending aorta and aortic root are mildly dilated. Dilated IVC. CONCLUSIONS Mild concentric left ventricular hypertrophy. Normal left ventricular ejection fraction visually estimated at >65 Abnormal relaxation filling pattern of the left ventricle for age (stage 1 diastolic dysfunction). Mild left atrial dilatation. Mild thickening/calcification of the mitral valve leaflets. Moderate mitral annular calcification. Diffuse thickening (sclerosis) of the aortic valve cusps without reduced excursion. No aortic stenosis. Trace aortic regurgitation. Right ventricular systolic pressure estimated to be elevated at 45 mmHg. The ascending aorta and aortic root are mildly dilated. Dilated IVC. Nhan Blackmon M.D. (Electronically Signed) Final Date: 12 December 2016 12:30 MEASUREMENTS (Male / Female) Normal Values 2D ECHO LV Diastolic Diameter PLAX 3.6 cm 4.2 - 5.9 / 3.9 - 5.3 cm LV Systolic Diameter PLAX 1.9 cm 2.1 - 4.0 cm LV Fractional Shortening PLAX 47.2 % 25 - 46 % LV Ejection Fraction 2D Teich 79.5 % IVS Diastolic Thickness 1.2 cm LVPW Diastolic Thickness 1.2 cm LV Relative Wall Thickness 0.7 RV Internal Dim ED PLAX 3.6 cm 1.9 - 3.8 cm LVOT Diameter 2.3 cm Aortic Root Diameter 3.8 cm LA Systolic Diameter LX 3.1 cm 3.0 - 4.0 / 2.7 - 3.8 cm LA Volume 57.0 cm 18 - 58 / 22 - 52 cm Ascending Aorta Diameter 3.9 cm DOPPLER AV Peak Velocity 192.0 cm/s AV Peak Gradient 14.7 mmHg AV Mean Velocity 125.0 cm/s AV Mean Gradient 7.0 mmHg AV Velocity Time Integral 35.5 cm LVOT Peak Velocity 164.0 cm/s LVOT Peak Gradient 10.8 mmHg LVOT Mean Velocity 113.0 cm/s LVOT Mean Gradient 6.0 mmHg LVOT Velocity Time Integral 30.7 cm LVOT Stroke Volume 127.6 cm AV Area Cont Eq vti 3.6 cm AV Area Cont Eq pk 3.5 cm MV Peak Velocity 136.0 cm/s MV Peak Gradient 7.4 mmHg MV Mean Velocity 79.0 cm/s MV Mean Gradient 3.0 mmHg Mitral E Point Velocity 89.8 cm/s Mitral A Point Velocity 133.0 cm/s Mitral E to A Ratio 0.7 MV PHT Velocity 96.5 cm/s MV Deceleration [place] 234.0 cm/s MV Pressure Half Time 123.7 ms MV Area PHT 1.8 cm MV Deceleration Time 296.0 ms TR Peak Velocity 319.0 cm/s TR Peak Gradient 40.7 mmHg Right Atrial Pressure 5.0 mmHg Pulmonary Artery Systolic Pressu 45.7 mmHg Right Ventricular Systolic Press 45.7 mmHg PV Peak Velocity 106.0 cm/s PV Peak Gradient 4.5 mmHg PV Mean Velocity 67.3 cm/s PV Mean Gradient 2.0 mmHg PV Velocity Time Integral 17.8 cm LV E' Lateral Velocity 6.3 cm/s Mitral E to LV E' Lateral Ratio 14.2 LV E' Septal Velocity 5.7 cm/s Mitral E to LV E' Septal Ratio 15.9
--- NOTE | 2016-12-12 13:51 | Patient Discharge Instructions ---
Discharge Instructions General Discharge Information You were seen/treated for: 1. Acute on Chronic hypoxic respiratory failure secondary to advanced COPD 2. Acute pneumonitis secondary to radiation 3. Anion Gap Metabolic Acidosis - resolved 4. History of NSCLC S/P radiation therapy Special Instructions: 1. Please follow up with Dr. Lowery a few days after discharge and then very closely to monitor lung function, and optimization of medications especially steroids 2. Continue with oxygen at 5 liters 3. Follow up with your primarycare physician, Dr. Lau, in a week after discharge 4. In case of shortness of breath, chest pain, difficulty breathing, please come to the ED 5. Continue with Steroids at 60 mg every day for at least [address] Lowery for tapering steroids. 6. If you feel short of breath on walking, please continue to wear your oxygen, and take long deep breaths, and sit down. You may go up on your oxygen and contact your doctor. Diet Continue normal diet: Yes Recommended Diet: Heart Healthy Activity Full Activity/No Limits: Yes Additional ACTIVITY Info: As tolerated Acute Coronary Syndrome Inclusion Criteria At DC or during hospital stay patient has or had the following: ACS DIAGNOSIS No Discharge Core Measures Meds if any: Prescribed or Continued at Discharge Meds if any: NOT Prescribed or Continued at Discharge Congestive Heart Failure Inclusion Criteria At DC or during hospital stay patient has or had the following: CHF DIAGNOSIS No Discharge Core Measures Meds if any: Prescribed or Continued at Discharge Meds if any: NOT Prescribed or Continued at Discharge Cerebrovascular accident Inclusion Criteria At DC or during hospital stay patient has or had the following: CVA/TIA Diagnosis No Discharge Core Measures Meds if any: Prescribed or Continued at Discharge Meds if any: NOT Prescribed or Continued at Discharge Venous thromboembolism Inclusion Criteria VTE Diagnosis No VTE Type NONE VTE Confirmed by (Test) NONE Discharge Core Measures - Per Current guidelines, there needs to be overlap - treatment for the first 5 days of Warfarin therapy. - If discharged on Warfarin prior to 5 days of - overlap therapy, the patient will need to be - assessed for post discharge needs including - *Post discharge parental anticoagulation - *Warfarin and/or parental anticoagulation education - *Follow up date to check INR post discharge At least 5 days overlap therapy as Inpatient No Meds if any: Prescribed or Continued at Discharge Note: Overlap Therapy is Warfarin and Anticoagulant Meds if any: NOT Prescribed or Continued at Discharge
[2016-12-12] MEDS ORDERED: CHLORASEPTIC S1 EACH PO (13:58)
[2016-12-12] MEDS ORDERED: CALCIUM CARBON500 M2 PO (14:03)
[2016-12-12] MEDS ORDERED: SULFAMETHOXAZO1 EAC1 PO (14:03)
[2016-12-12] MEDS ORDERED: MOXIFLOXACIN H400 M2 PO (14:03)
[2016-12-12] MEDS ORDERED: ALENDRONATE SOD70 M2 PO (14:03)
[2016-12-12] MEDS ORDERED: BENZONATATE100 M1 PO (14:03)
[2016-12-12] MEDS ORDERED: XANAX0.25 M1 PO (14:03)
[2016-12-12] MEDS ORDERED: PREDNISONE10 M2 PO (14:03)
[2016-12-12] MEDS ORDERED: SPIRIVA18 MCG INH (14:03)
--- NOTE | 2016-12-12 14:05 | Discharge Summary ---
Visit Information Visit Dates Admission Date: 12/09/16 Discharge Date: 12/15/16 Hospital Course Course Attending Physician: JACQUELINE SORENSON MD Primary Care Physician: JUANA VENEGAS MD Consulting Request: Consulting Specialty: Pulmonary Disease Consulting Physician: Dr. Howard Reason for Consult: Acute hypoxic resp failure Hospital Course: 71-year-old man with a past medical history of smoking with significant past history of GERD, anxiety and depression, non-small cell lung cancer status post radiation pnemonitis 2015, history of radiation pneumonitis, history of DVT but not on anticoagulation, COPD on 4 L of home oxygen, history of lung nodule, history of chronic respiratory failure, now presents with progressive dyspnea especially on exertion since the past few days. Was discharged from [facility] in Jul 2016 with similar complaints. Recently he was seen by Dr. Lowery as an outpatient, and he was being tapered off of his prolonged by mouth steroid taper , (he was started on 60 mg Daily for Jul, 50 mg in Aug and so forth, was on 20 mg Daily in November, suppoed to go on 10 mg in December), and had increased requirement of oxygen from 4 L to 6 L and oxygen saturation decreased to as low as 64%. At home he stays in 80s and even drops down to 70s upon ambulation, was admitted for acute on chronic hypoxic respiratory failure, COPD exacerbation and radiation pneumonitis. Vitals at the time of admission showed a blood pressure 129/82, respiratory rate 40, tachycardic to 122, afebrile, saturating 78% on 6 L of oxygen via nasal cannula. Physical exam: Alert and oriented 3 and in mild respiratory distress sitting in bed with nasal cannula, dry mucous membranes, normal S1, S2, tachycardia, no murmurs rubs or gallops appreciated, no elevated JVD or cervical lymphadenopathy , decreased breath sounds bilaterally, and diffuse wheezing the next day, abdomen soft, nontender, nondistended normal bowel sounds, trace ankle edema, at baseline. Labs: white blood cell counts 10,800, H&H of 16.6/49.8, platelet count of 1 99,000. Serum chemistries revealed sodium of 141, potassium of 4.1, bicarbonate of 19, anion gap of 15, BUN 28 and creatinine of 0.9. Serum glucose elevated to 129. Lactic acid 2.9 LFTs unremarkable with an AST/ALT 15/29, total bili of 1.2, calcium of 9.3 and an alkaline phosphatase of 65. Troponin negative and proBNP is 1490. ABG showed a pH of 7.44, PCO2 of 22, PO2 of 52 and bicarbonate of 15. Chest x-ray showed persistent extensive interstitial disease with superimposed right mid and lower lung zone airspace disease. Rapid viral influenza A was negative EKG showed ST, HR:114; WA:128, left atrial enlargement, no ST-T changes The patient was admitted to [facility] initially but then transferred to [facility] further management. Problem List: 1. Acute on Chronic hypoxic respiratory failure secondary to COPD exacerbation and radiation pneumonitis: Mr. Diego has a history of chronic hypoxic respiratory failure, severe COPD, on 4 liters of home oxygen, and a prolonged steroid taper that was started in July 2016. He was tapering his steroids Qmonthly; currently was on 20 mg daily (November) and was supposed to transition to 10 mg daily in December. Unfortunately he started developing shortness of breath when he was being tapered off of steroids and had to be admitted for acute on chronic hypoxic respiratory failure, with oxygen as low as 64% on 4 L of oxygen that he normally uses at home. CT ruled out pulmonary embolism and shows baseline interstitial lung disease. He was started on IV Solumedrol 40 mg Q8H and received one dose of IV ceftraixone and Azithromycin in the ED. Dr. 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 Although low suspicion ofr pneumonia, but being immunocompromised, severe hypoxia, recurrent admissions to [facility] for similar complaints, and having radiation pneumonitis, he was maintained on Moxifloxacin to continue for a total of 7 days. he was continued on IV Solumedrol for the first 3 days of admission. With mild improvement in his wheezing and respiratory status he was eventually transitioned to PO Prednisone 60 mg to continue for 2 weeks and tapering to 50 mg thereafter but no further taper unless he is re-evaluated by Dr. Lowery as an outpatient. His oxygen was slowly tapered to 5 liters to maintain an oxygen saturation between 91-92%, and to avoid over oxygenation and oxylitic injury to the lungs with the underlyiong ILD and radiation pneumonitis. He grew GPC in clusters in 1/2 BCx, that trurned out to be micrococcus, likely contamination. He recieved one dose of Iv Vancomycin but was moonitored off of Vanc after that, remained afebrile, and continued to improve slowly. he was also continued on ATC TRC Nebs, daily spiriva, and Symbicort BID. During this hospital stay he was started on Bactrim DS 1 tablet Friday. Friday, Friday for PCP rophylaxis. Being on high doses of steroids for several months, he was started on Calcium and Fosamax to prevent osteo. Vit D was continued. Robitussin, Tessalon perles and lozanges were given for cough, non-productive. The patient has poor prognosis due to his underlying severe COPD and ILD, and a history of cancer S/P radiation and needs close follow up with Dr. Lowery after discharge. ECHO was done to rule out cardiac causes. It showed normal size left ventricle. Mild concentric left ventricular hypertrophy. Normal left ventricular EF at >65 %. No obvious regional wall motion abnormalities. Abnormal relaxation filling pattern of the left ventricle for age (stage 1 diastolic dysfunction). 2. Anion Gap Metabolic Acidosis/Lactic acidosis: Patient presented with a gap of 17, bicarbonate 19, PCO2 22, PO2 52 and bicarbonate of 15. Likely secondary to his respiratory failure. Lactic acid increeased from 2.6 on admission to 5.3, but trended down to normal after hydration with 1 bag of normal saline. Acidosis was resolved on day 2 of admission. 3. History of NSCLC S/P radiation therapy: He was continued on therapy for respiratory failure secondary to radiation pnemonitis. PCP Prophylaxis with Bactrim was added. 4. GERD/hiatal hernia: Was continued with omeprazole 40 mg by mouth daily 5. Anxiety/depression: Was continued with Xanax as needed 6. Maintained on Heart healthy diet 7. DVT prophylaxis with subcutaneous heparin 10. Remained Full CODE STATUS Allergies: Coded Allergies: NO KNOWN ALLERGIES (05/16/14) Significant Procedures: CXR Chest CT ECHO Pertinent Lab Results: Laboratory Tests 12/11/16 1040: Anion Gap 12, Estimated GFR > 60, BUN/Creatinine Ratio 25.0 12/11/16 0300: Lactic Acid 2.1 12/10/16 2145: Lactic Acid 2.6 H 12/10/16 1500: Lactic Acid 2.9 H 12/10/16 1033: Anion Gap 17 H, Estimated GFR > 60, BUN/Creatinine Ratio 27.5 H, Troponin I 0.02 Disposition Summary Disposition Principal Diagnosis: 1. Acute on Chronic hypoxic respiratory failure secondary to advanced COPD 2. Acute pneumonitis secondary to radiation 3. Anion Gap Metabolic Acidosis - resolved 4. History of NSCLC S/P radiation therapy Additional Diagnosis: Hiatal hernia with reflux disease. Chronic respiratory failure with worsening performance status. Anxiety and depression. Discharge Disposition: home or self care Discharge Instructions General Discharge Information Code Status: Full Code Patient's Diet: Regular Patient's Activity: As Tolerated Follow-Up Instructions/Appts: 1. Please follow up with Dr. Lowery a few days after discharge and then very closely to monitor lung function, and optimization of medications especially steroids 2. Continue with oxygen at 5 liters 3. Follow up with your primarycare physician, Dr. Venegas, in a week after discharge 4. In case of shortness of breath, chest pain, difficulty breathing, please come to the ED 5. Continue with Steroids at 60 mg every day for at least [address] Lowery for tapering steroids. 6. If you feel short of breath on walking, please continue to wear your oxygen, and take long deep breaths, and sit down. You may go up on your ocygen and contact your doctor. Medications at Discharge Discharge Medications: Stop taking the following medications: Prednisone (Prednisone) 10 MG TABLET ORAL DAILY Qty = 200 Continue taking these medications: Omeprazole (Omeprazole) [address]SULE.DR Rainey Capsule ORAL DAILY Comments: Last Taken: 12/15/16 Time: 0545 AM Budesonide/Formoterol Fumarate (Symbicort 160-4.5 Mcg Inhaler) 160 MCG-4.5 MCG/ ACTUATION HFA.AER.AD 2 Puff Inhale through mouth THREE TIMES DAILY Comments: Last Taken: 12/15/16 Time: 1100 AM Hydrocodone/Acetaminophen (Hydrocodon-Acetaminophen 5-300) 5 MG-300 MG TABLET 1 Tablet ORAL TWICE DAILY as needed for PAIN Comments: NOT GIVEN IN HOSPITAL Albuterol Sulfate (Proventil Hfa) 90 MCG HFA.AER.AD 2 Puff Inhale through mouth as needed for EMPHYSEMA Comments: NOT GIVEN Naproxen Sodium (Aleve) 220 MG TABLET 2 Tablet ORAL DAILY Comments: NOT GIVEN IN HOSPITAL Cholecalciferol (Vitamin D3) (Vitamin D) 2,000 UNIT TABLET 1 Tablet ORAL DAILY Comments: Last Taken: 12/15/16 Time: 1100 AM Cyanocobalamin (Vitamin B-12) 1,000 MCG TABLET 1 Tablet ORAL EVERY FRIDAY Comments: NOT GIVEN IN HOSPITAL Start taking the following new medications: Moxifloxacin HCl (Moxifloxacin HCl) 400 MG TABLET 400 Milligram ORAL DAILY Days = 3 No Refills Instructions: started on 12/11. Stop on 12/17/16 (total of 7 days) Comments: Last Taken: 12/14/16 Time: 1100 AM Sulfamethoxazole/Trimethoprim (Sulfamethoxazole-Tmp Ds Tablet) 800 MG-160 MG TABLET 1 Tablet ORAL MoWeFr@1000 Qty = 30 No Refills Instructions: PCP prophylaxis, take every Friday, Friday and Friday Comments: NOT GIVEN IN HOSPITAL Tiotropium [place] (Spiriva) 18 MCG CAP.W.DEV 1 Puff Inhale through mouth DAILY Days = 30 No Refills Comments: Last Taken: 12/15/16 Time: 1100 AM Alprazolam (Xanax) 0.25 MG TABLET 0.5 Milligram ORAL DAILY NEEDED as needed for ANXIETY Qty = 30 No Refills Comments: Last Taken: 12/14/16 Time: 9:00 PM Calcium Carbonate (Calcium Carbonate) 500 MG CALCIUM (1,250 MG) TABLET 1,250 Milligram ORAL DAILY Qty = 30 No Refills Comments: Last Taken: 12/15/16 Time: 11 AM Benzonatate (Benzonatate) 100 MG CAPSULE 100 Milligram ORAL THREE TIMES DAILY Days = 30 No Refills Comments: Last Taken: 12/15/16 Time: 1100 AM Alendronate Sodium (Alendronate Sodium) 70 MG TABLET 70 Milligram ORAL EVERY FRIDAY Qty = 30 No Refills Comments: Last Taken: 12/15/16 Time: 0600 AM Benzocaine/Menthol (Chloraseptic Sore Throat Lozng) 6 MG-10 MG LOZENGE 1 Lozenge ORAL EVERY 2 HOURS NEEDED as needed for Sore Throat Qty = 30 No Refills Comments: Last Taken: 12/13/16 Time: 12:30 AM Prednisone (Prednisone) 10 MG TABLET 0 ORAL DAILY Qty = 250 No Refills Instructions: Please take 60 mg (6 tablets) daily x 2 weeks then take 50 mg (5 tablets) x 4 weeks do not taper before seeing Dr. Lowery Pt will need refill of prednisone Comments: Last Taken: 12/15/16 Time: 1100 AM Copies To: SIMEON CORTÉS,Danny ANTHONY; DELTA CORTÉS,JACQUELINE; ARISTEO CORTÉS,DOREEN Drake; RUBI CORTÉS, JUANA
[2016-12-12 14:14] VITALS: BP 130/70
[2016-12-12 16:17] VITALS: BP 120/78
[2016-12-12 22:32] VITALS: BP 110/72
[2016-12-13 06:08] VITALS: BP 110/70
--- NOTE | 2016-12-13 08:29 | PN- Housestaff ---
SHAE CORTÉS,[facility] 12/13/16 0824: Subjective Follow-up For: 1. Acute on Chronic hypoxic respiratory failure secondary to advanced COPD 2. Acute pneumonitis secondary to radiation 3. Anion Gap Metabolic Acidosis - resolved 4. History of NSCLC S/P radiation therapy Subjective: I had a very long discussion with the patient regarding his medical condition, management and possible plans after discharge. He is doing relatively better. His shortness of breath is much improved and was able to walk to the bathroom and the door without getting out of breath. Stated his night started off with some SOB and cough, and required lozenges. He also stated it was the first night he slept peacefully for a stretch of 5 hours and feels relatively refreshed although still needs more rest. He has been saturating well at 5.5 l, infact today we discussed doing down to 5 liters and may be 4.5 l, which he was happy about. Denied nay chest pains, palpitations, N/V/D, abd pain, fevers of chills. Review of Systems Constitutional: Reports: see HPI. Cardiovascular: Reports: no symptoms. Respiratory: Reports: see HPI, cough. Denies: orthopnea, sputum production. Gastrointestinal: Reports: no symptoms. Genitourinary: Reports: no symptoms. Musculoskeletal: Reports: no symptoms. Objective Last 24 Hrs of Vital Signs/I&O Vital Signs Date Time Temp Pulse Resp B/P B/P Pulse O2 O2 Flow FiO2 Mean Ox Delivery Rate 12/13 0825 96 Nasal 5.5L Cannula 12/13 0608 97.8 72 20 110/70 94 Nasal 4.0L Cannula 12/13 0000 Nasal 5.5L Cannula 12/12 2232 97.4 87 18 110/72 92 Room Air 12/12 2213 4.0 12/12 1617 97.8 90 24 120/78 93 Nasal 5.5L Cannula 12/12 1544 92 Nasal 5.5L Cannula 12/12 1414 98.2 98 20 130/70 91 Nasal 5.5L Cannula Physical Exam General Appearance: Alert, Oriented X3, Cooperative, No Acute Distress Neck: No JVD Lymphatic: Cervical nl Cardiovascular: Regular Rate, Normal S1, Normal S2, No Murmurs Lungs: minimal wheezing, decreased breath sounds Abdomen: Normal Bowel Sounds, Soft, No Tenderness, No Hepatospenomegaly Neurological: Normal Gait, Normal Speech, Strength at 5/5 X4 Ext, Normal Tone, Sensation Intact, Cranial Nerves 3-12 NL Extremities: Normal Pulses, ankle edema, compression stockings in place Vascular: Pulses Symmetrical Current Medications: Current Medications Sig/Rosetta Start time Last Medication Dose Route Stop Time Status Admin Acetaminophen 650 MG Q6P PRN 12/09 2245 AC PO Albuterol Sulfate 3 ML EVERY 4 HRS/AWAKE 12/10 1600 AC 12/13 INH 0818 Alendronate Sodium 70 MG QWED 12/11 0700 AC 12/11 PO 0552 Alprazolam 0.5 MG DAILY NEEDED PRN 12/10 1000 AC 12/13 PO 12/17 0959 0034 Benzocaine/Menthol 1 SHAYNE Q2P PRN 12/12 0745 AC 12/13 PO 0031 Benzonatate 100 MG TID 12/12 1000 AC 12/12 PO 2205 Budesonide/ 2 PUF BID 12/10 1000 AC 12/12 Formoterol Fumarate INH 2039 Calcium Carbonate 1,250 MG DAILY 12/10 1000 AC 12/12 PO 0950 Cholecalciferol 1,000 IU DAILY 12/10 1000 AC 12/12 PO 0950 Cyanocobalamin 1,000 MCG QMON 12/16 0700 AC PO Heparin Sodium 5,000 UNIT Q8 12/10 0600 AC 12/13 (Porcine) SC 0643 Ibuprofen 400 MG .STK-MED ONE 12/12 2213 DC PO 12/12 2214 Ibuprofen 400 MG TID PRN 12/09 2245 AC 12/12 PO 2213 Methylprednisolone 40 MG Q12 12/12 1000 DC 12/12 IV 2204 Methylprednisolone 40 MG Q8 12/10 0600 DC 12/12 IV 0543 Moxifloxacin HCl 400 MG DAILY 12/11 1000 AC 12/12 PO 12/17 1001 0950 Omeprazole 40 MG DAILY AC 12/10 0700 AC 12/13 PO 0643 Oxycodone HCl 10 MG Q6P PRN 12/09 2245 AC 12/11 PO 1626 Prednisone 60 MG DAILY 12/13 1000 AC PO Tiotropium [place] 1 PUF DAILY 12/10 1000 AC 12/12 INH 0950 Trimethoprim/ 1 TAB MoWeFr@1000 12/11 1000 AC 12/11 Sulfamethoxazole PO 0942 Assessment/Plan Assessment: 71-year-old man with a past medical history of smoking with significant past history of GERD, anxiety and depression, non-small cell lung cancer status post radiation pnemonitis 2016, history of radiation pneumonitis, history of DVT but not on anticoagulation, COPD on 4 L of home oxygen, history of lung nodule, history of chronic respiratory failure, now presents with progressive dyspnea especially on exertion since the past few days. Recently he was seen by Dr. Lowery as an outpatient, and he was being tapered off of his prolonged by mouth steroid taper, had increased requirement of oxygen from 4 L to 6 L and oxygen saturation decreased to as low as 64%. He is being admitted for acute on chronic hypoxic respiratory failure, COPD exacerbation and radiation pneumonitis. Assessment and plan: 1. Acute on Chronic hypoxic respiratory failure secondary to COPD exacerbation and radiation pneumonitis: - Patient has a history of chronic hypoxic respiratory failure, very severe COPD , on 4 liters of home oxygen, and a prolonged steroid taper that was started in July 2016. He was tapering his steroids Qmonthly; currently was on 20 mg daily and was supposed to transition to 10 mg daily. Unfortunately he started developing shortness of breath when he was being tapered off of steroids and had to be admitted for acute on chronic hypoxic respiratory failure, with oxygen as low as 64% on 4 L of oxygen that he normally uses at home. CT ruled out pulmonary embolism and shows baseline interstitial lung disease. - The night started with cough and some SOB, but then was confortable, slept well, 96% on 5.5 liters. Will taper down to maintain an oxygen saturation between 91 and 92%. - Will transition to PO Prednisone 60 mg PO Daily today and maintain for at least [address] Lowery's recommendations. - GPC in clusters in 08/26 BCx - awaiting S&S, received only one dose of Vanc, afebrile, and improving, will continue to monitor off Vanc - Strict TRC nebs [id number] - Continue with Symbicort - Continue with daily Spiriva - Is on moxifloxacin for a total of 7 days, day 3 today - Bactrim DS one tablet every Friday for PCP prophylaxis - Continue Fosamax, vitamin D and calcium. - Willl follow Pulm 2. Anion Gap Metabolic Acidosis/Lactic acidosis: - Resolved 3. History of NSCLC S/P radiation therapy - Continue current therapy - PCP Prophylaxis with Bactrim 4. GERD/hiatal hernia: - We'll continue with omeprazole 40 mg by mouth daily 5. Osteoarthritis: - We'll continue with vitamin D, Fosamax and PO calcium 6. Anxiety/depression: - We'll continue with Xanax as needed 7. Heart healthy diet 8. Due to prophylaxis with subcutaneous heparin 9. Full CODE STATUS Problem List: 1. Radiation pneumonitis 2. ILD (interstitial lung disease) 3. Acute respiratory failure with hypoxia 4. COPD exacerbation 5. Lung cancer Pain Ratin Pain Location: None Pain Goal: Remain pain free Pain Plan: PRN TYlenol and Ibuprofen Tomorrow's Labs & Rationales: None DVT/Prophylaxis: pharmacological Consulting Request: Consulting Specialty: Pulmonary Disease Consulting Physician: Dr. Howard Reason for Consult: Acute hypoxic resp failure Discharge Plan Discharge Disposition: home Stable for Discharge? No Anticipated Discharge (Day): tomorrow If Discharged Today/In 24 Hrs: enter antc discharge ord, DC summary done, CMR done DELTA CORTÉS,JACQUELINE 12/13/16 1050: Attending MD Review Statement Attending Statement Attending MD Statement: examined this patient, discuss w/resident/PA/REINSURANCE ANALYST, agreed w/resident/PA/REINSURANCE ANALYST, reviewed EMR data (avail), discussed with nursing, discussed with case mgmt, reviewed images, amended to note Attending Assessment/Plan: Patient seen and examined, feeling slightly better today. Still short of breath but improved than before. We have done his oxygen to 5 L. Vital Signs Date Time Temp Pulse Resp B/P B/P Pulse O2 O2 Flow FiO2 Mean Ox Delivery Rate 12/13 0825 96 Nasal 5.5L Cannula 12/13 0800 Nasal 5.5L Cannula 12/13 0608 97.8 72 20 110/70 94 Nasal 4.0L Cannula 12/13 0000 Nasal 5.5L Cannula 12/12 2232 97.4 87 18 110/72 92 Room Air 12/12 2213 4.0 12/12 1617 97.8 90 24 120/78 93 Nasal 5.5L Cannula 12/12 1544 92 Nasal 5.5L Cannula 12/12 1414 98.2 98 20 130/70 91 Nasal 5.5L Cannula on exam; aoX3, NAD cv; s1,s2, rrr resp; somewhat course bs b/l abd; soft, nt, bs+ ext; no edema no labs. A/P; 71 y/o M with pmh sig for GERD, hiatal hernia, anxiety, depression , NSCLC s/p radiation at [place](2016), history of radiation pneumonitis, DVT (not on anticoagulation) , chronic respiratory failure on 4 L home oxygen dependency, admitted with acute on chronic respiratory failure likely secondary to radiation pneumonitis. We will start him on by mouth prednisone today. Patient will be started on a very slow taper as recommended by his support merchandiser Dr. Lowery. Continue antibiotics and complete the course. Patient will stay on Bactrim. Continue TRC nebs and inhalers. Oxygen has been titrated down very slowly and gradually as he can tolerate. Continue other current medications. DVT prophylaxis: Heparin subcutaneous. If patient continues to improve then possibly he can be discharged home tomorrow. investment manager is aware about arranging a second unit of oxygen for home.
--- NOTE | 2016-12-13 09:27 | PN- Pulmonary ---
Subjective HPI/Critical Care Issues: The patient is awake and alert. He reports feeling markedly improved today. He is less short of breath. He still has significant exertional dyspnea however he is improving toward his baseline. He has a minimal cough, and denies any other issues including chest pain, abdominal pain, nausea or vomiting. He remains afebrile, on steroids. He is being changed over to oral prednisone today. Objective Current Medications: Current Medications Sig/Rosetta Start time Last Medication Dose Route Stop Time Status Admin Acetaminophen 650 MG Q6P PRN 12/09 2245 AC PO Albuterol Sulfate 3 ML EVERY 4 HRS/AWAKE 12/10 1600 AC 12/13 INH 0818 Alendronate Sodium 70 MG QWED 12/11 0700 AC 12/11 PO 0552 Alprazolam 0.5 MG DAILY NEEDED PRN 12/10 1000 AC 12/13 PO 12/17 0959 0034 Benzocaine/Menthol 1 SHAYNE Q2P PRN 12/12 0745 AC 12/13 PO 0031 Benzonatate 100 MG TID 12/12 1000 AC 12/12 PO 2205 Budesonide/ 2 PUF BID 12/10 1000 AC 12/12 Formoterol Fumarate INH 2039 Calcium Carbonate 1,250 MG DAILY 12/10 1000 AC 12/12 PO 0950 Cholecalciferol 1,000 IU DAILY 12/10 1000 AC 12/12 PO 0950 Cyanocobalamin 1,000 MCG QMON 12/16 0700 AC PO Heparin Sodium 5,000 UNIT Q8 12/10 0600 AC 12/13 (Porcine) SC 0643 Ibuprofen 400 MG .STK-MED ONE 12/12 2213 DC PO 12/12 2214 Ibuprofen 400 MG TID PRN 12/09 2245 AC 12/12 PO 2213 Methylprednisolone 40 MG Q12 12/12 1000 DC 12/12 IV 2204 Moxifloxacin HCl 400 MG DAILY 12/11 1000 AC 12/12 PO 12/17 1001 0950 Omeprazole 40 MG DAILY AC 12/10 0700 AC 12/13 PO 0643 Oxycodone HCl 10 MG Q6P PRN 12/09 2245 AC 12/11 PO 1626 Prednisone 60 MG DAILY 12/13 1000 AC PO Tiotropium [place] 1 PUF DAILY 12/10 1000 AC 12/12 INH 0950 Trimethoprim/ 1 TAB MoWeFr@1000 12/11 1000 AC 12/11 Sulfamethoxazole PO 0942 Vital Signs & I&O Last 24 Hrs of Vitals and I&O: Vital Signs Date Time Temp Pulse Resp B/P B/P Pulse O2 O2 Flow FiO2 Mean Ox Delivery Rate 12/13 0825 96 Nasal 5.5L Cannula 12/13 0608 97.8 72 20 110/70 94 Nasal 4.0L Cannula 12/13 0000 Nasal 5.5L Cannula 12/12 2232 97.4 87 18 110/72 92 Room Air 12/12 2213 4.0 12/12 1617 97.8 90 24 120/78 93 Nasal 5.5L Cannula 12/12 1544 92 Nasal 5.5L Cannula 12/12 1414 98.2 98 20 130/70 91 Nasal 5.5L Cannula Physical Exam General Appearance Alert, Oriented X3, Cooperative, Mild Distress Skin No Rashes, No Breakdown Neck Supple, Cardiovascular Normal S1, Normal S2, tachycardia Lungs decresed air entry, crackles bilaterally Abdomen Soft, No Tenderness, distended Neurological Normal Speech Extremities No Clubbing, No Cyanosis, mild edema, clubbing+ Results Last 24 Hrs of Micro Results: BC positive for GPCs in clusters from 12/09/16 in 08/26. Impression/Plan Impression/Plan Impression/Plan: 1. Acute hypoxic respiratory failure secondary to radiation pneumonitis, improving with steroids. 2. Advanced COPD. 3. History of radiation pneumonitis. 4. Hiatal hernia with reflux disease. 5. Chronic respiratory failure with worsening performance status. 6. Anxiety and depression. 7. Positive blood cultures, GPC's and 1 of 2 sets. The patient was given vancomycin. Final culture results are pending. Recommendations: * Continue prednisone, taper as previously recommended. * Please check a follow-up chest x-ray today. * Osteoporosis prevention to continue. * PCP prophylaxis with Bactrim to continue. * Moxifloxacin with a total of 7 days antibiotics. * Follow-up blood cultures - contaminant versus pathogen. The patient may require additional IV vancomycin. * Continue current nebs/TRC and bronchodilators including Symbicort and Spiriva. * Maintain oxygen saturations between 90 and 92%. * DVT prophylaxis at all times. * Blood sugar control while on high-dose steroids. * Discharge planning - anticipated discharge on 12/14 or 12/15. * Continue all supportive care.
--- NOTE | 2016-12-13 11:31 | RADIOLOGY REPORT ---
EXAMINATION:\H\ \N\XR CHEST CLINICAL INFORMATION: Respiratory failure. Follow up. COMPARISON: Chest done on 12/09/2016. TECHNIQUE: AP semierect 80 degrees frontal view of the chest was obtained. FINDINGS: Persistent stable extensive linear prominent interstitial lung markings are noted predominantly at both mid to lower lung field and right upper lung zone, consistent with diffuse interstitial disease. No superimposed discrete focal airspace opacity sestamibi pneumonia present. There is no radiographic evidence of CHF present. There is no pleural effusion present. The cardiac mediastinal silhouette remain moderate to severely enlarged and the outline is somewhat obscured due to extensive adjacent lung disease, similar to prior study. IMPRESSION: No significant change since 12/09/2016.
[2016-12-13 14:25] VITALS: BP 110/64
[2016-12-13 22:34] VITALS: BP 124/72
[2016-12-14 07:28] VITALS: BP 102/63
--- NOTE | 2016-12-14 07:54 | PN- Housestaff ---
GILA JURADO MD 12/14/16 0754: Subjective Follow-up For: 1. Acute on Chronic hypoxic respiratory failure secondary to advanced COPD 2. Acute pneumonitis secondary to radiation 3. Anion Gap Metabolic Acidosis - resolved 4. History of NSCLC S/P radiation therapy Subjective: Patient seen and examined. He is seen lying on his side in bed resting comfortably. He appears to be in no acute distress. He reports "not sleeping at all last night"and having a coughing fit that caused him to become short of breath. He reports that he was looking forward to going home today, however he does not feel safe or comfortable to do so. He otherwise feels tired, but has no new subjective complaints. Additionally he denies any lightheadedness/dizziness, headache, fever, chills, chest pain, worsening shortness of breath, productive cough, nausea, vomiting, diarrhea. No overnight events reported other than above. Review of Systems Constitutional: Reports: see HPI. Objective Last 24 Hrs of Vital Signs/I&O Vital Signs Date Time Temp Pulse Resp B/P B/P Pulse O2 O2 Flow FiO2 Mean Ox Delivery Rate 12/14 1234 91 Nasal 5.0L Cannula 12/14 0821 91 Nasal 5.0L Cannula 12/14 0800 Nasal 5.0L Cannula 12/14 0728 98.1 83 22 102/63 95 Nasal 5.0L Cannula 12/14 0000 92 Nasal 5.0L Cannula 12/13 2234 98.0 100 24 124/72 94 Nasal 4.0L Cannula 12/13 1638 93 Nasal 5.5L Cannula 12/13 1600 92 Nasal 5.0L Cannula 12/13 1425 97.9 97 20 110/64 92 Nasal 5.0L Cannula Intake & Output 12/14 1600 12/14 0800 12/14 0000 Intake Total 480 600 Output Total Balance 480 600 Intake, Oral 480 600 Physical Exam General Appearance: Alert, Oriented X3, Cooperative, No Acute Distress Other Physical Findings: General - well developed, well nourished obese elderly man in no acute distress HEENT - NCAT, PERRL, EOMI, anicteric sclera CVS -S1, S2 w/o m/g/r Resp - Decreased breath sound bilaterally, no wheezing/rhonchi GI - Soft, nontender, nondistended, bowel sounds intact Neuro - Awake and alert, CN II - XII grossly intact Ext - Normal pulses, no cyanosis/clubbing/edema Current Medications: Current Medications Sig/Rosetta Start time Last Medication Dose Route Stop Time Status Admin Acetaminophen 650 MG Q6P PRN 12/09 2245 AC 12/14 PO 1107 Albuterol Sulfate 3 ML EVERY 4 HRS/AWAKE 12/10 1600 AC 12/14 INH 1214 Alendronate Sodium 70 MG QWED 12/11 0700 AC 12/11 PO 0552 Alprazolam 0.5 MG DAILY NEEDED PRN 12/10 1000 AC 12/14 PO 12/17 0959 0300 Benzocaine/Menthol 1 SHAYNE Q2P PRN 12/12 0745 AC 12/13 PO 0031 Benzonatate 100 MG TID 12/12 1000 AC 12/14 PO 1107 Budesonide/ 2 PUF BID 12/10 1000 AC 12/14 Formoterol Fumarate INH 1108 Calcium Carbonate 1,250 MG DAILY 12/10 1000 AC 12/14 PO 1108 Cholecalciferol 1,000 IU DAILY 12/10 1000 AC 12/14 PO 1107 Cyanocobalamin 1,000 MCG QMON 12/16 0700 AC PO Guaifenesin 10 ML Q4P PRN 12/14 1430 UNVr PO Guaifenesin 10 ML ONCE ONE 12/14 0330 DC 12/14 PO 12/14 0331 0332 Heparin Sodium 5,000 UNIT Q8 12/10 0600 AC 12/14 (Porcine) SC 1424 Ibuprofen 400 MG TID PRN 12/09 2245 AC 12/12 PO 2213 Moxifloxacin HCl 400 MG DAILY 12/11 1000 AC 12/14 PO 12/17 1001 1107 Omeprazole 40 MG DAILY AC 12/10 0700 AC 12/14 PO 0527 Oxycodone HCl 10 MG Q6P PRN 12/09 2245 AC 12/14 PO 0300 Prednisone 60 MG DAILY 12/13 1000 AC 12/14 PO 1107 Ramelteon 8 MG QPM 12/14 2200 UNVr PO Tiotropium [place] 1 PUF DAILY 12/10 1000 AC 12/14 INH 1108 Trimethoprim/ 1 TAB MoWeFr@1000 12/11 1000 AC 12/13 Sulfamethoxazole PO 0920 Assessment/Plan Assessment: 71-year-old man with a past medical history of smoking with significant past history of GERD, anxiety and depression, non-small cell lung cancer status post radiation pnemonitis 2016, history of radiation pneumonitis, history of DVT but not on anticoagulation, COPD on 4 L of home oxygen, history of lung nodule, history of chronic respiratory failure, now presents with progressive dyspnea especially on exertion since the past few days. Recently he was seen by Dr. Lowery as an outpatient, and he was being tapered off of his prolonged by mouth steroid taper, had increased requirement of oxygen from 4 L to 6 L and oxygen saturation decreased to as low as 64%. He is being admitted for acute on chronic hypoxic respiratory failure, COPD exacerbation and radiation pneumonitis. Hospital Day 5 Patient reports not sleeping at all last night due to persistent cough and associated worsening shortness of breath. He received one dose of robitussin that offered him some relief. Cardiopulmonary examination is unremarkable. He was started on robitussin scheduled as needed with a sleep aid for tonight. He is to be discharged to home tomorrow. 1. Acute on Chronic hypoxic respiratory failure secondary to COPD exacerbation and radiation pneumonitis: - Patient has a history of chronic hypoxic respiratory failure, very severe COPD , on 4 liters of home oxygen, and a prolonged steroid taper that was started in July 2016. He was tapering his steroids Qmonthly; currently was on 20 mg daily and was supposed to transition to 10 mg daily. Unfortunately he started developing shortness of breath when he was being tapered off of steroids and had to be admitted for acute on chronic hypoxic respiratory failure, with oxygen as low as 64% on 4 L of oxygen that he normally uses at home. CT ruled out pulmonary embolism and shows baseline interstitial lung disease. - The night started with cough and some SOB, but then was confortable, slept well, 96% on 5.5 liters. Will taper down to maintain an oxygen saturation between 91 and 92%. - Will transition to PO Prednisone 60 mg PO Daily today and maintain for at least [address] Lowery's recommendations. - GPC in clusters in 08/26 BCx - awaiting S&S, received only one dose of Vanc, afebrile, and improving, will continue to monitor off Vanc - Strict TRC nebs [id number] - Continue with Symbicort - Continue with daily Spiriva - Is on moxifloxacin for a total of 7 days, day 3 today - Bactrim DS one tablet every Friday for PCP prophylaxis - Continue Fosamax, vitamin D and calcium. - Willl follow Pulm 2. Anion Gap Metabolic Acidosis/Lactic acidosis: - Resolved 3. History of NSCLC S/P radiation therapy - Continue current therapy - PCP Prophylaxis with Bactrim 4. GERD/hiatal hernia: - We'll continue with omeprazole 40 mg by mouth daily 5. Osteoarthritis: - We'll continue with vitamin D, Fosamax and PO calcium 6. Anxiety/depression: - We'll continue with Xanax as needed 7. Heart healthy diet 8. Due to prophylaxis with subcutaneous heparin 9. Full CODE STATUS Problem List: 1. Respiratory failure Pain Ratin Pain Location: None Pain Goal: Remain pain free Pain Plan: See assessment Tomorrow's Labs & Rationales: None Consulting Request: Consulting Specialty: Pulmonary Disease Consulting Physician: Dr. Howard Reason for Consult: Acute hypoxic resp failure MARTA CORTÉS,[facility] 12/14/16 1310: Attending MD Review Statement Attending Statement Attending MD Statement: examined this patient, discuss w/resident/PA/SHIP FASTENER, agreed w/resident/PA/SHIP FASTENER, discussed with family, reviewed EMR data (avail), discussed with nursing, discussed with case mgmt, reviewed images, amended to note Attending Assessment/Plan: Patient sitting comfortably in bed, not in distress. Not feeling that good today because wasn't able to sleep last night was of cough. We will continue his current medication and evaluate him tomorrow for his progress. Continue TRC nebs. Start Robitussin for cough.
--- NOTE | 2016-12-14 11:00 | PN- Pulmonary ---
Subjective HPI/Critical Care Issues: pt seen and examined afebrile hemodynamically stable 91% on 5LNC no nvdc feels better from pulmonary perspective Objective Current Medications: Current Medications Sig/Rosetta Start time Last Medication Dose Route Stop Time Status Admin Acetaminophen 650 MG Q6P PRN 12/09 2245 AC PO Albuterol Sulfate 3 ML EVERY 4 HRS/AWAKE 12/10 1600 AC 12/14 INH 0806 Alendronate Sodium 70 MG QWED 12/11 0700 AC 12/11 PO 0552 Alprazolam 0.5 MG DAILY NEEDED PRN 12/10 1000 AC 12/14 PO 12/17 0959 0300 Benzocaine/Menthol 1 SHAYNE Q2P PRN 12/12 0745 AC 12/13 PO 0031 Benzonatate 100 MG TID 12/12 1000 AC 12/13 PO 2120 Budesonide/ 2 PUF BID 12/10 1000 AC 12/13 Formoterol Fumarate INH 2120 Calcium Carbonate 1,250 MG DAILY 12/10 1000 AC 12/13 PO 0920 Cholecalciferol 1,000 IU DAILY 12/10 1000 AC 12/13 PO 0919 Cyanocobalamin 1,000 MCG QMON 12/16 0700 AC PO Guaifenesin 10 ML ONCE ONE 12/14 0330 DC 12/14 PO 12/14 0331 0332 Heparin Sodium 5,000 UNIT Q8 12/10 0600 AC 12/14 (Porcine) SC 0526 Ibuprofen 400 MG TID PRN 12/09 2245 AC 12/12 PO 2213 Moxifloxacin HCl 400 MG DAILY 12/11 1000 AC 12/13 PO 12/17 1001 0920 Omeprazole 40 MG DAILY AC 12/10 0700 AC 12/14 PO 0527 Oxycodone HCl 10 MG Q6P PRN 12/09 2245 AC 12/14 PO 0300 Patient Medication 1 ED .STK-MED ONE 12/13 1400 DC Teaching ED 12/13 1401 Prednisone 60 MG DAILY 12/13 1000 AC 12/13 PO 0920 Tiotropium [place] 1 PUF DAILY 12/10 1000 AC 12/13 INH 0919 Trimethoprim/ 1 TAB MoWeFr@1000 12/11 1000 AC 12/13 Sulfamethoxazole PO 0920 Vital Signs & I&O Last 24 Hrs of Vitals and I&O: Vital Signs Date Time Temp Pulse Resp B/P B/P Pulse O2 O2 Flow FiO2 Mean Ox Delivery Rate 12/14 0821 91 Nasal 5.0L Cannula 12/14 0728 98.1 83 22 102/63 95 Nasal 5.0L Cannula 12/14 0000 92 Nasal 5.0L Cannula 12/13 2234 98.0 100 24 124/72 94 Nasal 4.0L Cannula 12/13 1638 93 Nasal 5.5L Cannula 12/13 1600 92 Nasal 5.0L Cannula 12/13 1425 97.9 97 20 110/64 92 Nasal 5.0L Cannula Intake & Output 12/14 1600 12/14 0800 12/14 0000 Intake Total 480 600 Output Total Balance 480 600 Intake, Oral 480 600 Exam Other Physical Findings: gen awake and alert heent ncat cvs s1, s2 lungs rare rhonchi and diminished bs ext without edema Impression/Plan Impression/Plan Impression/Plan: Impression 71 year old man * acute on chronic hypoxemic respiratory failure secondary to radiation pneumonitis * hx of lung cancer * Severe COPD * hiatal hernia/reflux Plan - cont steroids as ordered with bactrim prophylaxis - will require f/u with Dr. Lowery upon dc - Avelox - maintain o2 sat >88% - trc/nebs - cxr stable - finger stick monitoring - dc planning within 24-48 hrs - bcx per primary team DVT prophylaxis
[2016-12-14] MEDS ORDERED: MOXIFLOXACIN H400 M2 PO (12:08)
[2016-12-14 14:32] VITALS: BP 123/65
[2016-12-14 23:19] VITALS: BP 93/57
[2016-12-15 05:49] VITALS: BP 92/68
--- NOTE | 2016-12-15 09:57 | PN- Housestaff ---
PAUL CORTÉ[facility] 12/15/16 0957: Subjective Follow-up For: 1. Acute on Chronic hypoxic respiratory failure secondary to advanced COPD 2. Acute pneumonitis secondary to radiation 3. Anion Gap Metabolic Acidosis - resolved 4. History of NSCLC S/P radiation therapy Subjective: Patient seen and examined. He is seen lying on his side in bed resting comfortably. He appears to be in no acute distress. He reports that he was looking forward to going home today. He shouldn't denies any current active complain. Review of Systems Constitutional: Reports: no symptoms. Objective Last 24 Hrs of Vital Signs/I&O Vital Signs Date Time Temp Pulse Resp B/P B/P Pulse O2 O2 Flow FiO2 Mean Ox Delivery Rate 12/15 1423 98.1 107 20 111/61 93 Nasal 5.0L Cannula 12/15 1014 92 Nasal 5.0L Cannula 12/15 0800 90 Nasal 5.0L Cannula 12/15 0549 97.8 74 18 92/68 91 Nasal 5.0L Cannula 12/15 0000 91 Nasal 4.0L Cannula 12/14 2319 97.9 71 22 93/57 92 Nasal 5.0L Cannula 12/14 1835 91 Nasal 5.0L Cannula 12/14 1600 90 Nasal 5.0L Cannula Intake & Output 12/15 1600 12/15 0800 12/15 0000 Intake Total 240 480 Output Total 300 300 Balance -60 180 Intake, Oral 240 480 Output, Urine 300 300 Physical Exam General Appearance: Alert, Oriented X3, Cooperative, No Acute Distress HEENT: Atraumatic, PERRLA, EOMI, Mucous Membr. moist/pink Cardiovascular: Regular Rate, Normal S1, Normal S2, No Murmurs Lungs: using over the right side lung. Abdomen: Normal Bowel Sounds, Soft, No Tenderness Neurological: Normal Speech Extremities: No Clubbing, No Cyanosis, No Edema Current Medications: Current Medications Sig/Rosetta Start time Last Medication Dose Route Stop Time Status Admin Acetaminophen 650 MG Q6P PRN 12/09 2245 AC 12/14 PO 1107 Albuterol Sulfate 3 ML BID 12/14 2200 AC 12/15 INH 1005 Albuterol Sulfate 3 ML EVERY 4 HRS/AWAKE 12/10 1600 DC 12/14 INH 1835 Alendronate Sodium 70 MG QWED 12/11 0700 AC 12/11 PO 0552 Alprazolam 0.5 MG DAILY NEEDED PRN 12/10 1000 AC 12/14 PO 12/17 0959 2105 Benzocaine/Menthol 1 SHAYNE Q2P PRN 12/12 0745 AC 12/13 PO 0031 Benzonatate 100 MG TID 12/15 0000 NR PO 12/24 2359 Benzonatate 100 MG TID 12/12 1000 AC 12/15 PO 1057 Budesonide/ 2 PUF BID 12/10 1000 AC 12/15 Formoterol Fumarate INH 1057 Calcium Carbonate 1,250 MG DAILY 12/10 1000 AC 12/15 PO 1057 Cholecalciferol 1,000 IU DAILY 12/10 1000 AC 12/15 PO 1057 Cyanocobalamin 1,000 MCG QMON 12/16 0700 AC PO Guaifenesin 10 ML Q4P PRN 12/14 1430 AC 12/14 PO 2105 Heparin Sodium 5,000 UNIT Q8 12/10 0600 AC 12/15 (Porcine) SC 1401 Ibuprofen 400 MG TID PRN 12/09 2245 AC 12/12 PO 2213 Moxifloxacin HCl 400 MG DAILY 12/15 0000 NR PO 12/17 2359 Moxifloxacin HCl 400 MG DAILY 12/11 1000 DC 12/14 PO 12/17 1001 1107 Omeprazole 40 MG DAILY AC 12/10 0700 AC 12/15 PO 0545 Oxycodone HCl 10 MG Q6P PRN 12/09 2245 AC 12/15 PO 1148 Prednisone 60 MG DAILY 12/13 1000 AC 12/15 PO 1057 Ramelteon 8 MG QPM 12/14 2200 AC 12/14 PO 2105 Tiotropium [place] 1 PUF DAILY 12/10 1000 AC 12/15 INH 1058 Trimethoprim/ 1 TAB MoWeFr@1000 12/11 1000 DC 12/13 Sulfamethoxazole PO 0920 Assessment/Plan Assessment: 71-year-old man with a past medical history of smoking with significant past history of GERD, anxiety and depression, non-small cell lung cancer status post radiation pnemonitis 2016, history of radiation pneumonitis, history of DVT but not on anticoagulation, COPD on 4 L of home oxygen, history of lung nodule, history of chronic respiratory failure, now presents with progressive dyspnea especially on exertion since the past few days. Recently he was seen by Dr. Lowery as an outpatient, and he was being tapered off of his prolonged by mouth steroid taper, had increased requirement of oxygen from 4 L to 6 L and oxygen saturation decreased to as low as 64%. He is being admitted for acute on chronic hypoxic respiratory failure, COPD exacerbation and radiation pneumonitis. Hospital Day 6 1. Acute on Chronic hypoxic respiratory failure secondary to COPD exacerbation and radiation pneumonitis: - Patient has a history of chronic hypoxic respiratory failure, very severe COPD , on 4 liters of home oxygen, and a prolonged steroid taper that was started in July 2016. He was tapering his steroids Qmonthly; currently was on 20 mg daily and was supposed to transition to 10 mg daily. Unfortunately he started developing shortness of breath when he was being tapered off of steroids and had to be admitted for acute on chronic hypoxic respiratory failure, with oxygen as low as 64% on 4 L of oxygen that he normally uses at home. CT ruled out pulmonary embolism and shows baseline interstitial lung disease. * will be discharged today on Prednisone 60 mg PO Daily to finish a total of [address] Lowery's recommendations. Steroids will then be decreased to 50 mg daily until he follow with Dr. Lowery as an outpatient. * TRC nebs [id number] * Continue with Symbicort * Continue with daily Spiriva * Is on moxifloxacin for a total of 7 days, day 4 today, will be discharge with 3 more pills * Bactrim DS one tablet every Friday for PCP prophylaxis * Continue Fosamax, vitamin D and calcium. * Willl follow Pulm 2. Anion Gap Metabolic Acidosis/Lactic acidosis: - Resolved 3. History of NSCLC S/P radiation therapy - Continue current therapy - PCP Prophylaxis with Bactrim 4. GERD/hiatal hernia: - We'll continue with omeprazole 40 mg by mouth daily 5. Osteoarthritis: - We'll continue with vitamin D, Fosamax and PO calcium 6. Anxiety/depression: - We'll continue with Xanax as needed 7. Heart healthy diet 8. Due to prophylaxis with subcutaneous heparin 9. Full CODE STATUS Problem List: 1. COPD (chronic obstructive pulmonary disease) Pain Ratin Pain Location: NA Pain Goal: Remain pain free Pain Plan: See A&P Tomorrow's Labs & Rationales: None Consulting Request: Consulting Specialty: Pulmonary Disease Consulting Physician: Dr. Howard Reason for Consult: Acute hypoxic resp failure MARTA CORTÉS,LATASHA 12/15/16 1633: Attending MD Review Statement Attending Statement Attending MD Statement: examined this patient, discuss w/resident/PA/RISK AND COMPLIANCE ANALYTICS DIRECTOR, agreed w/resident/PA/RISK AND COMPLIANCE ANALYTICS DIRECTOR, discussed with family, reviewed EMR data (avail), discussed with nursing, discussed with case mgmt, reviewed images, amended to note Attending Assessment/Plan: Patient sitting comfortably in bed not in any distress. Feeling much better today. Is able to walk to the bathroom without any distress. Still has cough. Seen by Dr. Leyva this morning. He'll be discharged home on steroid taper. Complete the course of antibiotic and follow up with Jens Lowery MD as an outpatient.
[2016-12-15] MEDS ORDERED: MOXIFLOXACIN H400 M2 PO (11:12)
--- NOTE | 2016-12-15 11:41 | PN- Pulmonary ---
Subjective HPI/Critical Care Issues: Patient seen and examined this morning. He appears to be returning to his respiratory baseline and is voicing the wished to be discharged today. He is saturating 91% on 5 L nasal cannula his usual oxygen requirements at home are 4 L and he claims that his oxygen saturations in the mid 80s at his baseline. Objective Current Medications: Current Medications Sig/Rosetta Start time Last Medication Dose Route Stop Time Status Admin Acetaminophen 650 MG Q6P PRN 12/09 2245 AC 12/14 PO 1107 Albuterol Sulfate 3 ML BID 12/14 2200 AC 12/15 INH 1005 Albuterol Sulfate 3 ML EVERY 4 HRS/AWAKE 12/10 1600 DC 12/14 INH 1835 Alendronate Sodium 70 MG QWED 12/11 0700 AC 12/11 PO 0552 Alprazolam 0.5 MG DAILY NEEDED PRN 12/10 1000 AC 12/14 PO 12/17 0959 2105 Benzocaine/Menthol 1 SHAYNE Q2P PRN 12/12 0745 AC 12/13 PO 0031 Benzonatate 100 MG TID 12/12 1000 AC 12/15 PO 1057 Budesonide/ 2 PUF BID 12/10 1000 AC 12/15 Formoterol Fumarate INH 1057 Calcium Carbonate 1,250 MG DAILY 12/10 1000 AC 12/15 PO 1057 Cholecalciferol 1,000 IU DAILY 12/10 1000 AC 12/15 PO 1057 Cyanocobalamin 1,000 MCG QMON 12/16 0700 AC PO Guaifenesin 10 ML Q4P PRN 12/14 1430 AC 12/14 PO 2105 Heparin Sodium 5,000 UNIT Q8 12/10 0600 AC 12/15 (Porcine) SC 0545 Ibuprofen 400 MG TID PRN 12/09 2245 AC 12/12 PO 2213 Moxifloxacin HCl 400 MG DAILY 12/11 1000 DC 12/14 PO 12/17 1001 1107 Omeprazole 40 MG DAILY AC 12/10 0700 AC 12/15 PO 0545 Oxycodone HCl 10 MG Q6P PRN 12/09 2245 AC 12/14 PO 0300 Prednisone 60 MG DAILY 12/13 1000 AC 12/15 PO 1057 Ramelteon 8 MG QPM 12/14 2200 AC 12/14 PO 2105 Tiotropium [place] 1 PUF DAILY 12/10 1000 AC 12/15 INH 1058 Trimethoprim/ 1 TAB MoWeFr@1000 12/11 1000 DC 12/13 Sulfamethoxazole PO 0920 Vital Signs & I&O Last 24 Hrs of Vitals and I&O: Vital Signs Date Time Temp Pulse Resp B/P B/P Pulse O2 O2 Flow FiO2 Mean Ox Delivery Rate 12/15 1014 92 Nasal 5.0L Cannula 12/15 0549 97.8 74 18 92/68 91 Nasal 5.0L Cannula 12/15 0000 91 Nasal 4.0L Cannula 12/14 2319 97.9 71 22 93/57 92 Nasal 5.0L Cannula 12/14 1835 91 Nasal 5.0L Cannula 12/14 1600 90 Nasal 5.0L Cannula 12/14 1432 98.0 103 22 123/65 90 Nasal 5.0L Cannula 12/14 1234 91 Nasal 5.0L Cannula Intake & Output 12/15 1600 12/15 0800 12/15 0000 Intake Total 240 480 Output Total 300 300 Balance -60 180 Intake, Oral 240 480 Output, Urine 300 300 Exam Other Physical Findings: gen awake and alert heent ncat cvs s1, s2 lungs rare rhonchi and diminished bs ext without edema Impression/Plan Impression/Plan Impression/Plan: Impression 71 year old man * acute on chronic hypoxemic respiratory failure secondary to radiation pneumonitis * hx of lung cancer * Severe COPD * hiatal hernia/reflux Plan - cont steroids as ordered with bactrim prophylaxis - will require f/u with Dr. Lowery upon dc - Status post Avelox - maintain o2 sat >88% - trc/nebs - cxr stable - finger stick monitoring - dc planning - bcx per primary team DVT prophylaxis
[2016-12-15 14:23] VITALS: BP 111/61
== END 2016-12-15 15:52 | DRG 205 ==
LOC: ERH 20:13 → 2NB 21:16 → ERHI 21:16 → 1NO 22:41 → 2NB 12-10 13:00
PROVIDERS: Internal Medicine Infectious Disease; Physician Assistant; ADMIT Internal Medicine
DX: J70.0 Acute pulmonary manifestations due to radiation (principal); J96.21 Acute and chronic respiratory failure with hypoxia; E87.2 Acidosis; I27.81 Cor pulmonale (chronic); C34.90 Malignant neoplasm of unspecified part of unspecified bronchus or lung; Z99.81 Dependence on supplemental oxygen; J44.1 Chronic obstructive pulmonary disease with (acute) exacerbation; F41.8 Other specified anxiety disorders; M19.90 Unspecified osteoarthritis, unspecified site; K44.9 Diaphragmatic hernia without obstruction or gangrene; K21.9 Gastro-esophageal reflux disease without esophagitis; Z87.891 Personal history of nicotine dependence; Z80.1 Family history of malignant neoplasm of trachea, bronchus and lung; Z83.6 Family history of other diseases of the respiratory system
CPT/HCPCS: 1NSP; 2NBP; 36415; 82436; 87040; 87070; 87147; 87449; 87450; 87804; 87804-59; 93005; 93010; 93306; 96374; 96375; J0456; J0696; J1644; J2920; J2930; J3370; J3490; J7040